=== PATIENT | male | born 1980 | race American Indian/Alaskan Native ===

== ENCOUNTER 2017-09-02 19:38 | Emergency (ER) | payer MEDICARE, OTHER, MEDICAID ==
[2017-09-02] MEDS ORDERED: Ondansetron 4 MG Tab.DIS PO ONE (19:39)
[2017-09-02] MEDS ORDERED: Ondansetron 4 MG/2 ML SDV IV ONE (20:17)
[2017-09-02] MEDS ORDERED: Pantoprazole 40 MG Vial IVPUSH ONE (20:17)
--- NOTE | 2017-09-02 20:23 | EDM.PDOC ---
ED HPI GENERAL MEDICAL PROBLEM - General Chief Complaint: Abdominal Pain Stated Complaint: BLEEDING FROM STOMACH Time Seen by Provider: 09/02/17 20:10 Source of Information: Reports: Patient History Limitations: Reports: No Limitations - History of Present Illness INITIAL COMMENTS - FREE TEXT/NARRATIVE: This 36 yo male patient reports to the ED with upper abdominal pain, nausea, vomiting and intermittent fevers. The patient reports his symptoms started at about 0400 this morning and have continued throughout the day. The patient reports she has noticed that he had blood in his vomit earlier today. The patient reports he has a history of cirrhosis, htn, diabetes and GERD. The patient reports he did drink Peppermint Schnapps yesterday prior to his symptoms starting. The patient has not been into his primary care facility. Onset: Today Onset Date: 09/02/17 Onset Time: 04:00 Duration: Constant, Getting Worse Location: Reports: Abdomen Quality: Reports: Ache, Burning, Sharp Severity: Severe Improves with: Reports: None Worsens with: Reports: None Associated Symptoms: Reports: Fever/Chills, Nausea/Vomiting, Weakness Middle Epigastric Pain Score (Numeric/FACES): 8 - Related Data Allergies Allergy/AdvReac Type Severity Reaction Status Date / Time ibuprofen Allergy Mild Difficulty Verified 09/02/17 20:14 Breathing acetaminophen Allergy Stomach Verified 09/02/17 20:14 Upset Home Meds: Home Meds Insulin Aspart [NovoLOG] 25 units INJECT TID 11/04/14 [History] Lisinopril [Lisinopril] 20 mg PO DAILY 11/04/14 [History] oxyCODONE [oxyCODONE] 10 mg PO Q6H PRN 11/04/14 [History] Ammonium Lactate [Lac-Hydrin 12% Crm] 1 applic TOP DAILY 09/27/15 [History] Esomeprazole [NexIUM] 1 cap PO DAILY 09/27/15 [History] Ibuprofen 1 - 2 tab PO Q6H PRN 09/27/15 [History] Insulin Detemir [Levemir] 25 units INJECT BID 09/27/15 [History] amLODIPine [Norvasc] 1 tab PO DAILY 09/27/15 [History] Famotidine [Pepcid AC] 20 mg PO BID 10/13/15 [History] DULoxetine [Cymbalta] 1 tab PO DAILY 12/03/16 [History] Gabapentin [Neurontin] 1 tab PO TID 12/03/16 [History] Thiamine [Vitamin B-1] 1 tab PO DAILY 12/03/16 [History] Past Medical History - Past Health History Medical/Surgical History: Denies Medical/Surgical History HEENT History: Reports: None Cardiovascular History: Reports: Hypertension Respiratory History: Reports: None Gastrointestinal History: Reports: Chronic Diarrhea, GERD, Hepatitis, Other ( See Below) Other Gastrointestinal History: HEP C Genitourinary History: Reports: None Musculoskeletal History: Reports: Other (See Below) Other Musculoskeletal History: many muscle surgeries; INJURY OF L SHOULDER Neurological History: Reports: None Psychiatric History: Reports: Other (See Below) Other Psychiatric History: ALCOHOL & NICOTINE HABITUATION Endocrine/Metabolic History: Reports: Diabetes, Type II, Obesity/BMI 30+ Hematologic History: Reports: None Immunologic History: Reports: Other (See Below) Other Immunologic History: HX OF MRSA Oncologic (Cancer) History: Reports: None Dermatologic History: Reports: Cellulitis, Other (See Below) Other Dermatologic History: WOUND OF LEG REQUIRED DEBRIBEMENT; ABCESS ON BACK REQUIRED I & D; ABCESS RIGHT HAND - Infectious Disease History Infectious Disease History: Reports: MRSA Other Infectious Disease History: PATIENT HAS LEARNING DISABILITY, POOR HISTORIAN - Past Surgical History HEENT Surgical History: Reports: None Cardiovascular Surgical History: Reports: None Respiratory Surgical History: Reports: None Male Surgical History: Reports: None Neurological Surgical History: Reports: None Oncologic Surgical History: Reports: None Social & Family History - Tobacco Use Smoking Status *Q: Current Some Day Smoker Years of Tobacco use: 29 Packs/Tins Daily: 1 Second Hand Smoke Exposure: No - Caffeine Use Caffeine Use: Reports: Coffee, Soda, Tea - Alcohol Use Days Per Week of Alcohol Use: 0 Date of Last Drink: 09/01/17 - Recreational Drug Use Recreational Drug Use: No Drug Use in Last 12 Months: No Recreational Drug Type: Reports: Marijuana/Hashish, Methamphetamine Recreational Drug Use Frequency: Monthly - Living Situation & Occupation Occupation: Unemployed ED ROS GENERAL - Review of Systems Review Of Systems: ROS reveals no pertinent complaints other than HPI. ED EXAM, GI/ABD - Physical Exam Exam: See Below Exam Limited By: No Limitations General Appearance: Alert, WD/WN, Moderate Distress Eyes: Bilateral: Normal Appearance, EOMI Ears: Normal External Exam, Normal Canal, Hearing Grossly Normal, Normal TMs Nose: Normal Inspection, Normal Mucosa, No Blood Throat/Mouth: Normal Inspection, Normal Lips, Normal Teeth, Normal Gums, Normal Oropharynx, Normal Voice, No Airway Compromise Head: Atraumatic, Normocephalic Neck: Normal Inspection, Supple, Non-Tender, Full Range of Motion Respiratory/Chest: No Respiratory Distress, Lungs Clear, Normal Breath Sounds, No Accessory Muscle Use, Chest Non-Tender Cardiovascular: Normal Peripheral Pulses, Regular Rate, Rhythm, No Edema, No Gallop, No JVD, No Murmur, No Rub GI/Abdominal Exam: Normal Bowel Sounds, Soft, No Organomegaly, No Distention, No Abnormal Bruit, No Mass, Pelvis Stable, Tender (epigastric tenderness) (Male) Exam: Deferred Back Exam: Normal Inspection, Full Range of Motion, NT Extremities: Normal Inspection, Normal Range of Motion, Non-Tender, Normal Capillary Refill, No Pedal Edema Neurological: Alert, Oriented, CN II-XII Intact, Normal Cognition, Normal Gait, Normal Reflexes, No Motor/Sensory Deficits Psychiatric: Normal Affect, Normal Mood Skin Exam: Warm, Dry, Intact, Normal Color, No Rash Lymphatic: No Adenopathy Course - Vital Signs Last Recorded V/S: Last Vital Signs Temp 37.6 C 09/02/17 21:28 Pulse 72 09/02/17 21:28 Resp 18 09/02/17 21:28 BP 130/96 H 09/02/17 21:28 Pulse Ox 100 09/02/17 21:28 - Orders/Labs/Meds Orders: Active Orders 24 hr Category Date Time Status Glucose [Blood Glucose Check, Bedside] [RC] ONETIME Care 09/02/17 20:10 Active DRUG SCREEN URINE BIORAD [URCHEM] Stat Lab 09/02/17 20:10 Uncollected UA W/MICROSCOPIC [URIN] Stat Lab 09/02/17 20:10 Uncollected Ciprofloxacin [Ciprofloxacin HCl] Med 09/02/17 22:59 Once 500 mg PO ONETIME ONE LORazepam [Ativan] Med 09/02/17 22:59 Once 0.5 mg PO ONETIME ONE metroNIDAZOLE Med 09/02/17 22:59 Once 500 mg PO ONETIME ONE Labs: Laboratory Tests 09/02/17 09/02/17 09/02/17 Range/Units 20:03 20:03 20:03 WBC 17.1 H (5.0-10.0) 10^3/uL RBC 5.52 (4.6-6.2) 10^6/uL Hgb 15.7 (14.0-18.0) g/dL Hct 46.3 (40.0-54.0) % MCV 83.9 (80-100) fL MCH 28.4 (27.0-34.0) pg MCHC 33.9 (33.0-35.0) g/dL Plt Count 414 D (150-450) 10^3/uL Neut % (Auto) 90.7 H (42.2-75.2) % Lymph % (Auto) 5.6 L (20.5-50.1) % [place] % (Auto) 3.6 (2-8) % Eos % (Auto) 0.0 L (1.0-3.0) % Baso % (Auto) 0.1 (0.0-1.0) % Sodium 135 (135-145) mmol/L Potassium 3.7 (3.6-5.0) mmol/L Chloride 96 L (101-111) mmol/L Carbon Dioxide 26.0 (21.0-31.0) mmol/L Anion Gap 16.7 BUN 25 H (7-18) mg/dL Creatinine 1.5 H (0.6-1.3) mg/dL Est Cr Clr Drug Dosing 67.13 mL/min Estimated GFR (MDRD) 54 BUN/Creatinine Ratio 16.66 Glucose 187 H (74-105) mg/dL POC Glucose (70-105) mg/dl Calcium 8.9 (8.4-10.2) mg/dl Magnesium 1.9 (1.8-2.5) mg/dL Total Bilirubin 0.8 (0.2-1.0) mg/dL AST 41 (10-42) IU/L ALT 26 (10-60) IU/L Alkaline Phosphatase 70 (42-121) IU/L Ammonia (11-35) umol/L Total Protein 6.7 (6.7-8.2) g/dl Albumin 2.4 L (3.2-5.5) g/dl Globulin 4.3 Albumin/Globulin Ratio 0.56 Amylase 44 (28-100) U/L Lipase 21 L (22-51) U/L Salicylates < 4 Acetaminophen < 10 Ethyl Alcohol < 5 mg/dL 09/02/17 09/02/17 Range/Units 20:11 20:38 WBC (5.0-10.0) 10^3/uL RBC (4.6-6.2) 10^6/uL Hgb (14.0-18.0) g/dL Hct (40.0-54.0) % MCV (80-100) fL MCH (27.0-34.0) pg MCHC (33.0-35.0) g/dL Plt Count (150-450) 10^3/uL Neut % (Auto) (42.2-75.2) % Lymph % (Auto) (20.5-50.1) % [place] % (Auto) (2-8) % Eos % (Auto) (1.0-3.0) % Baso % (Auto) (0.0-1.0) % Sodium (135-145) mmol/L Potassium (3.6-5.0) mmol/L Chloride (101-111) mmol/L Carbon Dioxide (21.0-31.0) mmol/L Anion Gap BUN (7-18) mg/dL Creatinine (0.6-1.3) mg/dL Est Cr Clr Drug Dosing mL/min Estimated GFR (MDRD) BUN/Creatinine Ratio Glucose (74-105) mg/dL POC Glucose 156 H (70-105) mg/dl Calcium (8.4-10.2) mg/dl Magnesium (1.8-2.5) mg/dL Total Bilirubin (0.2-1.0) mg/dL AST (10-42) IU/L ALT (10-60) IU/L Alkaline Phosphatase (42-121) IU/L Ammonia 6 L (11-35) umol/L Total Protein (6.7-8.2) g/dl Albumin (3.2-5.5) g/dl Globulin Albumin/Globulin Ratio Amylase (28-100) U/L Lipase (22-51) U/L Salicylates Acetaminophen Ethyl Alcohol mg/dL Meds: Medications Discontinued Medications Generic Name Dose Route Start Last Admin Trade Name Freq PRN Reason Stop Dose Admin Sodium Chloride 1,000 mls @ 999 mls/hr 09/02/17 21:23 09/02/17 21:27 Normal Saline IV 09/02/17 22:23 999 mls/hr .BOLUS ONE Administration Iopamidol 75 ml 09/02/17 21:30 09/02/17 21:45 Isovue-300 (61%) IVPUSH 09/02/17 21:31 75 ml ONETIME ONE Administration Ondansetron HCl 4 mg 09/02/17 20:17 09/02/17 20:28 Zofran IV 09/02/17 20:18 4 mg ONETIME ONE Administration Pantoprazole Sodium 80 mg 09/02/17 20:17 09/02/17 20:30 Protonix Iv IVPUSH 09/02/17 20:18 80 mg .BOLUS ONE Administration Departure - Departure Time of Disposition: 23:00 Disposition: Home, Self-Care 01 Condition: Fair Clinical Impression: Anxiety about health Diverticulosis Qualifiers: Diverticulosis site: diverticulosis of large intestine Diverticulosis bleeding : diverticulosis without bleeding Qualified Code(s): K57.30 - Diverticulosis of large intestine without perforation or abscess without bleeding - Discharge Information Instructions: Diverticulosis Forms: ED Department Discharge Care Plan Goals: The patient and family were advised of the examination, lab and CT results during the visit. The patient was given IV fluids, IV Zofran, IV Protonix, oral Cipro (500 mg), oral Metronidazole (500 mg) and oral Ativan (0.5 mg). The patient was discharged with scripts for Cipro (500 mg) #14 to take 1 by mouth 2 times per day for 7 days, Metronidazole (500 mg) #21 to take 1 by mouth 3 times per day for 7 days and Zofran (4 mg) #20 to take 1 by mouth every 6 hours as needed for nausea. If the patient has any additional symptoms or concerns, the patient should follow-up with his primary care provider or return to the emergency department. - My Orders Last 24 Hours: My Active Orders 09/02/17 20:10 Glucose [Blood Glucose Check, Bedside] [RC] ONETIME DRUG SCREEN URINE BIORAD [URCHEM] Stat UA W/MICROSCOPIC [URIN] Stat 09/02/17 22:59 Ciprofloxacin [Ciprofloxacin HCl] 500 mg PO ONETIME ONE LORazepam [Ativan] 0.5 mg PO ONETIME ONE metroNIDAZOLE 500 mg PO ONETIME ONE - Assessment/Plan Last 24 Hours: My Active Orders 09/02/17 20:10 Glucose [Blood Glucose Check, Bedside] [RC] ONETIME DRUG SCREEN URINE BIORAD [URCHEM] Stat UA W/MICROSCOPIC [URIN] Stat 09/02/17 22:59 Ciprofloxacin [Ciprofloxacin HCl] 500 mg PO ONETIME ONE LORazepam [Ativan] 0.5 mg PO ONETIME ONE metroNIDAZOLE 500 mg PO ONETIME ONE
[2017-09-02 20:41] LABS: ACETAMINOPHEN < 10
[2017-09-02] MEDS ORDERED: Sodium Chloride 0.9% 1,000 ML IV ONE (21:23)
[2017-09-02 21:29] VITALS: BP 130/96
[2017-09-02] MEDS ORDERED: Iopamidol 612 MG/ML 75 ML Bottle IVPUSH ONE (21:30)
[2017-09-02] MEDS ORDERED: LORazepam 0.5 MG Tab PO ONE (22:59)
[2017-09-02] MEDS ORDERED: Ciprofloxacin 500 MG Tab PO ONE (22:59)
[2017-09-02] MEDS ORDERED: metroNIDAZOLE 250 MG Tab PO ONE (22:59)
[2017-09-02] MEDS ORDERED: Ondansetron 4 MG Tab.DIS ONE (23:07)
== END 2017-09-02 23:14 | disposition home or self-care (01) ==
LOC: DL.ED 19:38
DX: K57.30 Diverticulosis of large intestine without perforation or abscess without bleeding (principal); I10 Essential (primary) hypertension; K21.9 Gastro-esophageal reflux disease without esophagitis; E11.9 Type 2 diabetes mellitus without complications; E66.9 Obesity, unspecified; F17.210 Nicotine dependence, cigarettes, uncomplicated; F41.9 Anxiety disorder, unspecified; Z88.6 Allergy status to analgesic agent; Z88.8 Allergy status to other drugs, medicaments and biological substances; Z79.899 Other long term (current) drug therapy; Z79.4 Long term (current) use of insulin
CPT/HCPCS: 36415; 74177; 80053; 80305; 81001; 82140; 82150; 82962; 83690; 83735; 85025; 87804; 96361; 96374; 96375; 99284; A9270; C9113; G0480; J2405; J7030; Q9967

== ENCOUNTER 2018-01-14 11:28 | Emergency (ER) | payer MEDICARE, OTHER ==
--- NOTE | 2018-01-14 11:40 | EDM.PDOC ---
ED HPI GENERAL MEDICAL PROBLEM - General Stated Complaint: ABD PAIN & OTHER ISSUES. FROM [facility] Time Seen by Provider: 01/14/18 11:45 Source of Information: Reports: Patient History Limitations: Reports: No Limitations - History of Present Illness INITIAL COMMENTS - FREE TEXT/NARRATIVE: This 37 yo male patient was sent to the ED from Dr. Jeffries's office due to medication non-compliance and upper abdominal pain. The patient originally made an appointment with Dr. Jeffries for "diabetes check", but reported upper abdominal pain upon arrival in the [facility] today. The patient was not seen by Dr. Jeffries today. Dr. Jeffries's nurse reported that the patient's blood pressure was 180's/110's upon arrival in the Clinic. The patient has previously been seen by other providers and has been non-compliant with previous treatment plans (through Dr. Starr and [place]). Onset: Unknown/Unsure Location: Reports: Generalized Quality: Reports: Other Severity: Moderate Improves with: Reports: None Worsens with: Reports: None Associated Symptoms: Reports: No Other Symptoms Abdomen Pain Score (Numeric/FACES): 5 - Related Data Allergies Allergy/AdvReac Type Severity Reaction Status Date / Time ibuprofen Allergy Mild Difficulty Verified 09/02/17 20:14 Breathing acetaminophen Allergy Stomach Verified 09/02/17 20:14 Upset Home Meds: Home Meds Insulin Aspart [NovoLOG] 25 units INJECT TID 11/04/14 [History] Lisinopril [Lisinopril] 20 mg PO DAILY 11/04/14 [History] oxyCODONE [oxyCODONE] 10 mg PO Q6H PRN 11/04/14 [History] Ammonium Lactate [Lac-Hydrin 12% Crm] 1 applic TOP DAILY 09/27/15 [History] Esomeprazole [NexIUM] 1 cap PO DAILY 09/27/15 [History] Ibuprofen 1 - 2 tab PO Q6H PRN 09/27/15 [History] Insulin Detemir [Levemir] 25 units INJECT BID 09/27/15 [History] amLODIPine [Norvasc] 1 tab PO DAILY 09/27/15 [History] Famotidine [Pepcid AC] 20 mg PO BID 10/13/15 [History] Gabapentin [Neurontin] 1 tab PO TID 12/03/16 [History] Thiamine [Vitamin B-1] 1 tab PO DAILY 12/03/16 [History] Past Medical History - Past Health History Medical/Surgical History: Denies Medical/Surgical History HEENT History: Reports: None Cardiovascular History: Reports: Hypertension Respiratory History: Reports: None Gastrointestinal History: Reports: Chronic Diarrhea, GERD, Hepatitis, Other ( See Below) Other Gastrointestinal History: HEP C Genitourinary History: Reports: None Musculoskeletal History: Reports: Other (See Below) Other Musculoskeletal History: many muscle surgeries; INJURY OF L SHOULDER Neurological History: Reports: None Psychiatric History: Reports: Other (See Below) Other Psychiatric History: ALCOHOL & NICOTINE HABITUATION Endocrine/Metabolic History: Reports: Diabetes, Type II, Obesity/BMI 30+ Hematologic History: Reports: None Immunologic History: Reports: Other (See Below) Other Immunologic History: HX OF MRSA Oncologic (Cancer) History: Reports: None Dermatologic History: Reports: Cellulitis, Other (See Below) Other Dermatologic History: WOUND OF LEG REQUIRED DEBRIBEMENT; ABCESS ON BACK REQUIRED I & D; ABCESS RIGHT HAND - Infectious Disease History Infectious Disease History: Reports: MRSA Other Infectious Disease History: PATIENT HAS LEARNING DISABILITY, POOR HISTORIAN - Past Surgical History HEENT Surgical History: Reports: None Cardiovascular Surgical History: Reports: None Respiratory Surgical History: Reports: None Male Surgical History: Reports: None Neurological Surgical History: Reports: None Oncologic Surgical History: Reports: None Social & Family History - Tobacco Use Smoking Status *Q: Current Some Day Smoker Years of Tobacco use: 29 Packs/Tins Daily: 1 Second Hand Smoke Exposure: No - Caffeine Use Caffeine Use: Reports: Coffee, Soda, Tea - Alcohol Use Days Per Week of Alcohol Use: 0 - Recreational Drug Use Recreational Drug Use: No Drug Use in Last 12 Months: No Recreational Drug Type: Reports: Marijuana/Hashish, Methamphetamine Recreational Drug Use Frequency: Monthly - Living Situation & Occupation Occupation: Unemployed ED ROS GENERAL - Review of Systems Review Of Systems: ROS reveals no pertinent complaints other than HPI. ED EXAM, GENERAL - Physical Exam Exam: See Below Exam Limited By: No Limitations General Appearance: Alert, WD/WN, No Apparent Distress Eye Exam: Bilateral Eye: EOMI, Normal Inspection, PERRL Ears: Normal External Exam, Normal Canal, Hearing Grossly Normal, Normal TMs Nose: Normal Inspection, Normal Mucosa, No Blood Throat/Mouth: Normal Inspection, Normal Lips, Normal Teeth, Normal Gums, Normal Oropharynx, Normal Voice, No Airway Compromise Head: Atraumatic, Normocephalic Neck: Normal Inspection, Supple, Non-Tender, Full Range of Motion Respiratory/Chest: No Respiratory Distress, Lungs Clear, Normal Breath Sounds, No Accessory Muscle Use, Chest Non-Tender Cardiovascular: Normal Peripheral Pulses, Regular Rate, Rhythm, No Edema, No Gallop, No JVD, No Murmur, No Rub GI/Abdominal: Normal Bowel Sounds, Soft, Non-Tender, No Organomegaly, No Distention, No Abnormal Bruit, No Mass (Male) Exam: Deferred Rectal (Males) Exam: Deferred Back Exam: Normal Inspection, Full Range of Motion, NT Extremities: Normal Inspection, Normal Range of Motion, Non-Tender, Normal Capillary Refill, No Pedal Edema Neurological: Alert, Oriented, CN II-XII Intact, Normal Gait Psychiatric: Normal Affect, Normal Mood Skin Exam: Warm, Dry, Intact, Normal Color, No Rash Lymphatic: No Adenopathy Course - Vital Signs Last Recorded V/S: Last Vital Signs Temp 36.4 C 01/14/18 11:35 Pulse 90 01/14/18 11:35 Resp 18 01/14/18 11:35 BP 158/110 H 01/14/18 12:38 Pulse Ox 100 01/14/18 11:35 - Orders/Labs/Meds Labs: Laboratory Tests 01/14/18 01/14/18 01/14/18 Range/Units 11:37 11:37 11:44 WBC (5.0-10.0) 10^3/uL RBC (4.6-6.2) 10^6/uL Hgb (14.0-18.0) g/dL Hct (40.0-54.0) % MCV (80-100) fL MCH (27.0-34.0) pg MCHC (33.0-35.0) g/dL Plt Count (150-450) 10^3/uL Neut % (Auto) (42.2-75.2) % Lymph % (Auto) (20.5-50.1) % [place] % (Auto) (2-8) % Eos % (Auto) (1.0-3.0) % Baso % (Auto) (0.0-1.0) % Sodium (135-145) mmol/L Potassium (3.6-5.0) mmol/L Chloride (101-111) mmol/L Carbon Dioxide (21.0-31.0) mmol/L Anion Gap BUN (7-18) mg/dL Creatinine (0.6-1.3) mg/dL Est Cr Clr Drug Dosing mL/min Estimated GFR (MDRD) BUN/Creatinine Ratio Glucose (74-105) mg/dL Calcium (8.4-10.2) mg/dl Magnesium 1.9 (1.8-2.5) mg/dL Total Bilirubin (0.2-1.0) mg/dL AST (10-42) IU/L ALT (10-60) IU/L Alkaline Phosphatase (42-121) IU/L Ammonia (11-35) umol/L Total Protein (6.7-8.2) g/dl Albumin (3.2-5.5) g/dl Globulin Albumin/Globulin Ratio Amylase 132 H (28-100) U/L Lipase 52 H (22-51) U/L Urine Color Light yellow (YELLOW) Urine Appearance Slightly cloudy (CLEAR) Urine pH 7.0 (5.0-9.0) Ur Specific [place] 1.015 (1.005-1.030) Urine Protein >=300 H (NEGATIVE) Urine Glucose (UA) 100 H (NEGATIVE) Urine Ketones Negative (NEGATIVE) Urine Occult Blood Small H (NEGATIVE) Urine Nitrite Negative (NEGATIVE) Urine Bilirubin Negative (NEGATIVE) Urine Urobilinogen 0.2 (0.2-1.0) mg/dL Ur Leukocyte Esterase Negative (NEGATIVE) Urine RBC 0-5 /HPF Urine WBC Not seen (0-5/HPF) /HPF Ur Epithelial Cells Rare /HPF Urine Mucus Rare /LPF Salicylates < 4 Urine Opiates Screen Negative (NEGATIVE) Ur Oxycodone Screen Positive H (NEGATIVE) Urine Methadone Screen Negative (NEGATIVE) Acetaminophen < 10 Ur Barbiturates Screen Negative (NEGATIVE) U Tricyclic Antidepress Negative (NEGATIVE) Ur Phencyclidine Scrn Negative (NEGATIVE) Ur Amphetamine Screen Negative (NEGATIVE) U Methamphetamines Scrn Negative (NEGATIVE) Urine MDMA Screen Negative (NEGATIVE) U Benzodiazepines Scrn Positive H (NEGATIVE) Urine Cocaine Screen Negative (NEGATIVE) U Marijuana (THC) Screen Positive H (NEGATIVE) Ethyl Alcohol < 5 mg/dL Ketones Negative 01/14/18 01/14/18 01/14/18 Range/Units 11:44 11:44 11:44 WBC 7.4 (5.0-10.0) 10^3/uL RBC 5.14 (4.6-6.2) 10^6/uL Hgb 14.3 (14.0-18.0) g/dL Hct 44.3 (40.0-54.0) % MCV 86.2 (80-100) fL MCH 27.8 (27.0-34.0) pg MCHC 32.3 L (33.0-35.0) g/dL Plt Count 369 (150-450) 10^3/uL Neut % (Auto) 67.6 (42.2-75.2) % Lymph % (Auto) 17.9 L (20.5-50.1) % [place] % (Auto) 8.3 H (2-8) % Eos % (Auto) 5.7 H (1.0-3.0) % Baso % (Auto) 0.5 (0.0-1.0) % Sodium 137 (135-145) mmol/L Potassium 4.9 (3.6-5.0) mmol/L Chloride 110 D (101-111) mmol/L Carbon Dioxide 19.0 L (21.0-31.0) mmol/L Anion Gap 12.9 BUN 17 (7-18) mg/dL Creatinine 1.6 H (0.6-1.3) mg/dL Est Cr Clr Drug Dosing 66.54 mL/min Estimated GFR (MDRD) 49 BUN/Creatinine Ratio 10.62 Glucose 114 H (74-105) mg/dL Calcium 8.4 (8.4-10.2) mg/dl Magnesium (1.8-2.5) mg/dL Total Bilirubin 0.4 (0.2-1.0) mg/dL AST 29 (10-42) IU/L ALT 28 (10-60) IU/L Alkaline Phosphatase 63 (42-121) IU/L Ammonia 21 (11-35) umol/L Total Protein 6.2 L (6.7-8.2) g/dl Albumin 2.2 L (3.2-5.5) g/dl Globulin 4.0 Albumin/Globulin Ratio 0.55 Amylase (28-100) U/L Lipase (22-51) U/L Urine Color (YELLOW) Urine Appearance (CLEAR) Urine pH (5.0-9.0) Ur Specific [place] (1.005-1.030) Urine Protein (NEGATIVE) Urine Glucose (UA) (NEGATIVE) Urine Ketones (NEGATIVE) Urine Occult Blood (NEGATIVE) Urine Nitrite (NEGATIVE) Urine Bilirubin (NEGATIVE) Urine Urobilinogen (0.2-1.0) mg/dL Ur Leukocyte Esterase (NEGATIVE) Urine RBC /HPF Urine WBC (0-5/HPF) /HPF Ur Epithelial Cells /HPF Urine Mucus /LPF Salicylates Urine Opiates Screen (NEGATIVE) Ur Oxycodone Screen (NEGATIVE) Urine Methadone Screen (NEGATIVE) Acetaminophen Ur Barbiturates Screen (NEGATIVE) U Tricyclic Antidepress (NEGATIVE) Ur Phencyclidine Scrn (NEGATIVE) Ur Amphetamine Screen (NEGATIVE) U Methamphetamines Scrn (NEGATIVE) Urine MDMA Screen (NEGATIVE) U Benzodiazepines Scrn (NEGATIVE) Urine Cocaine Screen (NEGATIVE) U Marijuana (THC) Screen (NEGATIVE) Ethyl Alcohol mg/dL Ketones Meds: Medications Discontinued Medications Generic Name Dose Route Start Last Admin Trade Name Freq PRN Reason Stop Dose Admin Amlodipine Besylate 5 mg 01/14/18 12:31 01/14/18 12:38 Norvasc PO 01/14/18 12:32 5 mg ONETIME ONE Administration Lisinopril 20 mg 01/14/18 12:31 01/14/18 12:38 Prinivil PO 01/14/18 12:32 20 mg ONETIME ONE Administration Departure - Departure Time of Disposition: 13:29 Disposition: Home, Self-Care 01 Condition: Fair Clinical Impression: Hypertension Qualifiers: Hypertension type: unspecified Qualified Code(s): I10 - Essential (primary) hypertension Diabetes Qualifiers: Diabetes mellitus type: type 2 Diabetes mellitus complication status: with unspecified complications Diabetes mellitus terminal manager insulin use: with terminal manager use Qualified Code(s): E11.8 - Type 2 diabetes mellitus with unspecified complications - Discharge Information Instructions: Managing Your Hypertension, Type 2 Diabetes Mellitus, Diagnosis, Adult, [id number] Forms: ED Department Discharge Care Plan Goals: The patient was advised of the examination and lab results during the visit. The patient was given an oral dose of Norvasc and Lisinopril while in the ED. The patient was discharged with Norvasc (5 mg) #7 to take 1 by mouth daily and Lisinopril (20 mg) #14 to take 1 by mouth 2 times per day. The patient was advised to physically walk over to [facility] to establish another appointment with a primary care provider for continued evaluation and further management. If the patient has any additional symptoms or concerns, the patient should follow-up with his primary care facility or return to the emergency department.
[2018-01-14 12:14] LABS: ACETAMINOPHEN < 10
[2018-01-14 12:31] VITALS: BP 158/110
[2018-01-14] MEDS: amLODIPine 5 MG Tab PO ONE (12:38)
[2018-01-14] MEDS: Lisinopril 20 MG Tab PO ONE (12:38)
== END 2018-01-14 13:35 | disposition home or self-care (01) ==
LOC: DL.ED 11:28
DX: I10 Essential (primary) hypertension (principal); E11.8 Type 2 diabetes mellitus with unspecified complications; E66.9 Obesity, unspecified; K21.9 Gastro-esophageal reflux disease without esophagitis; Z79.899 Other long term (current) drug therapy; Z88.6 Allergy status to analgesic agent
CPT/HCPCS: 36415; 80053; 80305; 81001; 82009; 82140; 82150; 83690; 83735; 85025; 99284; A9270; G0480

== ENCOUNTER 2018-03-16 19:54 | Inpatient (IN) | payer MEDICARE, MEDICAID ==
--- NOTE | 2018-03-16 21:09 | EDM.PDOC ---
ED HPI GENERAL MEDICAL PROBLEM - General Chief Complaint: General Stated Complaint: ACUTE RENAL FAILURE Time Seen by Provider: 03/16/18 22:00 Source of Information: Reports: Patient, RN Notes Reviewed History Limitations: Reports: No Limitations - History of Present Illness INITIAL COMMENTS - FREE TEXT/NARRATIVE: ED with c/o of lower leg swelling, chills, cough. Lowere leg pain bilaterally, started 4-5 days ago. Was seen in clinic today and [facility] for renal failure recommended. Patient had no transportation so came to ED. Bilateral Feet Pain Score (Numeric/FACES): 8 - Related Data Allergies Allergy/AdvReac Type Severity Reaction Status Date / Time ibuprofen Allergy Mild Difficulty Verified 03/16/18 23:34 Breathing acetaminophen Allergy Stomach Verified 03/16/18 23:34 Upset Home Meds: Home Meds Insulin Aspart [NovoLOG] 30 units INJECT TID 11/04/14 [History] oxyCODONE 10 mg PO BID PRN 11/04/14 [History] Insulin Detemir [Levemir] 60 units INJECT BEDTIME 09/27/15 [History] amLODIPine [Norvasc] 2 tab PO DAILY 09/27/15 [History] Gabapentin [Neurontin] 1 tab PO TID 12/03/16 [History] Past Medical History - Past Health History Medical/Surgical History: Denies Medical/Surgical History HEENT History: Reports: None Cardiovascular History: Reports: Hypertension Respiratory History: Reports: None Gastrointestinal History: Reports: Chronic Diarrhea, GERD, Hepatitis, Other ( See Below) Other Gastrointestinal History: HEP C Genitourinary History: Reports: None Musculoskeletal History: Reports: Other (See Below) Other Musculoskeletal History: many muscle surgeries; INJURY OF L SHOULDER Neurological History: Reports: None Psychiatric History: Reports: Other (See Below) Other Psychiatric History: ALCOHOL & NICOTINE HABITUATION Endocrine/Metabolic History: Reports: Diabetes, Type II, Obesity/BMI 30+ Hematologic History: Reports: None Immunologic History: Reports: Other (See Below) Other Immunologic History: HX OF MRSA Oncologic (Cancer) History: Reports: None Dermatologic History: Reports: Cellulitis, Other (See Below) Other Dermatologic History: WOUND OF LEG REQUIRED DEBRIBEMENT; ABCESS ON BACK REQUIRED I & D; ABCESS RIGHT HAND - Infectious Disease History Infectious Disease History: Reports: Hepatitis C, MRSA Other Infectious Disease History: PATIENT HAS LEARNING DISABILITY, POOR HISTORIAN - Past Surgical History HEENT Surgical History: Reports: None Cardiovascular Surgical History: Reports: None Respiratory Surgical History: Reports: None Male Surgical History: Reports: None Neurological Surgical History: Reports: None Oncologic Surgical History: Reports: None Social & Family History - Family History Family Medical History: Noncontributory - Tobacco Use Smoking Status *Q: Never Smoker Years of Tobacco use: 29 Packs/Tins Daily: 1 Second Hand Smoke Exposure: No - Caffeine Use Caffeine Use: Reports: Coffee, Soda - Alcohol Use Days Per Week of Alcohol Use: 0 - Recreational Drug Use Recreational Drug Use: No Drug Use in Last 12 Months: No Recreational Drug Type: Reports: Marijuana/Hashish, Methamphetamine Recreational Drug Use Frequency: Monthly - Living Situation & Occupation Occupation: Unemployed ED ROS GENERAL - Review of Systems Review Of Systems: See Below Constitutional: Reports: Malaise HEENT: Reports: No Symptoms Respiratory: Reports: Cough Cardiovascular: Reports: Edema (bilateral llower legs to knees) GI/Abdominal: Reports: No Symptoms : Reports: Other (difficulty with starting stream) Musculoskeletal: Reports: Leg Pain Skin: Reports: No Symptoms Neurological: Reports: No Symptoms ED EXAM, GENERAL - Physical Exam Exam: See Below Exam Limited By: No Limitations General Appearance: Alert, Mild Distress Eye Exam: Bilateral Eye: EOMI Ears: Normal External Exam, Normal TMs Nose: Normal Inspection Throat/Mouth: Normal Inspection Head: Atraumatic, Normocephalic Neck: Normal Inspection Respiratory/Chest: Lungs Clear, Decreased Breath Sounds (bases), Other (dry cough). No: Crackles, Rales, Wheezing Cardiovascular: Normal Peripheral Pulses, Regular Rate, Rhythm GI/Abdominal: Normal Bowel Sounds, Soft, Pelvis Stable Back Exam: Normal Inspection Extremities: Other (4+ edema bilateral lower extremities painful to touch) Neurological: Alert, Oriented, Normal Cognition Skin Exam: Warm, Dry, Intact Course - Vital Signs Last Recorded V/S: Last Vital Signs Temp 98.0 F 03/17/18 03:12 Pulse 93 03/17/18 03:12 Resp 18 03/17/18 03:12 BP 150/95 H 03/17/18 03:12 Pulse Ox 99 03/16/18 23:12 - Orders/Labs/Meds Orders: Active Orders 24 hr Category Date Time Status Glucose [Blood Glucose Check, Bedside] [RC] QIDACANDBED Care 03/16/18 23:09 Active Abdomen Ltd [US] Routine Exams 03/17/18 08:00 Ordered BASIC METABOLIC PANEL,BMP [CHEM] AM Lab 03/17/18 05:15 Ordered CBC WITH AUTO DIFF [HEME] AM Lab 03/17/18 05:15 Ordered CULTURE BLOOD [BC] Stat Lab 03/16/18 21:00 Received CULTURE BLOOD [BC] Stat Lab 03/16/18 21:05 Received UA W/MICROSCOPIC [URIN] Stat Lab 03/16/18 21:13 Ordered Furosemide [Lasix] Med 03/16/18 23:15 Active 40 mg IVPUSH BID Insulin Aspart [NovoLOG] Med 03/17/18 08:00 Active See Protocol SUBCUT TIDAC Nicotine [Habitrol] Med 03/16/18 23:15 Active 14 mg TRDERM DAILY oxyCODONE Med 03/16/18 23:08 Active 5 mg PO Q6H PRN Blood Culture x2 Reflex Set [OM.PC] Stat Oth 03/16/18 20:33 Ordered Medication Orders Furosemide (Lasix) 40 mg IVPUSH BID NITIN Last Admin: 03/17/18 00:08 Dose: 40 mg Heparin Sodium (Porcine) (Heparin Sodium) 5,000 units SUBCUT Q8HR NITIN Insulin Aspart (Novolog) 0 unit SUBCUT TIDAC NITIN; Protocol Nicotine (Habitrol) 14 mg TRDERM DAILY [facility] Last Admin: 03/16/18 23:30 Dose: Not Given Oxycodone HCl (Oxycodone) 5 mg PO Q6H PRN PRN Reason: Pain Last Admin: 03/16/18 23:53 Dose: 5 mg Sodium Chloride (Saline Flush) 10 ml FLUSH ASDIRECTED PRN PRN Reason: Keep Vein Open Zolpidem Tartrate (Ambien) 5 mg PO BEDTIME PRN PRN Reason: Sleep Last Admin: 03/17/18 00:00 Dose: 5 mg Labs: Laboratory Tests 03/16/18 03/16/18 03/16/18 Range/Units 21:00 21:00 21:00 WBC 9.3 (5.0-10.0) 10^3/uL RBC 3.95 L (4.6-6.2) 10^6/uL Hgb 11.2 L D (14.0-18.0) g/dL Hct 35.4 L (40.0-54.0) % MCV 89.6 D (80-100) fL MCH 28.4 (27.0-34.0) pg MCHC 31.6 L (33.0-35.0) g/dL Plt Count 332 (150-450) 10^3/uL Neut % (Auto) 68.4 (42.2-75.2) % Lymph % (Auto) 15.3 L (20.5-50.1) % [place] % (Auto) 9.3 H (2-8) % Eos % (Auto) 6.6 H (1.0-3.0) % Baso % (Auto) 0.4 (0.0-1.0) % Sodium 136 (135-145) mmol/L Potassium 4.7 (3.6-5.0) mmol/L Chloride 112 H (101-111) mmol/L Carbon Dioxide 21.0 (21.0-31.0) mmol/L Anion Gap 7.7 BUN 27 H (7-18) mg/dL Creatinine 2.3 H (0.6-1.3) mg/dL Est Cr Clr Drug Dosing 71.89 mL/min Estimated GFR (MDRD) 33 BUN/Creatinine Ratio 11.73 Glucose 123 H (74-105) mg/dL Lactic Acid 0.7 (0.5-2.2) mmol/L Calcium 7.4 L (8.4-10.2) mg/dl Magnesium 1.7 L (1.8-2.5) mg/dL Total Bilirubin 0.3 (0.2-1.0) mg/dL AST 48 H (10-42) IU/L ALT 40 (10-60) IU/L Alkaline Phosphatase 83 (42-121) IU/L Troponin I 0.04 H* (0.00-0.02) ng/ml B-Natriuretic Peptide (0-100) pg/ml Total Protein 5.2 L (6.7-8.2) g/dl Albumin 1.5 L (3.2-5.5) g/dl Globulin 3.7 Albumin/Globulin Ratio 0.41 Urine Color (YELLOW) Urine Appearance (CLEAR) Urine pH (5.0-9.0) Ur Specific [place] (1.005-1.030) Urine Protein (NEGATIVE) Urine Glucose (UA) (NEGATIVE) Urine Ketones (NEGATIVE) Urine Occult Blood (NEGATIVE) Urine Nitrite (NEGATIVE) Urine Bilirubin (NEGATIVE) Urine Urobilinogen (0.2-1.0) mg/dL Ur Leukocyte Esterase (NEGATIVE) Urine RBC /HPF Urine WBC (0-5/HPF) /HPF Ur Epithelial Cells /HPF Urine Bacteria (0-FEW/HPF) /HPF Ketones Negative 03/16/18 03/16/18 Range/Units 21:00 21:13 WBC (5.0-10.0) 10^3/uL RBC (4.6-6.2) 10^6/uL Hgb (14.0-18.0) g/dL Hct (40.0-54.0) % MCV (80-100) fL MCH (27.0-34.0) pg MCHC (33.0-35.0) g/dL Plt Count (150-450) 10^3/uL Neut % (Auto) (42.2-75.2) % Lymph % (Auto) (20.5-50.1) % [place] % (Auto) (2-8) % Eos % (Auto) (1.0-3.0) % Baso % (Auto) (0.0-1.0) % Sodium (135-145) mmol/L Potassium (3.6-5.0) mmol/L Chloride (101-111) mmol/L Carbon Dioxide (21.0-31.0) mmol/L Anion Gap BUN (7-18) mg/dL Creatinine (0.6-1.3) mg/dL Est Cr Clr Drug Dosing mL/min Estimated GFR (MDRD) BUN/Creatinine Ratio Glucose (74-105) mg/dL Lactic Acid (0.5-2.2) mmol/L Calcium (8.4-10.2) mg/dl Magnesium (1.8-2.5) mg/dL Total Bilirubin (0.2-1.0) mg/dL AST (10-42) IU/L ALT (10-60) IU/L Alkaline Phosphatase (42-121) IU/L Troponin I (0.00-0.02) ng/ml B-Natriuretic Peptide 1170 H (0-100) pg/ml Total Protein (6.7-8.2) g/dl Albumin (3.2-5.5) g/dl Globulin Albumin/Globulin Ratio Urine Color Yellow (YELLOW) Urine Appearance Clear (CLEAR) Urine pH 7.0 (5.0-9.0) Ur Specific [place] 1.025 (1.005-1.030) Urine Protein >=300 H (NEGATIVE) Urine Glucose (UA) 250 H (NEGATIVE) Urine Ketones Negative (NEGATIVE) Urine Occult Blood Moderate H (NEGATIVE) Urine Nitrite Negative (NEGATIVE) Urine Bilirubin Negative (NEGATIVE) Urine Urobilinogen 0.2 (0.2-1.0) mg/dL Ur Leukocyte Esterase Negative (NEGATIVE) Urine RBC 0-5 /HPF Urine WBC 0-5 (0-5/HPF) /HPF Ur Epithelial Cells Few /HPF Urine Bacteria Few (0-FEW/HPF) /HPF Ketones Meds: Medications Generic Name Dose Route Start Last Admin Trade Name Freq PRN Reason Stop Dose Admin Furosemide 40 mg 03/16/18 23:15 03/17/18 00:08 Lasix IVPUSH 40 mg BID NITIN Administration Heparin Sodium (Porcine) 5,000 units 03/17/18 06:00 Heparin Sodium SUBCUT Q8HR [facility] Insulin Aspart 0 unit 03/17/18 08:00 Novolog SUBCUT TIDAC [facility] Protocol Nicotine 14 mg 03/16/18 23:15 03/16/18 23:30 Habitrol TRDERM Not Given DAILY [facility] Oxycodone HCl 5 mg 03/16/18 23:08 03/16/18 23:53 Oxycodone PO 5 mg Q6H PRN Administration Pain Sodium Chloride 10 ml 03/16/18 23:12 Saline Flush FLUSH ASDIRECTED PRN Keep Vein Open Zolpidem Tartrate 5 mg 03/16/18 23:12 03/17/18 00:00 Ambien PO 5 mg BEDTIME PRN Administration Sleep Departure - Departure Time of Disposition: 23:30 Disposition: Admitted As Inpatient 68 Condition: Undetermined Clinical Impression: Non compliance w medication regimen, IDDM (insulin dependent diabetes mellitus) , Pain, Elevated troponin Acute renal failure Qualifiers: Acute renal failure type: unspecified Qualified Code(s): N17.9 - Acute kidney failure, unspecified - Discharge Information - My Orders Last 24 Hours: My Active Orders 03/16/18 20:33 Blood Culture x2 Reflex Set [OM.PC] Stat 03/16/18 21:00 CULTURE BLOOD [BC] Stat 03/16/18 21:05 CULTURE BLOOD [BC] Stat 03/16/18 21:13 UA W/MICROSCOPIC [URIN] Stat - Assessment/Plan Last 24 Hours: My Active Orders 03/16/18 20:33 Blood Culture x2 Reflex Set [OM.PC] Stat 03/16/18 21:00 CULTURE BLOOD [BC] Stat 03/16/18 21:05 CULTURE BLOOD [BC] Stat 03/16/18 21:13 UA W/MICROSCOPIC [URIN] Stat
[2018-03-16 21:43] LABS: CHLORIDE,CL 112 mmol/L (101-111); SODIUM,NA 136 mmol/L (135-145)
--- NOTE | 2018-03-16 23:20 | PCM.HP ---
H&P History of Present Illness - General Date of Service: 03/16/18 Admit Problem/Dx: Admission Diagnosis/Problem Admission Diagnosis/Problem Acute renal failure Source of Information: Patient, Provider - History of Present Illness Initial Comments - Free Text/Narative: The patient is a 37-year-old gentleman with a history of diabetes, hypertension , chronic pain. He says he has been off medications for about a month. Except his oxycodone. He was not taking JOSE R inhibitor, not taking other pain medications other than oxycodone, not using insulin. The patient presented with bilateral lower extremity swelling. The swelling started about 5 days prior to presentation. This has been worsening and severe. Associated with shortness of breath with activity. No chest pain. Bilateral Feet Pain Score (Numeric/FACES): 8 - Related Data Allergies/Adverse Reactions: Allergies Allergy/AdvReac Type Severity Reaction Status Date / Time ibuprofen Allergy Mild Difficulty Verified 03/16/18 19:26 Breathing acetaminophen Allergy Stomach Verified 03/16/18 19:26 Upset Home Medications: Home Meds Insulin Aspart [NovoLOG] 25 units INJECT TID 11/04/14 [History] Lisinopril 20 mg PO DAILY 11/04/14 [History] oxyCODONE 10 mg PO Q6H PRN 11/04/14 [History] Ammonium Lactate [Lac-Hydrin 12% Crm] 1 applic TOP DAILY 09/27/15 [History] Esomeprazole [NexIUM] 1 cap PO DAILY 09/27/15 [History] Ibuprofen 1 - 2 tab PO Q6H PRN 09/27/15 [History] Insulin Detemir [Levemir] 25 units INJECT BID 09/27/15 [History] amLODIPine [Norvasc] 1 tab PO DAILY 09/27/15 [History] Famotidine [Pepcid AC] 20 mg PO BID 10/13/15 [History] Gabapentin [Neurontin] 1 tab PO TID 12/03/16 [History] Thiamine [Vitamin B-1] 1 tab PO DAILY 12/03/16 [History] Past Medical History - Past Health History Medical/Surgical History: Denies Medical/Surgical History HEENT History: Reports: None Cardiovascular History: Reports: Hypertension Respiratory History: Reports: None Gastrointestinal History: Reports: Chronic Diarrhea, GERD, Hepatitis, Other ( See Below) Other Gastrointestinal History: HEP C Genitourinary History: Reports: None Musculoskeletal History: Reports: Other (See Below) Other Musculoskeletal History: many muscle surgeries; INJURY OF L SHOULDER Neurological History: Reports: None Psychiatric History: Reports: Other (See Below) Other Psychiatric History: ALCOHOL & NICOTINE HABITUATION Endocrine/Metabolic History: Reports: Diabetes, Type II, Obesity/BMI 30+ Hematologic History: Reports: None Immunologic History: Reports: Other (See Below) Other Immunologic History: HX OF MRSA Oncologic (Cancer) History: Reports: None Dermatologic History: Reports: Cellulitis, Other (See Below) Other Dermatologic History: WOUND OF LEG REQUIRED DEBRIBEMENT; ABCESS ON BACK REQUIRED I & D; ABCESS RIGHT HAND - Infectious Disease History Infectious Disease History: Reports: MRSA Other Infectious Disease History: PATIENT HAS LEARNING DISABILITY, POOR HISTORIAN - Past Surgical History HEENT Surgical History: Reports: None Cardiovascular Surgical History: Reports: None Respiratory Surgical History: Reports: None Male Surgical History: Reports: None Neurological Surgical History: Reports: None Oncologic Surgical History: Reports: None Social & Family History - Family History Family Medical History: Noncontributory - Tobacco Use Smoking Status *Q: Current Some Day Smoker Years of Tobacco use: 29 Packs/Tins Daily: 1 Second Hand Smoke Exposure: No - Caffeine Use Caffeine Use: Reports: Coffee, Soda, Tea - Alcohol Use Days Per Week of Alcohol Use: 0 - Recreational Drug Use Recreational Drug Use: No Drug Use in Last 12 Months: No Recreational Drug Type: Reports: Marijuana/Hashish, Methamphetamine Recreational Drug Use Frequency: Monthly - Living Situation & Occupation Occupation: Unemployed H&P Review of Systems - Review of Systems: Review Of Systems: See Below General: Denies: Fever Pulmonary: Reports: Shortness of Breath Cardiovascular: Reports: Edema. Denies: Chest Pain (With activity) Gastrointestinal: Denies: Abdominal Pain Genitourinary: Denies: Dysuria, Frequency Psychiatric: Denies: Confusion Exam - Exam Exam: See Below - Vital Signs Vital Signs: Last Vital Signs Temp 37.4 C 03/16/18 22:11 Pulse 84 03/16/18 22:11 Resp 18 03/16/18 22:11 BP 106/88 03/16/18 22:11 Pulse Ox 97 03/16/18 22:11 Weight: 113.376 kg - Exam Quality Assessment: No: Supplemental Oxygen General: Alert, Oriented Neck: Supple Lungs: Clear to Auscultation, Normal Respiratory Effort Cardiovascular: Regular Rate, Regular Rhythm GI/Abdominal Exam: Normal Bowel Sounds, Soft, Non-Tender Extremities: Pedal Edema (3+ bilateral edema up to thigh and abdominal wall) Skin: Warm, Dry Neuro Extensive - Mental Status: Alert, Oriented x3, Normal Mood/Affect - Patient Data Lab Results Last 24 hrs: Laboratory Results - last 24 hr 03/16/18 03/16/18 03/16/18 Range/Units 21:00 21:00 21:00 WBC 9.3 (5.0-10.0) 10^3/uL RBC 3.95 L (4.6-6.2) 10^6/uL Hgb 11.2 L D (14.0-18.0) g/dL Hct 35.4 L (40.0-54.0) % MCV 89.6 D (80-100) fL MCH 28.4 (27.0-34.0) pg MCHC 31.6 L (33.0-35.0) g/dL Plt Count 332 (150-450) 10^3/uL Neut % (Auto) 68.4 (42.2-75.2) % Lymph % (Auto) 15.3 L (20.5-50.1) % [place] % (Auto) 9.3 H (2-8) % Eos % (Auto) 6.6 H (1.0-3.0) % Baso % (Auto) 0.4 (0.0-1.0) % Sodium 136 (135-145) mmol/L Potassium 4.7 (3.6-5.0) mmol/L Chloride 112 H (101-111) mmol/L Carbon Dioxide 21.0 (21.0-31.0) mmol/L Anion Gap 7.7 BUN 27 H (7-18) mg/dL Creatinine 2.3 H (0.6-1.3) mg/dL Est Cr Clr Drug Dosing 71.89 mL/min Estimated GFR (MDRD) 33 BUN/Creatinine Ratio 11.73 Glucose 123 H (74-105) mg/dL Lactic Acid 0.7 (0.5-2.2) mmol/L Calcium 7.4 L (8.4-10.2) mg/dl Magnesium 1.7 L (1.8-2.5) mg/dL Total Bilirubin 0.3 (0.2-1.0) mg/dL AST 48 H (10-42) IU/L ALT 40 (10-60) IU/L Alkaline Phosphatase 83 (42-121) IU/L Troponin I 0.04 H* (0.00-0.02) ng/ml B-Natriuretic Peptide (0-100) pg/ml Total Protein 5.2 L (6.7-8.2) g/dl Albumin 1.5 L (3.2-5.5) g/dl Globulin 3.7 Albumin/Globulin Ratio 0.41 Urine Color (YELLOW) Urine Appearance (CLEAR) Urine pH (5.0-9.0) Ur Specific [place] (1.005-1.030) Urine Protein (NEGATIVE) Urine Glucose (UA) (NEGATIVE) Urine Ketones (NEGATIVE) Urine Occult Blood (NEGATIVE) Urine Nitrite (NEGATIVE) Urine Bilirubin (NEGATIVE) Urine Urobilinogen (0.2-1.0) mg/dL Ur Leukocyte Esterase (NEGATIVE) Urine RBC /HPF Urine WBC (0-5/HPF) /HPF Ur Epithelial Cells /HPF Urine Bacteria (0-FEW/HPF) /HPF Ketones Negative 03/16/18 03/16/18 Range/Units 21:00 21:13 WBC (5.0-10.0) 10^3/uL RBC (4.6-6.2) 10^6/uL Hgb (14.0-18.0) g/dL Hct (40.0-54.0) % MCV (80-100) fL MCH (27.0-34.0) pg MCHC (33.0-35.0) g/dL Plt Count (150-450) 10^3/uL Neut % (Auto) (42.2-75.2) % Lymph % (Auto) (20.5-50.1) % [place] % (Auto) (2-8) % Eos % (Auto) (1.0-3.0) % Baso % (Auto) (0.0-1.0) % Sodium (135-145) mmol/L Potassium (3.6-5.0) mmol/L Chloride (101-111) mmol/L Carbon Dioxide (21.0-31.0) mmol/L Anion Gap BUN (7-18) mg/dL Creatinine (0.6-1.3) mg/dL Est Cr Clr Drug Dosing mL/min Estimated GFR (MDRD) BUN/Creatinine Ratio Glucose (74-105) mg/dL Lactic Acid (0.5-2.2) mmol/L Calcium (8.4-10.2) mg/dl Magnesium (1.8-2.5) mg/dL Total Bilirubin (0.2-1.0) mg/dL AST (10-42) IU/L ALT (10-60) IU/L Alkaline Phosphatase (42-121) IU/L Troponin I (0.00-0.02) ng/ml B-Natriuretic Peptide 1170 H (0-100) pg/ml Total Protein (6.7-8.2) g/dl Albumin (3.2-5.5) g/dl Globulin Albumin/Globulin Ratio Urine Color Yellow (YELLOW) Urine Appearance Clear (CLEAR) Urine pH 7.0 (5.0-9.0) Ur Specific [place] 1.025 (1.005-1.030) Urine Protein >=300 H (NEGATIVE) Urine Glucose (UA) 250 H (NEGATIVE) Urine Ketones Negative (NEGATIVE) Urine Occult Blood Moderate H (NEGATIVE) Urine Nitrite Negative (NEGATIVE) Urine Bilirubin Negative (NEGATIVE) Urine Urobilinogen 0.2 (0.2-1.0) mg/dL Ur Leukocyte Esterase Negative (NEGATIVE) Urine RBC 0-5 /HPF Urine WBC 0-5 (0-5/HPF) /HPF Ur Epithelial Cells Few /HPF Urine Bacteria Few (0-FEW/HPF) /HPF Ketones Result Diagrams: 03/16/18 21:00 03/16/18 21:00 EKG INTERPRETATION EKG Date: 03/16/18 Rhythm: NSR - Problem List (1) Acute renal failure SNOMED Code(s): 29573366 ICD Code: N17.9 - ACUTE KIDNEY FAILURE, UNSPECIFIED Status: Acute Current Visit: No Qualifiers: Acute renal failure type: unspecified Qualified Code(s): N17.9 - Acute kidney failure, unspecified (2) Diabetes SNOMED Code(s): 54199218 ICD Code: E11.9 - TYPE 2 DIABETES MELLITUS WITHOUT COMPLICATIONS Status: Acute Current Visit: No Qualifiers: Diabetes mellitus type: type 2 Diabetes mellitus fci insulin use: with fci use Diabetes mellitus complication status: with unspecified complications Qualified Code(s): E11.8 - Type 2 diabetes mellitus with unspecified complications; Z79.4 - terminal computer operator (current) use of insulin; Z79.4 - MCC (current) use of insulin; Z79.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 DIRECTED Care 03/16/18 23:13 Ordered Up With Assistance [RC] ASDIRECTED Care 03/16/18 23:12 Ordered VTE/DVT Education [RC] PER UNIT ROUTINE Care 03/16/18 23:12 Ordered Vital Signs [RC] Q4H Care 03/16/18 23:12 Ordered 2 Gram Sodium Diet [DIET] Diet 03/16/18 Breakfast Ordered Abdomen Ltd [US] Routine Exams 03/17/18 08:00 Ordered BASIC METABOLIC PANEL,BMP [CHEM] AM Lab 03/17/18 05:15 Ordered CBC WITH AUTO DIFF [HEME] AM Lab 03/17/18 05:15 Ordered CULTURE BLOOD [BC] Stat Lab 03/16/18 21:00 Received CULTURE BLOOD [BC] Stat Lab 03/16/18 21:05 Received INFLUENZA A+B AG SCREEN [RM] Stat Lab 03/16/18 23:14 Ordered UA W/MICROSCOPIC [URIN] Stat Lab 03/16/18 21:13 Ordered Furosemide [Lasix] Med 03/16/18 23:15 Ordered 40 mg IVPUSH BID Heparin Sodium Med 03/17/18 06:00 Ordered 5,000 units SUBCUT Q8HR Insulin Aspart [NovoLOG] Med 03/17/18 08:00 Ordered See Protocol SUBCUT TIDAC Nicotine [Habitrol] Med 03/16/18 23:15 Ordered 14 mg TRDERM DAILY Sodium Chloride 0.9% [Saline Flush] Med 03/16/18 23:12 Ordered 10 ml FLUSH ASDIRECTED PRN Zolpidem [Ambien] Med 03/16/18 23:12 Ordered 5 mg PO BEDTIME PRN oxyCODONE Med 03/16/18 23:08 Ordered 5 mg PO Q6H PRN Antiembolic Hose [OM.PC] Per Unit Routine Oth 03/16/18 23:13 Ordered Blood Culture x2 Reflex Set [OM.PC] Stat Oth 03/16/18 20:33 Ordered Peripheral IV Insertion Adult [OM.PC] Routine Oth 03/16/18 23:12 Ordered Saline Lock Insert [OM.PC] Routine Oth 03/16/18 23:12 Ordered Resuscitation Status Routine Resus Stat 03/16/18 23:12 Ordered Medication Orders Furosemide (Lasix) 40 mg IVPUSH BID NITIN Heparin Sodium (Porcine) (Heparin Sodium) 5,000 units SUBCUT Q8HR NITIN Insulin Aspart (Novolog) 0 unit SUBCUT TIDAC NITIN; Protocol Nicotine (Habitrol) 14 mg TRDERM DAILY NITIN Oxycodone HCl (Oxycodone) 5 mg PO Q6H PRN PRN Reason: Pain Sodium Chloride (Saline Flush) 10 ml FLUSH ASDIRECTED PRN PRN Reason: Keep Vein Open Zolpidem Tartrate (Ambien) 5 mg PO BEDTIME PRN PRN Reason: Sleep Assessment/Plan Comment:: The patient is a 37-year-old gentleman with a history of diabetes, hypertension , chronic pain. He says he has been off medications for about a month. Except his oxycodone. He was not taking JOSE R inhibitor, not taking other pain medications other than oxycodone, not using insulin. The patient presented with bilateral lower extremity swelling. The swelling started about 5 days prior to presentation. This has been worsening. Associated with shortness of breath with activity. No chest pain. No fever. No urinary burning #1 acute renal failure with significant fluid overload Well start the patient on Lasix Follow electrolytes The patient has been off ibuprofen, lisinopril. Well hold these further. Well check renal ultrasound #2 hypertension The patient used to be on Norvasc and lisinopril but he says he was not taking them. We will monitor the blood pressure with the diuretics. #3 diabetes Can the patient is off medications for about a month. Per old records he was on Levemir and mealtime NovoLog combination. For now follow blood sugars use supplemental insulin. If blood sugars are consistently elevated well start Levemir. #4 chronic pain His chronic continuous narcotic use The patient is complaining of pain at the amputation site of the left leg. Amputation was about a year ago and the wound has healed. There is no redness there. Try to minimize narcotic use. Hold gabapentin with the renal failure #5 might elevated troponin is likely due to acute renal failure #6 DVT prophylaxis with subcutaneous heparin
[2018-03-16] MEDS: Nicotine 14 MG/24 Hr Patch TRDERM SCH (23:30)
[2018-03-16] MEDS: oxyCODONE 5 MG Tab PO PRN (23:53)
[2018-03-17] MEDS: Zolpidem 5 MG Tab PO PRN
[2018-03-17] MEDS: Furosemide 40 MG/4 ML VIAL IVPUSH SCH ×3 (00:08→20:51)
[2018-03-17] MEDS: Heparin Sodium 5,000 Units/ML Vial SUBCUT SCH ×3 (05:56→21:36)
[2018-03-17] MEDS: oxyCODONE 5 MG Tab PO PRN ×3 (06:01→18:33)
[2018-03-17] MEDS: Insulin Aspart 100 Units/ML 3 ML Pen SUBCUT SCH ×3 (08:29→17:00)
[2018-03-17] MEDS: Nicotine 14 MG/24 Hr Patch TRDERM SCH (08:58)
--- NOTE | 2018-03-17 09:23 | US ---
CLINICAL HISTORY: 37-year-old 249 pound hypertensive, diabetic male with "acute renal failure". Rule out obstructive uropathy. INTERPRETATION: Normal reniform size, axis and configuration bilaterally with uniformly thick renal c ortical "mantle" both kidneys. Right kidney measures 11.9 cm L x 5.06 cm W x 5.5 cm AP diameter. Left kidney measures 12.9 cm L x 6.5 cm W x 4.8 cm AP diameter. No sign of hypoechoic cystic or echogenic solid renal cortical mass lesion, nephrolithiasis or obstru ctive uropathy (pyelocaliectasis). Full urinary bladder volume 327 ml. No mucosal wall mass or mobile dependent intraluminal echogenic " shadowing" bladder stones. Normal ureteral "jets" identified bilaterally. Small 40 ml "postvoid" urin bhupinder bladder residual volume.
--- NOTE | 2018-03-17 11:36 | PCM.PN ---
- General Info Date of Service: 03/17/18 Admission Dx/Problem (Free Text): Admission Diagnosis/Problem Admission Diagnosis/Problem Acute renal failure Subjective Update: Continues to have a cough. Had no associated fever. Complains of yellow sputum. Continues to have lower extremity swelling. Has been urinating well. Has a relatively new right upper extremity tattoo that is somewhat itching but there is no significant redness around it. No abdominal pain, urinating well, - Review of Systems General: Denies: Fever, Weakness Pulmonary: Denies: Shortness of Breath Cardiovascular: Denies: Chest Pain Gastrointestinal: Denies: Abdominal Pain Musculoskeletal: Reports: Foot Pain Neurological: Denies: Confusion - Patient Data Vitals - Most Recent: Last Vital Signs Temp 36.8 C 03/17/18 10:57 Pulse 96 03/17/18 10:57 Resp 20 03/17/18 10:57 BP 157/94 H 03/17/18 10:57 Pulse Ox 97 03/17/18 10:57 Weight - Most Recent: 111.584 kg I&O - Last 24 Hours: Intake & Output 03/16/18 03/17/18 03/17/18 22:59 06:59 14:59 Intake Total 1240 Output Total 1325 600 Balance -1325 640 Lab Results Last 24 Hours: Laboratory Results - last 24 hr 03/16/18 03/16/18 03/16/18 Range/Units 21:00 21:00 21:00 WBC 9.3 (5.0-10.0) 10^3/uL RBC 3.95 L (4.6-6.2) 10^6/uL Hgb 11.2 L D (14.0-18.0) g/dL Hct 35.4 L (40.0-54.0) % MCV 89.6 D (80-100) fL MCH 28.4 (27.0-34.0) pg MCHC 31.6 L (33.0-35.0) g/dL Plt Count 332 (150-450) 10^3/uL Neut % (Auto) 68.4 (42.2-75.2) % Lymph % (Auto) 15.3 L (20.5-50.1) % [place] % (Auto) 9.3 H (2-8) % Eos % (Auto) 6.6 H (1.0-3.0) % Baso % (Auto) 0.4 (0.0-1.0) % Sodium 136 (135-145) mmol/L Potassium 4.7 (3.6-5.0) mmol/L Chloride 112 H (101-111) mmol/L Carbon Dioxide 21.0 (21.0-31.0) mmol/L Anion Gap 7.7 BUN 27 H (7-18) mg/dL Creatinine 2.3 H (0.6-1.3) mg/dL Est Cr Clr Drug Dosing 71.89 mL/min Estimated GFR (MDRD) 33 BUN/Creatinine Ratio 11.73 Glucose 123 H (74-105) mg/dL POC Glucose (70-105) mg/dl Lactic Acid 0.7 (0.5-2.2) mmol/L Calcium 7.4 L (8.4-10.2) mg/dl Magnesium 1.7 L (1.8-2.5) mg/dL Total Bilirubin 0.3 (0.2-1.0) mg/dL AST 48 H (10-42) IU/L ALT 40 (10-60) IU/L Alkaline Phosphatase 83 (42-121) IU/L Troponin I 0.04 H* (0.00-0.02) ng/ml B-Natriuretic Peptide (0-100) pg/ml Total Protein 5.2 L (6.7-8.2) g/dl Albumin 1.5 L (3.2-5.5) g/dl Globulin 3.7 Albumin/Globulin Ratio 0.41 Urine Color (YELLOW) Urine Appearance (CLEAR) Urine pH (5.0-9.0) Ur Specific [place] (1.005-1.030) Urine Protein (NEGATIVE) Urine Glucose (UA) (NEGATIVE) Urine Ketones (NEGATIVE) Urine Occult Blood (NEGATIVE) Urine Nitrite (NEGATIVE) Urine Bilirubin (NEGATIVE) Urine Urobilinogen (0.2-1.0) mg/dL Ur Leukocyte Esterase (NEGATIVE) Urine RBC /HPF Urine WBC (0-5/HPF) /HPF Ur Epithelial Cells /HPF Urine Bacteria (0-FEW/HPF) /HPF Ketones Negative 03/16/18 03/16/18 03/17/18 Range/Units 21:00 21:13 06:13 WBC 12.5 H (5.0-10.0) 10^3/uL RBC 4.12 L (4.6-6.2) 10^6/uL Hgb 11.7 L (14.0-18.0) g/dL Hct 37.3 L (40.0-54.0) % MCV 90.5 (80-100) fL MCH 28.4 (27.0-34.0) pg MCHC 31.4 L (33.0-35.0) g/dL Plt Count 333 (150-450) 10^3/uL Neut % (Auto) 73.6 (42.2-75.2) % Lymph % (Auto) 11.9 L (20.5-50.1) % [place] % (Auto) 8.4 H (2-8) % Eos % (Auto) 5.9 H (1.0-3.0) % Baso % (Auto) 0.2 (0.0-1.0) % Sodium (135-145) mmol/L Potassium (3.6-5.0) mmol/L Chloride (101-111) mmol/L Carbon Dioxide (21.0-31.0) mmol/L Anion Gap BUN (7-18) mg/dL Creatinine (0.6-1.3) mg/dL Est Cr Clr Drug Dosing mL/min Estimated GFR (MDRD) BUN/Creatinine Ratio Glucose (74-105) mg/dL POC Glucose (70-105) mg/dl Lactic Acid (0.5-2.2) mmol/L Calcium (8.4-10.2) mg/dl Magnesium (1.8-2.5) mg/dL Total Bilirubin (0.2-1.0) mg/dL AST (10-42) IU/L ALT (10-60) IU/L Alkaline Phosphatase (42-121) IU/L Troponin I (0.00-0.02) ng/ml B-Natriuretic Peptide 1170 H (0-100) pg/ml Total Protein (6.7-8.2) g/dl Albumin (3.2-5.5) g/dl Globulin Albumin/Globulin Ratio Urine Color Yellow (YELLOW) Urine Appearance Clear (CLEAR) Urine pH 7.0 (5.0-9.0) Ur Specific [place] 1.025 (1.005-1.030) Urine Protein >=300 H (NEGATIVE) Urine Glucose (UA) 250 H (NEGATIVE) Urine Ketones Negative (NEGATIVE) Urine Occult Blood Moderate H (NEGATIVE) Urine Nitrite Negative (NEGATIVE) Urine Bilirubin Negative (NEGATIVE) Urine Urobilinogen 0.2 (0.2-1.0) mg/dL Ur Leukocyte Esterase Negative (NEGATIVE) Urine RBC 0-5 /HPF Urine WBC 0-5 (0-5/HPF) /HPF Ur Epithelial Cells Few /HPF Urine Bacteria Few (0-FEW/HPF) /HPF Ketones 03/17/18 03/17/18 03/17/18 Range/Units 06:13 08:05 11:08 WBC (5.0-10.0) 10^3/uL RBC (4.6-6.2) 10^6/uL Hgb (14.0-18.0) g/dL Hct (40.0-54.0) % MCV (80-100) fL MCH (27.0-34.0) pg MCHC (33.0-35.0) g/dL Plt Count (150-450) 10^3/uL Neut % (Auto) (42.2-75.2) % Lymph % (Auto) (20.5-50.1) % [place] % (Auto) (2-8) % Eos % (Auto) (1.0-3.0) % Baso % (Auto) (0.0-1.0) % Sodium 138 (135-145) mmol/L Potassium 4.5 (3.6-5.0) mmol/L Chloride 113 H (101-111) mmol/L Carbon Dioxide 20.0 L (21.0-31.0) mmol/L Anion Gap 9.5 BUN 26 H (7-18) mg/dL Creatinine 2.1 H (0.6-1.3) mg/dL Est Cr Clr Drug Dosing 77.49 mL/min Estimated GFR (MDRD) 36 BUN/Creatinine Ratio Glucose 119 H (74-105) mg/dL POC Glucose 108 H 133 H (70-105) mg/dl Lactic Acid (0.5-2.2) mmol/L Calcium 7.9 L (8.4-10.2) mg/dl Magnesium (1.8-2.5) mg/dL Total Bilirubin (0.2-1.0) mg/dL AST (10-42) IU/L ALT (10-60) IU/L Alkaline Phosphatase (42-121) IU/L Troponin I (0.00-0.02) ng/ml B-Natriuretic Peptide (0-100) pg/ml Total Protein (6.7-8.2) g/dl Albumin (3.2-5.5) g/dl Globulin Albumin/Globulin Ratio Urine Color (YELLOW) Urine Appearance (CLEAR) Urine pH (5.0-9.0) Ur Specific [place] (1.005-1.030) Urine Protein (NEGATIVE) Urine Glucose (UA) (NEGATIVE) Urine Ketones (NEGATIVE) Urine Occult Blood (NEGATIVE) Urine Nitrite (NEGATIVE) Urine Bilirubin (NEGATIVE) Urine Urobilinogen (0.2-1.0) mg/dL Ur Leukocyte Esterase (NEGATIVE) Urine RBC /HPF Urine WBC (0-5/HPF) /HPF Ur Epithelial Cells /HPF Urine Bacteria (0-FEW/HPF) /HPF Ketones Charanjit Results Last 24 Hours: Microbiology 03/16/18 22:27 Influenza Type A Antigen Screen - Final Nasal, Left NEGATIVE INFLUENZA A VIRUS AG Influenza Type B Antigen Screen - Final NEGATIVE INFLUENZA B VIRUS AG Med Orders - Current: Current Medications Furosemide (Lasix) 40 mg IVPUSH BID [facility] Last Admin: 03/17/18 08:59 Dose: 40 mg Heparin Sodium (Porcine) (Heparin Sodium) 5,000 units SUBCUT Q8HR [facility] Last Admin: 03/17/18 05:56 Dose: 5,000 units Ceftriaxone Sodium 1,000 mg/ (Sodium Chloride) 100 mls @ 200 mls/hr IV Q24H [facility] Azithromycin 500 mg/ Sodium (Chloride) 250 mls @ 250 mls/hr IV Q24H [facility] Insulin Aspart (Novolog) 0 unit SUBCUT TIDAC [facility]; Protocol Last Admin: 03/17/18 08:29 Dose: Not Given Nicotine (Habitrol) 14 mg TRDERM DAILY [facility] Last Admin: 03/17/18 08:58 Dose: Not Given Oxycodone HCl (Oxycodone) 5 mg PO Q6H PRN PRN Reason: Pain Last Admin: 03/17/18 06:01 Dose: 5 mg Sodium Chloride (Saline Flush) 10 ml FLUSH ASDIRECTED PRN PRN Reason: Keep Vein Open Zolpidem Tartrate (Ambien) 5 mg PO BEDTIME PRN PRN Reason: Sleep Last Admin: 03/17/18 00:00 Dose: 5 mg - Exam General: Alert, Oriented Neck: Supple Lungs: Clear to Auscultation, Normal Respiratory Effort Cardiovascular: Regular Rate, Regular Rhythm GI/Abdominal Exam: Normal Bowel Sounds, Soft, Non-Tender Extremities: Pedal Edema (Up to thigh) Skin: Warm, Dry Neurological: No New Focal Deficit - Problem List & Annotations (1) Acute renal failure SNOMED Code(s): 27409757 Code(s): N17.9 - ACUTE KIDNEY FAILURE, UNSPECIFIED Status: Acute Current Visit: No Qualifiers: Acute renal failure type: unspecified Qualified Code(s): N17.9 - Acute kidney failure, unspecified (2) Diabetes SNOMED Code(s): 41787630 Code(s): E11.9 - TYPE 2 DIABETES MELLITUS WITHOUT COMPLICATIONS Status: Acute Current Visit: No Qualifiers: Diabetes mellitus type: type 2 Diabetes mellitus long term care administrator insulin use: with halfway use Diabetes mellitus complication status: with unspecified complications Qualified Code(s): E11.8 - Type 2 diabetes mellitus with unspecified complications; Z79.4 - exterminator helper termite (current) use of insulin; Z79.4 - exterminator helper termite (current) use of insulin; Z79.4 - longterm (current) use of insulin; Z79.4 - exterminator helper termite (current) use of insulin - Problem List Review Problem List Initiated/Reviewed/Updated: Yes - My Orders Last 24 Hours: My Active Orders 03/16/18 23:08 oxyCODONE 5 mg PO Q6H PRN 03/16/18 23:09 Glucose [Blood Glucose Check, Bedside] [RC] QIDACANDBED 03/16/18 23:12 Patient Status [ADT] Routine Oxygen Therapy [RC] PRN Up With Assistance [RC] ASDIRECTED VTE/DVT Education [RC] 09 Vital Signs [RC] Q4H Sodium Chloride 0.9% [Saline Flush] 10 ml FLUSH ASDIRECTED PRN Zolpidem [Ambien] 5 mg PO BEDTIME PRN Peripheral IV Insertion Adult [OM.PC] Routine Saline Lock Insert [OM.PC] Routine Resuscitation Status Routine 03/16/18 23:13 Peripheral IV Care [RC] 08,20 Antiembolic Hose [OM.PC] Per Unit Routine 03/16/18 23:15 Furosemide [Lasix] 40 mg IVPUSH BID Nicotine [Habitrol] 14 mg TRDERM DAILY 03/17/18 06:00 Heparin Sodium 5,000 units SUBCUT Q8HR 03/17/18 08:00 Insulin Aspart [NovoLOG] See Protocol SUBCUT TIDAC 03/17/18 11:30 cefTRIAXone [Rocephin] 1,000 mg Sodium Chloride 0.9% [Normal Saline] 100 ml IV Q24H 03/17/18 11:45 Azithromycin [Zithromax] 500 mg Sodium Chloride 0.9% [Normal Saline] 250 ml IV Q24H 03/18/18 05:15 BASIC METABOLIC PANEL,BMP [CHEM] AM CBC WITH AUTO DIFF [HEME] AM - Plan Plan:: The patient is a 37-year-old gentleman with a history of diabetes, hypertension , chronic pain. He says he has been off medications for about a month. Except his oxycodone. He was not taking JOSE R inhibitor, not taking other pain medications other than oxycodone, not using insulin. The patient presented with bilateral lower extremity swelling. The swelling started about 5 days prior to presentation. This has been worsening. Associated with shortness of breath with activity. No chest pain. No fever.No urinary burning Did have cough, chills. #1 acute renal failure with significant fluid overload Some improvement in renal function since yesterday Started the patient on Lasix Follow electrolytes The patient has been off ibuprofen, lisinopril. Well hold these further. renal ultrasound showed no urinary retention, obstruction. #2 hypertension The patient used to be on Norvasc and lisinopril but he says he was not taking them. We will monitor the blood pressure with the diuretics. #3 diabetes Can the patient is off medications for about a month. Per old records he was on Levemir and mealtime NovoLog combination. For now follow blood sugars use supplemental insulin. If blood sugars are consistently elevated well start Levemir. #4 chronic pain His chronic continuous narcotic use The patient is complaining of pain at the amputation site of the left leg. Amputation was about a year ago and the wound has healed. There is no redness there. Try to minimize narcotic use. Hold gabapentin with the renal failure #5 complains of chills, cough, sputum Leukocytosis noted Chest x-ray showed no infiltrate Start empirically azithromycin and Rocephin #6 slight elevated troponin is likely due to acute renal failure #7 DVT prophylaxis with subcutaneous heparin
[2018-03-17] MEDS: cefTRIAXone 1 GM Vial IVPUSH SCH (12:08)
[2018-03-17] MEDS: Sodium Chloride 0.9% 10 ML Syringe FLUSH PRN ×2 (12:08→13:52)
--- NOTE | 2018-03-17 13:24 | EKG ---
03/16/2018- SHELDON ORTEGA - FINDINGS: EKG, per my reading, shows sinus rhythm at the rate of 84. [facility] /[id number]
[2018-03-17] MEDS: Azithromycin 500 MG in Sodium Chloride 0.9% 250 ML IV SCH (13:51)
[2018-03-17] MEDS: Benzonatate 100 MG Cap PO PRN (19:43)
[2018-03-17] MEDS: guaiFENesin 100 MG/5 ML Soln 5 ML UD Cup PO PRN (19:43)
[2018-03-18] MEDS: oxyCODONE 5 MG Tab PO PRN ×4 (00:11→21:07)
[2018-03-18] MEDS: Zolpidem 5 MG Tab PO PRN ×2 (00:11→22:44)
[2018-03-18] MEDS: Heparin Sodium 5,000 Units/ML Vial SUBCUT SCH ×3 (05:27→21:12)
[2018-03-18] MEDS: Benzonatate 100 MG Cap PO PRN ×3 (05:31→21:07)
[2018-03-18] MEDS: guaiFENesin 100 MG/5 ML Soln 5 ML UD Cup PO PRN ×3 (05:31→21:08)
[2018-03-18] MEDS: Insulin Aspart 100 Units/ML 3 ML Pen SUBCUT SCH ×3 (08:05→16:58)
[2018-03-18] MEDS: Nicotine 14 MG/24 Hr Patch TRDERM SCH (08:41)
[2018-03-18] MEDS: Furosemide 40 MG/4 ML VIAL IVPUSH SCH ×2 (08:41→20:29)
--- NOTE | 2018-03-18 11:14 | PCM.PN ---
- General Info Date of Service: 03/18/18 Admission Dx/Problem (Free Text): Admission Diagnosis/Problem Admission Diagnosis/Problem Acute renal failure Subjective Update: Patient still has significant bilateral lower extremity edema. Denies feeling short of breath. Denies significant cough. He is weak - Review of Systems General: Reports: Weakness, Fatigue Pulmonary: Reports: No Symptoms Gastrointestinal: Reports: No Symptoms Genitourinary: Reports: No Symptoms Musculoskeletal: Reports: Other Psychiatric: Reports: No Symptoms - Patient Data Vitals - Most Recent: Last Vital Signs Temp 36.6 C 03/18/18 10:54 Pulse 82 03/18/18 10:54 Resp 20 03/18/18 10:54 BP 159/93 H 03/18/18 10:54 Pulse Ox 100 03/18/18 10:54 Weight - Most Recent: 111.584 kg I&O - Last 24 Hours: Intake & Output 03/17/18 03/18/18 03/18/18 22:59 06:59 14:59 Intake Total 1360 475 120 Output Total 550 Balance 810 475 120 Lab Results Last 24 Hours: Laboratory Results - last 24 hr 03/17/18 03/17/18 03/17/18 Range/Units 11:08 16:47 21:02 WBC (5.0-10.0) 10^3/uL RBC (4.6-6.2) 10^6/uL Hgb (14.0-18.0) g/dL Hct (40.0-54.0) % MCV (80-100) fL MCH (27.0-34.0) pg MCHC (33.0-35.0) g/dL Plt Count (150-450) 10^3/uL Neut % (Auto) (42.2-75.2) % Lymph % (Auto) (20.5-50.1) % [place] % (Auto) (2-8) % Eos % (Auto) (1.0-3.0) % Baso % (Auto) (0.0-1.0) % Sodium (135-145) mmol/L Potassium (3.6-5.0) mmol/L Chloride (101-111) mmol/L Carbon Dioxide (21.0-31.0) mmol/L Anion Gap BUN (7-18) mg/dL Creatinine (0.6-1.3) mg/dL Est Cr Clr Drug Dosing mL/min Estimated GFR (MDRD) Glucose (74-105) mg/dL POC Glucose 133 H 121 H 134 H (70-105) mg/dl Calcium (8.4-10.2) mg/dl 03/18/18 03/18/18 03/18/18 Range/Units 06:20 06:20 07:53 WBC 11.7 H (5.0-10.0) 10^3/uL RBC 4.07 L (4.6-6.2) 10^6/uL Hgb 11.7 L (14.0-18.0) g/dL Hct 36.7 L (40.0-54.0) % MCV 90.2 (80-100) fL MCH 28.7 (27.0-34.0) pg MCHC 31.9 L (33.0-35.0) g/dL Plt Count 313 (150-450) 10^3/uL Neut % (Auto) 82.2 H (42.2-75.2) % Lymph % (Auto) 5.8 L (20.5-50.1) % [place] % (Auto) 6.6 (2-8) % Eos % (Auto) 5.2 H (1.0-3.0) % Baso % (Auto) 0.2 (0.0-1.0) % Sodium 136 (135-145) mmol/L Potassium 4.2 (3.6-5.0) mmol/L Chloride 110 (101-111) mmol/L Carbon Dioxide 20.0 L (21.0-31.0) mmol/L Anion Gap 10.2 BUN 23 H (7-18) mg/dL Creatinine 1.9 H (0.6-1.3) mg/dL Est Cr Clr Drug Dosing 85.65 mL/min Estimated GFR (MDRD) 41 Glucose 105 (74-105) mg/dL POC Glucose 108 H (70-105) mg/dl Calcium 8.0 L (8.4-10.2) mg/dl Charanjit Results Last 24 Hours: Microbiology 03/16/18 21:05 Aerobic Blood Culture - Preliminary Blood - Venous - Lab Draw NO GROWTH AFTER 1 DAY Anaerobic Blood Culture - Preliminary NO GROWTH AFTER 1 DAY 03/16/18 21:00 Aerobic Blood Culture - Preliminary Blood - Venous NO GROWTH AFTER 1 DAY Anaerobic Blood Culture - Preliminary NO GROWTH AFTER 1 DAY Med Orders - Current: Current Medications Benzonatate (Tessalon Perles) 100 mg PO Q6HR PRN PRN Reason: Cough Last Admin: 03/18/18 05:31 Dose: 100 mg Ceftriaxone Sodium (Rocephin) 1 gm IVPUSH Q24H [facility] Last Admin: 03/17/18 12:08 Dose: 1 gm Furosemide (Lasix) 40 mg IVPUSH BID [facility] Last Admin: 03/18/18 08:41 Dose: 40 mg Guaifenesin (Robitussin) 200 mg PO Q6H PRN PRN Reason: Cough Last Admin: 03/18/18 05:31 Dose: 200 mg Heparin Sodium (Porcine) (Heparin Sodium) 5,000 units SUBCUT Q8HR [facility] Last Admin: 03/18/18 05:27 Dose: 5,000 units Azithromycin 500 mg/ Sodium (Chloride) 250 mls @ 250 mls/hr IV Q24H [facility] Last Infusion: 03/17/18 15:30 Dose: Infused Insulin Aspart (Novolog) 0 unit SUBCUT TIDAC [facility]; Protocol Last Admin: 03/18/18 08:05 Dose: Not Given Nicotine (Habitrol) 14 mg TRDERM DAILY [facility] Last Admin: 03/18/18 08:41 Dose: Not Given Oxycodone HCl (Oxycodone) 5 mg PO Q6H PRN PRN Reason: Pain Last Admin: 03/18/18 08:41 Dose: 5 mg Sodium Chloride (Saline Flush) 10 ml FLUSH ASDIRECTED PRN PRN Reason: Keep Vein Open Last Admin: 03/17/18 13:52 Dose: 10 ml Zolpidem Tartrate (Ambien) 5 mg PO BEDTIME PRN PRN Reason: Sleep Last Admin: 03/18/18 00:11 Dose: 5 mg - Exam General: Alert, Oriented, Cooperative Neck: Supple Lungs: Clear to Auscultation Cardiovascular: Regular Rate, Regular Rhythm Extremities: Pedal Edema - Problem List Review Problem List Initiated/Reviewed/Updated: Yes - Plan Plan:: The patient is a 37-year-old gentleman with a history of diabetes, hypertension , chronic pain. He says he has been off medications for about a month. Except his oxycodone. He was not taking JOSE R inhibitor, not taking other pain medications other than oxycodone, not using insulin. The patient presented with bilateral lower extremity swelling. The swelling started about 5 days prior to presentation. This has been worsening. Associated with shortness of breath with activity. No chest pain. No fever.No urinary burning Did have cough, chills. #1 acute renal failure with significant fluid overload The patient appears to have nephrotic syndrome. He has significant proteinuria and his albumin is only 1.5 This is likely because of diabetes mellitus resulting in chronic renal failure. He could have an acute component also #2 hypertension The patient used to be on Norvasc and lisinopril but he says he was not taking them. We will monitor the blood pressure with the diuretics. #3 diabetes Can the patient is off medications for about a month. Per old records he was on Levemir and mealtime NovoLog combination. For now follow blood sugars use supplemental insulin. If blood sugars are consistently elevated well start Levemir. #4 chronic pain His chronic continuous narcotic use The patient is complaining of pain at the amputation site of the left leg. Amputation was about a year ago and the wound has healed. There is no redness there. Try to minimize narcotic use. Hold gabapentin with the renal failure #5 complains of chills, cough, sputum Leukocytosis noted Chest x-ray showed no infiltrate Start empirically azithromycin and Rocephin #6 slight elevated troponin is likely due to acute renal failure Plan: Send sample for basic metabolic panel Continue diuretics Send sample for liver function tests Monitor blood sugar before meals and at bedtime
[2018-03-18] MEDS: cefTRIAXone 1 GM Vial IVPUSH SCH (13:16)
[2018-03-18] MEDS: Azithromycin 500 MG in Sodium Chloride 0.9% 250 ML IV SCH (13:16)
[2018-03-18] MEDS ORDERED: hydrALAZINE 20 MG/ML SDV IVPUSH PRN (20:09)
[2018-03-18] MEDS: Sodium Chloride 0.9% 10 ML Syringe FLUSH PRN (20:28)
[2018-03-19] MEDS: oxyCODONE 5 MG Tab PO PRN ×3 (05:11→18:53)
[2018-03-19] MEDS: Heparin Sodium 5,000 Units/ML Vial SUBCUT SCH ×3 (05:13→22:13)
[2018-03-19] MEDS: Furosemide 40 MG/4 ML VIAL IVPUSH SCH (10:33)
[2018-03-19] MEDS: Insulin Aspart 100 Units/ML 3 ML Pen SUBCUT SCH ×3 (10:36→17:25)
[2018-03-19] MEDS: Nicotine 14 MG/24 Hr Patch TRDERM SCH ×2 (10:36→10:51)
[2018-03-19] MEDS: Sodium Chloride 0.9% 10 ML Syringe FLUSH PRN ×3 (12:37→21:25)
[2018-03-19] MEDS: cefTRIAXone 1 GM Vial IVPUSH SCH (12:38)
--- NOTE | 2018-03-19 12:47 | PN ---
DATE: 03/19/2018 SUBJECTIVE: Mr. Jose Cordero is a 37-year-old male with medical history significant for hypertension, hyperlipidemia, type 2 diabetes mellitus, was admitted to the hospital with complaints of generalized anasarca with acute renal failure. For the last 24 hours, the patient is continued on diuretics, and the patient's swelling seems to be improved. He denies any chest pain. No shortness of breath. No abdominal pain. No nausea. No vomiting. No diarrhea. REVIEW OF SYSTEMS: Cardiovascular, respiratory, gastrointestinal, neurology, constitutional were all evaluated. PHYSICAL EXAMINATION: Vital Signs: Temperature of 98.4, pulse of 86, blood pressure 153/101, respiratory rate of 20, and saturating at 99% on room air. General Appearance: The patient is well oriented to time, place, and person. Follows commands spontaneously. Cardiovascular System: S1 and S2 heard with normal intensity. No gallops. Respiratory System: Clear to auscultation bilaterally. No wheeze. No crepitations. Abdomen: Soft. Bowel sounds positive. Nontender. No rigidity. Extremities: No edema in the bilateral lower extremities. Neurology: No gross focal neurological deficit. Skin: No acute rash. MEDICATIONS: Reviewed. Continue with: 1. Zithromax daily. 2. Tessalon Perles q.6 hours as needed for cough. 3. Ceftriaxone 1 g daily. 4. Lasix 40 mg IV twice a day. 5. Robitussin 200 mg q.6 hourly. 6. Heparin 5000 subcutaneous q.8 hourly. 7. Hydralazine as needed IV. 8. NovoLog supplemental scale. 9. Oxycodone 5 mg q.6 hourly. 10.Ambien 5 mg at bedtime. LABORATORY DATA: Reviewed. Sodium 135, potassium 4.1, chloride 108, bicarb 22, BUN 23, creatinine 1.9, glucose 93. Average glucose has been in the range of 93 to 145. ASSESSMENT: 1. Hypertension, uncontrolled. 2. Type 2 diabetes mellitus. 3. Acute renal failure. 4. Noncompliance with medical treatment. 5. Possible acute bronchitis versus early pneumonia. 6. Chronic pain syndrome. PLAN: 1. Hypertension, uncontrolled. The patient noted to have uncontrolled hypertension. The patient was on Norvasc in the past. He will resume the Norvasc at this time. Could not start him on JOSE R inhibitor secondary to ongoing acute renal failure. We will start him in the lower dose once he is more stable. We will closely follow. He has been on IV hydralazine as needed. Continue the same. We will need to further titrate up the medication to optimize his blood pressure. 2. Type 2 diabetes mellitus. We will get a hemoglobin A1c today. His blood sugars are within acceptable range. The patient would benefit from adding an oral hypoglycemic agent. Could not add metformin secondary to acute renal failure. We will closely follow. 3. Possible bronchitis versus early pneumonia. The patient has been on ceftriaxone and Zithromax. He remains afebrile for now. 4. Acute renal failure, seems to be improving. His creatinine was at 2.3 at the time of admission; this extended down to 1.9. Avoid nephrotoxic agents. Dose adjust medications for renal function. 5. Noncompliance. The patient was educated about the importance of being compliant with medications. I explained about the importance of following with physicians which he understands and verbalized the same. 6. We will get a CBC and a BMP in the a.m., and we will closely follow. [facility] /[id number]
[2018-03-19] MEDS: Furosemide 40 MG Tab PO SCH (14:09)
[2018-03-19] MEDS: Azithromycin 500 MG in Sodium Chloride 0.9% 250 ML IV SCH (14:27)
[2018-03-19] MEDS: guaiFENesin 100 MG/5 ML Soln 5 ML UD Cup PO PRN (14:41)
[2018-03-19] MEDS: Lisinopril 5 MG Tab PO SCH (16:51)
[2018-03-19] MEDS: amLODIPine 5 MG Tab PO SCH (16:52)
[2018-03-19] MEDS: Zolpidem 5 MG Tab PO PRN (22:14)
[2018-03-20] MEDS: oxyCODONE 5 MG Tab PO PRN ×3 (01:08→13:19)
[2018-03-20] MEDS: Heparin Sodium 5,000 Units/ML Vial SUBCUT SCH ×2 (06:16→13:20)
[2018-03-20] MEDS: Insulin Aspart 100 Units/ML 3 ML Pen SUBCUT SCH ×2 (07:46→12:01)
[2018-03-20] MEDS: Furosemide 40 MG Tab PO SCH ×2 (08:13→13:19)
[2018-03-20] MEDS: Lisinopril 5 MG Tab PO SCH (08:14)
[2018-03-20] MEDS: amLODIPine 5 MG Tab PO SCH (08:14)
[2018-03-20] MEDS: Nicotine 14 MG/24 Hr Patch TRDERM SCH (08:15)
[2018-03-20 08:26] VITALS: BP 129/75
[2018-03-20] MEDS ORDERED: Lisinopril 5 MG Tab PO SCH (09:00)
[2018-03-20] MEDS ORDERED: amLODIPine 5 MG Tab PO SCH (09:00)
[2018-03-20] MEDS: cefTRIAXone 1 GM Vial IVPUSH SCH (12:01)
[2018-03-20] MEDS: Azithromycin 500 MG in Sodium Chloride 0.9% 250 ML IV SCH (13:11)
--- NOTE | 2018-03-21 03:33 | DISCH ---
ADMITTING DIAGNOSES: 1. Acute on chronic renal failure with significant volume overload. 2. Hypertension, uncontrolled. 3. Diabetes mellitus. 4. Chronic pain syndrome on chronic opiate pain medications. DISCHARGE DIAGNOSES: 1. Acute on chronic renal failure, much improved from the time of admission. 2. Hypertension, uncontrolled. Added Norvasc and lisinopril and blood pressure much improved at the time of discharge. 3. Diabetes. His hemoglobin A1c on this admission is 5.5, so no need for any insulin treatment for now. Lifestyle modification needed. 4. Chronic tobacco use. He is currently on nicotine transdermal patch. HISTORY OF PRESENTING ILLNESS: Mr. Gil Leslie is a 37-year-old male with medical history significant for hypertension, type 2 diabetes mellitus, and chronic tobacco use, chronic opioid pain medication use, admitted to the hospital with acute on chronic renal failure. On admission, he was noted to have a creatinine of 2.3, which has improved to 1.9 at the time of discharge. He was also noted to have uncontrolled hypertension for which we added Norvasc and lisinopril after which his blood pressure is much improved. His potassium was within normal limits. We did a hemoglobin A1c and it resulted at 5.5. The patient was educated about lifestyle modification with daily exercise and diet control with less carbohydrate diet, which he understands and verbalized the same. He is advised to follow with primary care physician in the next 1 week of time and to follow with Nephrology Clinic in next 1 week for his chronic kidney disease. We did not prescribe any diabetic medications at this time as his sugars remained between 93 to 105 on this admission. Hopefully, he should be able to control his sugars with the lifestyle modification. He is discharged home in stable condition. DISCHARGE MEDICATIONS: Include: 1. Lasix 40 mg twice a day. 2. Lisinopril 5 mg daily. 3. Nicotine transdermal patch 14 mg daily. 4. Norvasc 5 mg daily. PHYSICAL EXAMINATION: Vital Signs: On the day of discharge vitals; temperature of 98, pulse of 80, blood pressure 129/75, respiratory rate 18, saturating 100% on room air. General Appearance: The patient is well oriented to time, place, and person. Follows commands spontaneously. Cardiovascular System: S1, S2 heard with normal intensity. No gallops. Respiratory System: Clear to auscultation bilaterally. No wheeze. No crepitations. Abdomen: Soft. Bowel sounds positive. Nontender. No rigidity. No guarding. No rebound tenderness. Extremities: Mild edema in bilateral lower extremities. Neurologic: No gross focal neurological deficit. CONDITION ON ADMISSION: Poor. CONDITION ON DISCHARGE: Stable. ACTIVITY: As tolerated. DIET: Cardiac healthy diet with consistent carbohydrate diet. FOLLOWUP: Follow up with primary care physician next 1 week of time and to follow with Nephrology Clinic in next 1 week. Spent over 35 minutes of time in evaluating and treating this patient and making discharge planning The patient is educated about tobacco cessation and strongly encouraged him to quit smoking which he understands some over the same. The patient also educated about lifestyle modification with exercise daily 5 days a week for at least half an hour and also consistent carbohydrate diet and low-salt diet, which he understands and verbalized the same. [facility] /[id number]
== END 2018-03-20 13:45 | disposition home or self-care (01) | DRG 682 ==
LOC: DL.ED 19:54 → UNDOADMIN 22:44 → DL.MS 22:44 → EEVIPCON 23:12 → DL.MS 23:12
PROVIDERS: ADMIT Internal Medicine; ATTEND Internal Medicine
DX: N17.9 Acute kidney failure, unspecified (principal); I10 Essential (primary) hypertension; J18.9 Pneumonia, unspecified organism; K52.9 Noninfective gastroenteritis and colitis, unspecified; K21.9 Gastro-esophageal reflux disease without esophagitis; B19.20 Unspecified viral hepatitis C without hepatic coma; E11.9 Type 2 diabetes mellitus without complications; F17.200 Nicotine dependence, unspecified, uncomplicated; E66.9 Obesity, unspecified; F81.9 Developmental disorder of scholastic skills, unspecified; R74.8 Abnormal levels of other serum enzymes; E87.70 Fluid overload, unspecified; G89.4 Chronic pain syndrome; E11.22 Type 2 diabetes mellitus with diabetic chronic kidney disease; I12.9 Hypertensive chronic kidney disease with stage 1 through stage 4 chronic kidney disease, or unspecified chronic kidney disease; N18.9 Chronic kidney disease, unspecified; R05 Cough; R68.83 Chills (without fever); M79.605 Pain in left leg; R53.81 Other malaise; R60.0 Localized edema; M79.604 Pain in right leg; E78.5 Hyperlipidemia, unspecified; J20.9 Acute bronchitis, unspecified; Z88.8 Allergy status to other drugs, medicaments and biological substances; Z91.14 Patient's other noncompliance with medication regimen; Z89.612 Acquired absence of left leg above knee; Z86.14 Personal history of Methicillin resistant Staphylococcus aureus infection; Z79.4 Long term (current) use of insulin; Z79.891 Long term (current) use of opiate analgesic; Z79.899 Other long term (current) drug therapy; Z28.21 Immunization not carried out because of patient refusal
CPT/HCPCS: 36415; 71046; 76705; 80048; 80053; 80076; 81001; 82009; 82962; 83036; 83605; 83735; 83880; 84484; 85025; 85027; 87040; 87804; 93005; 93010; 99285; A9270-GY; J0456; J0696; J1644; J1940; J7050

== ENCOUNTER 2019-08-27 06:50 | Emergency (ER) | payer MEDICARE, MEDICAID ==
[2019-08-27 06:45] VITALS: BP 194/100; PULSE 82
[2019-08-27] MEDS ORDERED: Ondansetron 4 MG/2 ML SDV IV ONE ×2 (07:06→08:09)
--- NOTE | 2019-08-27 07:06 | EDM.PDOC ---
ED HPI GENERAL MEDICAL PROBLEM - General Chief Complaint: Abdominal Pain Stated Complaint: AMBULANCE Time Seen by Provider: 08/27/19 07:00 Source of Information: Reports: Patient, Old Records, RN, RN Notes Reviewed History Limitations: Reports: Other (Hx of Developmental Delay) - History of Present Illness INITIAL COMMENTS - FREE TEXT/NARRATIVE: Pt arrives to ER by ambulance from home with c/o vomiting. Pt states he had a full run of dialysis in [place] yesterday, but began having nausea and vomiting during dialysis. Pt states he was instructed by the dialysis nurse to go directly to the ER there at [facility] in but he went home instead. He reports continued nausea and vomiting through the night, and associated epigastric burning and pain which also now hurts all the way up through his chest into his throat. Pt denies fevers, black/blood/tarry stools, shortness of breath, dizziness, lightheadedness, or syncope. He admits to chills. He is worried because he has not been able to take any of his medications since yesterday due to vomiting. Onset: Gradual Onset Date: 08/26/19 Duration: Constant Location: Reports: Chest, Abdomen Quality: Reports: Ache, Burning Severity: Severe Improves with: Reports: None Worsens with: Reports: Eating Associated Symptoms: Reports: No Other Symptoms - Related Data Allergies Allergy/AdvReac Type Severity Reaction Status Date / Time ibuprofen Allergy Mild Difficulty Verified 12/25/18 16:50 Breathing acetaminophen AdvReac Mild Liver Verified 08/27/19 06:47 Problems Home Meds: Home Meds Famotidine [Pepcid] 20 mg PO BID PRN 09/10/18 [History] Atenolol [Tenormin] 50 mg PO DAILY #90 tablet 09/13/18 [Rx] Furosemide [Lasix] 40 mg PO BID #90 tablet 09/13/18 [Rx] Insulin Detemir [Levemir] 25 unit SUBCUT BEDTIME #1 pen 09/13/18 [Rx] amLODIPine [Norvasc] 5 mg PO DAILY 30 Days #30 tablet 09/13/18 [Rx] Past Medical History - Past Health History Medical/Surgical History: Denies Medical/Surgical History HEENT History: Reports: None Cardiovascular History: Reports: Heart Failure, Hypertension Respiratory History: Reports: None Gastrointestinal History: Reports: GERD, Hepatitis, Other (See Below) Other Gastrointestinal History: HEP C Genitourinary History: Reports: Acute Renal Failure, Chronic Renal Insuffiency, Dialysis Musculoskeletal History: Reports: Other (See Below) Other Musculoskeletal History: many muscle surgeries; INJURY OF L SHOULDER Neurological History: Reports: Concussion, Head Trauma, Neuropathy, Diabetic Psychiatric History: Reports: Other (See Below) Other Psychiatric History: ALCOHOL & NICOTINE HABITUATION Endocrine/Metabolic History: Reports: Diabetes, Type I, Obesity/BMI 30+ Hematologic History: Reports: None Immunologic History: Reports: Other (See Below) Other Immunologic History: HX OF MRSA Oncologic (Cancer) History: Reports: None Dermatologic History: Reports: Cellulitis, Other (See Below) Other Dermatologic History: WOUND OF LEG REQUIRED DEBRIBEMENT; ABCESS ON BACK REQUIRED I & D; ABCESS RIGHT HAND - Infectious Disease History Infectious Disease History: Reports: Hepatitis C, MRSA Other Infectious Disease History: PATIENT HAS LEARNING DISABILITY, POOR HISTORIAN - Past Surgical History Head Surgeries/Procedures: Reports: None HEENT Surgical History: Reports: None Cardiovascular Surgical History: Reports: None Respiratory Surgical History: Reports: None GI Surgical History: Reports: EGD Male Surgical History: Reports: None Endocrine Surgical History: Reports: None Neurological Surgical History: Reports: None Musculoskeletal Surgical History: Reports: Other (See Below) Other Musculoskeletal Surgeries/Procedures:: left great toe amputation Oncologic Surgical History: Reports: None Social & Family History - Family History Family Medical History: Noncontributory - Tobacco Use Smoking Status *Q: Never Smoker - Caffeine Use Caffeine Use: Reports: Coffee - Alcohol Use Alcohol Use History: Yes Alcohol Use Frequency: Daily - Recreational Drug Use Recreational Drug Use: No - Living Situation & Occupation Living situation: Reports: with Family (Lives with his sister.) Occupation: Disabled ED ROS GENERAL - Review of Systems Review Of Systems: ROS reveals no pertinent complaints other than HPI. ED EXAM, GENERAL - Physical Exam Exam: See Below Exam Limited By: No Limitations General Appearance: Alert, No Apparent Distress, Anxious, Obese, Other ( Chronically ill appearing. Active emesis.) Eye Exam: Bilateral Eye: Normal Inspection Nose: Normal Inspection, No Blood Throat/Mouth: Normal Lips, Normal Voice, No Airway Compromise Head: Atraumatic, Normocephalic Neck: Normal Inspection, Supple, Non-Tender, Full Range of Motion Respiratory/Chest: No Respiratory Distress, Lungs Clear, Normal Breath Sounds, No Accessory Muscle Use, Chest Non-Tender Cardiovascular: Regular Rate, Rhythm, No Edema GI/Abdominal: Normal Bowel Sounds, Soft, No Distention, No Abnormal Bruit, Tender (at epigastric region). No: Guarding, Rigid, Rebound Back Exam: Normal Inspection Extremities: Normal Inspection, Other (AV fistula left forearm) Psychiatric: Anxious, Depressed Mood Skin Exam: Warm, Dry, Intact EKG INTERPRETATION EKG Date: 08/27/19 Time: 06:41 Rhythm: Other (SR) Rate (Beats/Min): 84 [place]: LAD-Left [place] Deviation P-Wave: Present QRS: Normal ST-T: Normal QT: Prolonged (borderline) Comparison: No Change Course - Vital Signs Last Recorded V/S: Last Vital Signs Temp 98.0 F 08/27/19 06:41 Pulse 82 08/27/19 06:41 Resp 22 H 08/27/19 06:41 BP 194/100 H 08/27/19 06:41 Pulse Ox 100 08/27/19 06:41 - Orders/Labs/Meds Orders: Active Orders 24 hr Category Date Time Status EKG Documentation Completion [RC] URGENT Care 08/27/19 06:37 Active Glucose [Blood Glucose Check, Bedside] [RC] ONETIME Care 08/27/19 06:38 Active Peripheral IV Care [RC] . DIRECTED Care 08/27/19 07:12 Active CULTURE BLOOD [BC] Stat Lab 08/27/19 06:58 Received DRUG SCREEN URINE BIORAD [URCHEM] Stat Lab 08/27/19 06:38 Ordered UA RFX EUGENE AND CULT IF INDIC [URIN] Urgent Lab 08/27/19 06:38 Ordered Octreotide [SandoSTATIN] 100 mcg Med 08/27/19 07:45 Active Sodium Chloride 0.9% [Normal Saline] 99 ml IV Q10H Pantoprazole [ProTONIX IV] 40 mg Med 08/27/19 07:45 Active Sodium Chloride 0.9% [Normal Saline] 100 ml IV .CONTINUOS Sodium Chloride 0.9% [Normal Saline] 500 ml Med 08/27/19 07:15 Active IV .BOLUS Sodium Chloride 0.9% [Saline Flush] Med 08/27/19 07:12 Active 10 ml FLUSH ASDIRECTED PRN Peripheral IV Insertion Adult [OM.PC] Stat Oth 08/27/19 07:12 Ordered Medication Orders Sodium Chloride (Normal Saline) 500 mls @ 250 mls/hr IV .BOLUS NITIN Last Admin: 08/27/19 07:29 Dose: 250 mls/hr Pantoprazole Sodium 40 mg/ (Sodium Chloride) 100 mls @ 20 mls/hr IV .CONTINUOS NITIN Octreotide Acetate 100 mcg/ (Sodium Chloride) 100 mls @ 50 mls/hr IV Q10H NITIN Sodium Chloride (Saline Flush) 10 ml FLUSH ASDIRECTED PRN PRN Reason: Keep Vein Open Labs: Laboratory Tests 08/27/19 08/27/19 08/27/19 Range/Units 06:44 06:44 06:44 WBC 11.8 H (5.0-10.0) 10^3/uL RBC 4.90 (4.6-6.2) 10^6/uL Hgb 14.2 D (14.0-18.0) g/dL Hct 43.1 (40.0-54.0) % MCV 88.0 (80-100) fL MCH 29.0 (27.0-34.0) pg MCHC 32.9 L (33.0-35.0) g/dL Plt Count 406 D (150-450) 10^3/uL Neut % (Auto) 80.3 H (42.2-75.2) % Lymph % (Auto) 11.8 L (20.5-50.1) % Early % (Auto) 5.1 (2-8) % Eos % (Auto) 2.4 (1.0-3.0) % Baso % (Auto) 0.4 (0.0-1.0) % Sodium 133 L (135-145) mmol/L Potassium 3.8 (3.6-5.0) mmol/L Chloride 91 L D (101-111) mmol/L Carbon Dioxide 20.0 L (21.0-31.0) mmol/L Anion Gap 25.8 BUN 32 H (7-18) mg/dL Creatinine 6.7 H D (0.6-1.3) mg/dL Est Cr Clr Drug Dosing 17.23 mL/min Estimated GFR (MDRD) 9 BUN/Creatinine Ratio 4.77 Glucose 94 (74-105) mg/dL Lactic Acid 3.4 H (0.5-2.2) mmol/L Calcium 8.1 L (8.4-10.2) mg/dl Total Bilirubin 0.9 (0.2-1.0) mg/dL AST 22 (10-42) IU/L ALT 16 (10-60) IU/L Alkaline Phosphatase 64 (42-121) IU/L Troponin I < 0.02 (0.00-0.02) ng/ml B-Natriuretic Peptide 313 H (0-100) pg/ml Total Protein 8.9 H (6.7-8.2) g/dl Albumin 4.2 (3.2-5.5) g/dl Globulin 4.7 Albumin/Globulin Ratio 0.89 Ethyl Alcohol mg/dL Ketones Negative 08/27/19 Range/Units 06:44 WBC (5.0-10.0) 10^3/uL RBC (4.6-6.2) 10^6/uL Hgb (14.0-18.0) g/dL Hct (40.0-54.0) % MCV (80-100) fL MCH (27.0-34.0) pg MCHC (33.0-35.0) g/dL Plt Count (150-450) 10^3/uL Neut % (Auto) (42.2-75.2) % Lymph % (Auto) (20.5-50.1) % Early % (Auto) (2-8) % Eos % (Auto) (1.0-3.0) % Baso % (Auto) (0.0-1.0) % Sodium (135-145) mmol/L Potassium (3.6-5.0) mmol/L Chloride (101-111) mmol/L Carbon Dioxide (21.0-31.0) mmol/L Anion Gap BUN (7-18) mg/dL Creatinine (0.6-1.3) mg/dL Est Cr Clr Drug Dosing mL/min Estimated GFR (MDRD) BUN/Creatinine Ratio Glucose (74-105) mg/dL Lactic Acid (0.5-2.2) mmol/L Calcium (8.4-10.2) mg/dl Total Bilirubin (0.2-1.0) mg/dL AST (10-42) IU/L ALT (10-60) IU/L Alkaline Phosphatase (42-121) IU/L Troponin I (0.00-0.02) ng/ml B-Natriuretic Peptide (0-100) pg/ml Total Protein (6.7-8.2) g/dl Albumin (3.2-5.5) g/dl Globulin Albumin/Globulin Ratio Ethyl Alcohol 45 mg/dL Ketones Gastric Occult: POSITIVE Meds: Medications Generic Name Dose Route Start Last Admin Trade Name Freq PRN Reason Stop Dose Admin Sodium Chloride 500 mls @ 250 mls/hr 08/27/19 07:15 08/27/19 07:29 Normal Saline IV 250 mls/hr .BOLUS NITIN Administration Pantoprazole Sodium 40 mg/ 100 mls @ 20 mls/hr 08/27/19 07:45 Sodium Chloride IV .CONTINUOS NITIN Octreotide Acetate 100 mcg/ 100 mls @ 50 mls/hr 08/27/19 07:45 Sodium Chloride IV Q10H NITIN Sodium Chloride 10 ml 08/27/19 07:12 Saline Flush FLUSH ASDIRECTED PRN Keep Vein Open Discontinued Medications Generic Name Dose Route Start Last Admin Trade Name Freq PRN Reason Stop Dose Admin Morphine Sulfate 4 mg 08/27/19 07:13 Morphine IVPUSH 08/27/19 07:14 ONETIME ONE Octreotide Acetate 50 mcg 08/27/19 07:33 Sandostatin IVPUSH 08/27/19 07:34 ONETIME ONE Ondansetron HCl 4 mg 08/27/19 07:06 08/27/19 07:10 Zofran IV 08/27/19 07:07 4 mg ONETIME ONE Administration Pantoprazole Sodium 80 mg 08/27/19 07:13 08/27/19 07:30 Protonix Iv IVPUSH 08/27/19 07:14 80 mg .BOLUS ONE Administration - Radiology Interpretation Free Text/Narrative:: [facility] Final Radiology Report Call: [phone] assistance Online chat: [email or web address] Name: SHELDON ORTEGA Age: 38Years M Date: 08/27/2019 SSN: -- : [id number] Study: XR CHEST 1 VIEW FRONTAL Requesting Physician: Yung Walton Images: 1 Addl Studies: Provided Clinical History: Contrast: Contrast Medium: Contrast Amount: Contrast Method: CONFIDENTIALITY STATEMENT This report is intended only for use by the referring physician, and only in accordance with law. If you received this in error, call [phone]. Page 1 of 1 PROCEDURE INFORMATION: Exam: XR Chest, 1 View Exam date and time: 08/27/2019 7:08 AM Clinical history: 38 years old, male; Shortness of breath; Chest pain; Type not specified TECHNIQUE: Imaging protocol: XR of the chest Views: 1 view. COMPARISON: CR Chest 1V Frontal 09/10/2018 3:30 PM FINDINGS: Lungs: Unremarkable. No consolidation. Pleural space: Unremarkable. No pleural effusion. No pneumothorax. Heart/Mediastinum: Unremarkable. No cardiomegaly. Bones/joints: Unremarkable. IMPRESSION: No acute findings. Thank you for allowing us to participate in the care of your patient. Dictated and Authenticated by: Isma Vincent MD 08/27/2019 7:27 AM Central Time ([place] & [place]) Departure - Departure Time of Disposition: 07:45 Disposition: DC/Tfer to [facility] 02 Condition: Serious Clinical Impression: Upper GI bleed, ESRD on hemodialysis, Alcohol abuse, History of developmental disorder, History of diabetes mellitus, type II - Discharge Information *PRESCRIPTION DRUG MONITORING PROGRAM REVIEWED*: No *COPY OF PRESCRIPTION DRUG MONITORING REPORT IN PATIENT WESLY: No Forms: ED Department Discharge, Interfacility Transfer EMTALA - My Orders Last 24 Hours: My Active Orders 08/27/19 07:12 Peripheral IV Care [RC] . DIRECTED Sodium Chloride 0.9% [Saline Flush] 10 ml FLUSH ASDIRECTED PRN Peripheral IV Insertion Adult [OM.PC] Stat 08/27/19 07:15 Sodium Chloride 0.9% [Normal Saline] 500 ml IV .BOLUS 08/27/19 07:45 Octreotide [SandoSTATIN] 100 mcg Sodium Chloride 0.9% [Normal Saline] 99 ml IV Q10H Pantoprazole [ProTONIX IV] 40 mg Sodium Chloride 0.9% [Normal Saline] 100 ml IV .CONTINUOS - Assessment/Plan Last 24 Hours: My Active Orders 08/27/19 07:12 Peripheral IV Care [RC] . DIRECTED Sodium Chloride 0.9% [Saline Flush] 10 ml FLUSH ASDIRECTED PRN Peripheral IV Insertion Adult [OM.PC] Stat 08/27/19 07:15 Sodium Chloride 0.9% [Normal Saline] 500 ml IV .BOLUS 08/27/19 07:45 Octreotide [SandoSTATIN] 100 mcg Sodium Chloride 0.9% [Normal Saline] 99 ml IV Q10H Pantoprazole [ProTONIX IV] 40 mg Sodium Chloride 0.9% [Normal Saline] 100 ml IV .CONTINUOS
[2019-08-27] MEDS ORDERED: Sodium Chloride 0.9% 10 ML Syringe FLUSH PRN (07:12)
[2019-08-27 07:13] LABS: ANION GAP 25.8; CHLORIDE,CL 91 mmol/L (101-111); SODIUM,NA 133 mmol/L (135-145)
[2019-08-27] MEDS ORDERED: Morphine 4 MG/ML Syringe IVPUSH ONE (07:13)
[2019-08-27] MEDS ORDERED: Pantoprazole 40 MG Vial IVPUSH ONE (07:13)
[2019-08-27] MEDS ORDERED: Sodium Chloride 0.9% 500 ML IV SCH (07:15)
[2019-08-27] MEDS ORDERED: Octreotide 100 MCG/ML SDV IVPUSH ONE (07:33)
[2019-08-27] MEDS ORDERED: Octreotide 100 MCG in Sodium Chloride 0.9% 99 ML IV SCH (07:45)
[2019-08-27] MEDS ORDERED: Pantoprazole 40 MG in Sodium Chloride 0.9% 100 ML IV SCH (07:45)
[2019-08-27] MEDS ORDERED: Ondansetron 4 MG/2 ML SDV ONE (08:10)
== END 2019-08-27 08:30 ==
LOC: DL.ED 06:50
DX: K92.2 Gastrointestinal hemorrhage, unspecified (principal); E11.22 Type 2 diabetes mellitus with diabetic chronic kidney disease; I13.2 Hypertensive heart and chronic kidney disease with heart failure and with stage 5 chronic kidney disease, or end stage renal disease; I50.9 Heart failure, unspecified; N18.6 End stage renal disease; F10.10 Alcohol abuse, uncomplicated; Y90.2 Blood alcohol level of 40-59 mg/100 ml; F89 Unspecified disorder of psychological development; E11.40 Type 2 diabetes mellitus with diabetic neuropathy, unspecified; K21.9 Gastro-esophageal reflux disease without esophagitis; E66.9 Obesity, unspecified; Z68.45 Body mass index [BMI] 70 or greater, adult; Z88.6 Allergy status to analgesic agent; Z99.2 Dependence on renal dialysis; Z79.4 Long term (current) use of insulin; Z79.899 Other long term (current) drug therapy
CPT/HCPCS: 36415; 71045; 80053; 82009; 82271; 82962; 83605; 83880; 84484; 85025; 87040; 93005; 96365; 96368; 96375; 96376; 99285; C9113; G0480; J2270; J2354; J2405; J7040; J7050

== ENCOUNTER 2020-04-29 12:24 | Emergency (ER) | payer MEDICARE, MEDICAID ==
[2020-04-29] MEDS ORDERED: Ondansetron 4 MG/2 ML SDV IV ONE (12:25)
[2020-04-29] MEDS ORDERED: Pantoprazole 40 MG Vial IVPUSH ONE (12:25)
[2020-04-29] MEDS ORDERED: Sodium Chloride 0.9% 10 ML Syringe FLUSH PRN (12:27)
[2020-04-29] MEDS ORDERED: Sodium Chloride 0.9% 500 ML IV SCH (12:30)
[2020-04-29] MEDS ORDERED: LORazepam 2 MG/ML SDV IVPUSH ONE (12:32)
[2020-04-29] MEDS ORDERED: Dicyclomine 20 MG/2 ML SDV IM ONE (12:36)
[2020-04-29] MEDS ORDERED: cloNIDine 0.1 MG Tab PO ONE (12:37)
[2020-04-29] MEDS ORDERED: Cyclobenzaprine 10 MG Tab PO ONE (12:41)
[2020-04-29] MEDS ORDERED: hydrOXYzine HCl 25 MG Tab PO ONE (12:41)
[2020-04-29 12:52] VITALS: BP 153/102
[2020-04-29 13:08] VITALS: PULSE 115
[2020-04-29 13:09] LABS: ANION GAP 19.6 mEq/L (7-13); CHLORIDE,CL 93 mmol/L (98-107); SODIUM,NA 137 mmol/L (136-145)
--- NOTE | 2020-04-29 13:21 | EDM.PDOC ---
Scribed by Humaira Griffith 04/29/20 1233 for Jose Ramon Ruffin MD ED HPI GENERAL MEDICAL PROBLEM - General Chief Complaint: Abdominal Pain Stated Complaint: ambulance Time Seen by Provider: 04/29/20 12:30 Source of Information: Reports: Patient, EMS, EMS Notes Reviewed, Old Records, RN, RN Notes Reviewed History Limitations: Reports: No Limitations - History of Present Illness INITIAL COMMENTS - FREE TEXT/NARRATIVE: Pt arrives from home with c/o nausea, vomiting, abdominal pain/cramping, cold sweats, and anxiety. Pt states that three days ago his doctor cut him off his Oxycodone. Pt had dialysis today, during which he began to have these symptoms. He went home and tried to rest, but could not stop dry heaving, so he called the ambulance. Pt denies chest pain, cough, shortness of breath, eye irritation/ drainage, loss of taste or smell, red tongue, rash or skin lesions, fevers, chills, recent travel, or known exposure to confirmed or suspected Covid-19 cases. Onset: Gradual Onset Date: 04/29/20 Duration: Constant Quality: Reports: Ache (Cramping) Severity: Severe Improves with: Reports: None Worsens with: Reports: None Associated Symptoms: Reports: No Other Symptoms Generalized Pain Score (Numeric/FACES): 10 - Related Data Allergies Allergy/AdvReac Type Severity Reaction Status Date / Time ibuprofen Allergy Mild Difficulty Verified 12/25/18 16:50 Breathing acetaminophen AdvReac Mild Liver Verified 08/27/19 06:47 Problems Home Meds: Home Meds Famotidine [Pepcid] 20 mg PO BID PRN 09/10/18 [History] Furosemide [Lasix] 40 mg PO BID #90 tablet 09/13/18 [Rx] Insulin Detemir [Levemir] 25 unit SUBCUT BEDTIME #1 pen 09/13/18 [Rx] amLODIPine [Norvasc] 5 mg PO DAILY 30 Days #30 tablet 09/13/18 [Rx] atenoloL [Tenormin] 50 mg PO DAILY #90 tablet 09/13/18 [Rx] Past Medical History - Past Health History Medical/Surgical History: Denies Medical/Surgical History HEENT History: Reports: None Cardiovascular History: Reports: Heart Failure, Hypertension Respiratory History: Reports: None Gastrointestinal History: Reports: Cirrhosis, GERD, GI Bleed, Hepatitis, Other ( See Below) Other Gastrointestinal History: HEP C Genitourinary History: Reports: Acute Renal Failure, Chronic Renal Insuffiency, Dialysis Musculoskeletal History: Reports: Other (See Below) Other Musculoskeletal History: many muscle surgeries; INJURY OF L SHOULDER Neurological History: Reports: Concussion, Head Trauma, Neuropathy, Diabetic Psychiatric History: Reports: Addiction, Other (See Below) Other Psychiatric History: ALCOHOL & NICOTINE HABITUATION Endocrine/Metabolic History: Reports: Diabetes, Type I, Obesity/BMI 30+ Hematologic History: Reports: None Immunologic History: Reports: Other (See Below) Other Immunologic History: HX OF MRSA Oncologic (Cancer) History: Reports: None Dermatologic History: Reports: Cellulitis, Other (See Below) Other Dermatologic History: WOUND OF LEG REQUIRED DEBRIBEMENT; ABCESS ON BACK REQUIRED I & D; ABCESS RIGHT HAND - Infectious Disease History Infectious Disease History: Reports: Hepatitis C, MRSA Other Infectious Disease History: PATIENT HAS LEARNING DISABILITY, POOR HISTORIAN - Past Surgical History Head Surgeries/Procedures: Reports: None HEENT Surgical History: Reports: None Cardiovascular Surgical History: Reports: None Respiratory Surgical History: Reports: None GI Surgical History: Reports: EGD Male Surgical History: Reports: None Endocrine Surgical History: Reports: None Neurological Surgical History: Reports: None Musculoskeletal Surgical History: Reports: Other (See Below) Other Musculoskeletal Surgeries/Procedures:: left great toe amputation Oncologic Surgical History: Reports: None Social & Family History - Family History Family Medical History: Noncontributory - Caffeine Use Caffeine Use: Reports: Coffee, Soda - Living Situation & Occupation Living situation: Reports: with Family (Lives with his sister.) Occupation: Disabled ED ROS GENERAL - Review of Systems Review Of Systems: Comprehensive ROS is negative, except as noted in HPI. ED EXAM, GENERAL - Physical Exam Exam: See Below Exam Limited By: No Limitations General Appearance: Alert, Anxious, Mild Distress, Obese Eye Exam: Bilateral Eye: EOMI, Normal Inspection, PERRL Ears: Normal External Exam, Hearing Grossly Normal Nose: Normal Inspection, Normal Mucosa, No Blood Throat/Mouth: Normal Lips, Normal Oropharynx, Normal Voice, No Airway Compromise Head: Atraumatic, Normocephalic Neck: Normal Inspection, Supple, Non-Tender, Full Range of Motion Respiratory/Chest: No Respiratory Distress, Lungs Clear, Normal Breath Sounds, No Accessory Muscle Use, Chest Non-Tender Cardiovascular: Regular Rate, Rhythm, No Edema, Tachycardia GI/Abdominal: Soft, No Distention, Tender (Mild diffuse tenderness), Abnormal Bowel Sounds (Slightly hyperactive bowel sounds). No: Guarding, Rigid, Rebound (Male) Exam: Deferred Rectal (Males) Exam: Deferred Back Exam: Normal Inspection, Full Range of Motion Extremities: Normal Inspection, Normal Range of Motion, Non-Tender, No Pedal Edema, Normal Capillary Refill Neurological: Alert, Oriented, CN II-XII Intact, Normal Gait, No Motor/Sensory Deficits Psychiatric: Anxious, Tearful Skin Exam: Warm, Intact, Normal Color, No Rash, Diaphoretic. No: Ecchymosis, Jaundice, Petechiae EKG INTERPRETATION EKG Date: 04/29/20 Time: 12:41 Rhythm: Other (sinus rhythm) Rate (Beats/Min): 88 [place]: Normal P-Wave: Enlarged (right atrial abnormality) QRS: Normal ST-T: Elevated (probable normal early repolarization pattern) QT: Normal Comparison: NA - No Prior EKG Course - Vital Signs Last Recorded V/S: Last Vital Signs Temp 97.6 F 04/29/20 12:58 Pulse 115 H 04/29/20 12:58 Resp 25 H 04/29/20 12:58 BP 153/102 H 04/29/20 12:58 Pulse Ox 98 04/29/20 12:58 - Orders/Labs/Meds Orders: Active Orders 24 hr Category Date Time Status EKG 12 Lead [EKG Documentation Completion] [RC] STAT Care 04/29/20 12:26 Active Peripheral IV Care [RC] . DIRECTED Care 04/29/20 12:27 Active Sodium Chloride 0.9% [Normal Saline] 500 ml Med 04/29/20 12:30 Active IV .BOLUS Sodium Chloride 0.9% [Saline Flush] Med 04/29/20 12:27 Active 10 ml FLUSH ASDIRECTED PRN Peripheral IV Insertion Adult [OM.PC] Stat Oth 04/29/20 12:26 Ordered Medication Orders Sodium Chloride (Normal Saline) 500 mls @ 250 mls/hr IV .BOLUS NITIN Last Admin: 04/29/20 12:41 Dose: 250 mls/hr Sodium Chloride (Saline Flush) 10 ml FLUSH ASDIRECTED PRN PRN Reason: Keep Vein Open Last Admin: 04/29/20 12:41 Dose: 10 ml Labs: Laboratory Tests 04/29/20 04/29/20 04/29/20 Range/Units 12:42 12:42 12:42 WBC 9.7 (5.0-10.0) 10^3/uL RBC 4.87 (4.6-6.2) 10^6/uL Hgb 14.7 (14.0-18.0) g/dL Hct 44.6 (40.0-54.0) % MCV 91.6 D (80-100) fL MCH 30.2 (27.0-34.0) pg MCHC 33.0 (33.0-35.0) g/dL Plt Count 308 D (150-450) 10^3/uL Neut % (Auto) 87.7 H (42.2-75.2) % Lymph % (Auto) 6.5 L (20.5-50.1) % [place] % (Auto) 5.3 (2-8) % Eos % (Auto) 0.3 L (1.0-3.0) % Baso % (Auto) 0.2 (0.0-1.0) % Sodium 137 (136-145) mmol/L Potassium 3.6 (3.5-5.1) mmol/L Chloride 93 L (98-107) mmol/L Carbon Dioxide 28 (21-32) mmol/L Anion Gap 19.6 H (7-13) mEq/L BUN 27 H (7-18) mg/dL Creatinine 5.96 H* (0.70-1.30) mg/dL Est Cr Clr Drug Dosing 18.07 mL/min Estimated GFR (MDRD) 11 BUN/Creatinine Ratio 4.5 (No establ ref range) Glucose 163 H (74-99) mg/dL Lactic Acid 3.1 H* (0.4-2.0) mmol/L Calcium 9.6 (8.5-10.1) mg/dL Phosphorus 3.1 (2.6-4.7) mg/dL Magnesium 1.9 (1.8-2.4) mg/dL Total Bilirubin 1.0 (0.2-1.0) mg/dL AST 23 (15-37) U/L ALT 39 (16-63) U/L Alkaline Phosphatase 99 (46-116) U/L Troponin I < 0.017 (0.000-0.056) ng/mL B-Natriuretic Peptide 68 (0-100) pg/ml Total Protein 10.2 H (6.4-8.2) g/dL Albumin 5.0 (3.4-5.0) g/dL Globulin 5.2 Albumin/Globulin Ratio 1.0 Amylase 77 (25-115) U/L Lipase 167 (73-393) U/L Ethyl Alcohol < 3 (0) mg/dL Meds: Medications Generic Name Dose Route Start Last Admin Trade Name Freq PRN Reason Stop Dose Admin Sodium Chloride 500 mls @ 250 mls/hr 04/29/20 12:30 04/29/20 12:41 Normal Saline IV 250 mls/hr .BOLUS NITIN Administration Sodium Chloride 10 ml 04/29/20 12:27 04/29/20 12:41 Saline Flush FLUSH 10 ml ASDIRECTED PRN Administration Keep Vein Open Discontinued Medications Generic Name Dose Route Start Last Admin Trade Name Amadoq PRN Reason Stop Dose Admin Clonidine HCl 0.2 mg 04/29/20 12:37 04/29/20 12:50 Catapres PO 04/29/20 12:38 0.2 mg ONETIME ONE Administration Cyclobenzaprine HCl 10 mg 04/29/20 12:41 04/29/20 12:51 Flexeril PO 04/29/20 12:42 10 mg ONETIME ONE Administration Dicyclomine HCl 20 mg 04/29/20 12:36 04/29/20 12:52 Bentyl IM 04/29/20 12:37 20 mg ONETIME ONE Administration Hydroxyzine HCl 50 mg 04/29/20 12:41 04/29/20 13:18 Atarax PO 04/29/20 12:42 50 mg ONETIME ONE Administration Lorazepam 1 mg 04/29/20 12:32 04/29/20 12:41 Ativan IVPUSH 04/29/20 12:33 1 mg ONETIME ONE Administration Ondansetron HCl 4 mg 04/29/20 12:25 04/29/20 12:41 Zofran IV 04/29/20 12:26 4 mg ONETIME ONE Administration Pantoprazole Sodium 80 mg 04/29/20 12:25 04/29/20 12:41 Protonix Iv IVPUSH 04/29/20 12:26 80 mg .BOLUS ONE Administration Departure - Departure Time of Disposition: 13:19 Disposition: Home, Self-Care 01 Condition: Good Clinical Impression: Opiate withdrawal - Discharge Information *PRESCRIPTION DRUG MONITORING PROGRAM REVIEWED*: Not Applicable *COPY OF PRESCRIPTION DRUG MONITORING REPORT IN PATIENT WESLY: Not Applicable Instructions: Opioid Withdrawal, Opioid Withdrawal Treatment Forms: ED Department Discharge Additional Instructions: Rx: Dicyclomine 20mg Rx: Clonidine 0.1mg Rx: Cyclobenzaprine 10mg Rx: Hydroxyzine 25mg Follow up in clinic in 2 to 3 days with your doctor. Sepsis Event Note - Focused Exam Vital Signs: Vital Signs Temp Pulse Resp BP BP Pulse Ox 04/29/20 12:58 97.6 F 115 H 25 H 153/102 H 98 04/29/20 12:50 153/102 H 04/29/20 12:45 154/98 H Date Exam was Performed: 04/29/20 Time Exam was Performed: 13:19 - My Orders Last 24 Hours: My Active Orders 04/29/20 12:26 EKG 12 Lead [EKG Documentation Completion] [RC] STAT Peripheral IV Insertion Adult [OM.PC] Stat 04/29/20 12:27 Peripheral IV Care [RC] . DIRECTED Sodium Chloride 0.9% [Saline Flush] 10 ml FLUSH ASDIRECTED PRN 04/29/20 12:30 Sodium Chloride 0.9% [Normal Saline] 500 ml IV .BOLUS - Assessment/Plan Last 24 Hours: My Active Orders 04/29/20 12:26 EKG 12 Lead [EKG Documentation Completion] [RC] STAT Peripheral IV Insertion Adult [OM.PC] Stat 04/29/20 12:27 Peripheral IV Care [RC] . DIRECTED Sodium Chloride 0.9% [Saline Flush] 10 ml FLUSH ASDIRECTED PRN 04/29/20 12:30 Sodium Chloride 0.9% [Normal Saline] 500 ml IV .BOLUS I have read and agree with the documentation that has been completed regarding this visit. By signing this record, I attest that the documentation was completed in my physical presence and is an accurate record of the encounter.
== END 2020-04-29 13:38 | disposition home or self-care (01) ==
LOC: DL.ED 12:24
DX: F11.23 Opioid dependence with withdrawal (principal); I13.2 Hypertensive heart and chronic kidney disease with heart failure and with stage 5 chronic kidney disease, or end stage renal disease; E10.22 Type 1 diabetes mellitus with diabetic chronic kidney disease; N18.6 End stage renal disease; I50.9 Heart failure, unspecified; Z99.2 Dependence on renal dialysis; K21.9 Gastro-esophageal reflux disease without esophagitis; E66.9 Obesity, unspecified; Z68.33 Body mass index [BMI] 33.0-33.9, adult; R11.2 Nausea with vomiting, unspecified; Z88.6 Allergy status to analgesic agent; Z79.899 Other long term (current) drug therapy
CPT/HCPCS: 36415; 80053; 80307; 82150; 83605; 83690; 83735; 83880; 84100; 84484; 85025; 93005; 93010; 96361; 96372; 96374; 96375; 99284; A9270; C9113; J0500; J2060; J2405; J7040

== ENCOUNTER 2020-07-06 08:35 | Emergency (ER) | payer MEDICARE, MEDICAID | END 2020-07-06 09:04 | disposition left against medical advice (07) | LOC: DL.ED 08:35 | DX: Z53.21 Procedure and treatment not carried out due to patient leaving prior to being seen by health care provider (principal) ==

== ENCOUNTER 2020-11-23 05:46 | Emergency (ER) | payer MEDICARE, MEDICAID ==
--- NOTE | 2020-11-23 06:23 | EDM.PDOC ---
<PaigerajatJacque Sly - Last Filed: 11/23/20 07:03> ED HPI GENERAL MEDICAL PROBLEM - General Chief Complaint: Skin Complaint Stated Complaint: LEG PAIN Time Seen by Provider: 11/23/20 06:15 Source of Information: Reports: Patient History Limitations: Reports: No Limitations - History of Present Illness INITIAL COMMENTS - FREE TEXT/NARRATIVE: ED per wheelchair with c/o pain to right lower leg x 2 days. First noticed black spot like pimple the slipiped and hit it on board yesterday and increased redness and pain with walking since. No fever or chills. Blood sugars 150-160. Pain with walking. Tylenol at bedtime. Denies prior skin infection . Dialysis pending for this am. Right Lower Leg Pain Score (Numeric/FACES): 10 - Related Data Allergies Allergy/AdvReac Type Severity Reaction Status Date / Time ibuprofen Allergy Mild Difficulty Verified 07/06/20 09:14 Breathing acetaminophen AdvReac Mild Liver Verified 07/06/20 09:14 Problems Home Meds: Home Meds Aluminum Chloride 100 gm PO DAILY 11/23/20 [History] Amitriptyline [Elavil] 25 mg PO BEDTIME 11/23/20 [History] Biotin/FA/Vit C/Vit B Complex [Nephrocaps] 1 tab PO DAILY 11/23/20 [History] Bumetanide [Bumex] 3 mg PO BID 11/23/20 [History] Famotidine [Pepcid] 20 mg PO BID 11/23/20 [History] Gabapentin [Neurontin] 300 mg PO BID 11/23/20 [History] Insulin Aspart [NovoLOG] 6 unit SQ WITHMEALSANDBED 11/23/20 [History] Insulin Detemir [Levemir Flextouch] 6 unit SQ BEDTIME 11/23/20 [History] Losartan [Cozaar] 100 mg PO DAILY 11/23/20 [History] Metoprolol Succinate 200 mg PO BEDTIME 11/23/20 [History] Sofosbuvir/Velpatasvir [Sofosbuvir-Velpatasvir 400-100] 1 tab PO DAILY 11/23/20 [History] amLODIPine [Norvasc] 10 mg PO BEDTIME 11/23/20 [History] hydrALAZINE [Apresoline] 100 mg PO BID 11/23/20 [History] metOLazone [Metolazone] 2.5 mg PO DAILY 11/23/20 [History] rOPINIRole [Requip] 2 mg PO BEDTIME 11/23/20 [History] Past Medical History - Past Health History Medical/Surgical History: Denies Medical/Surgical History HEENT History: Reports: None Cardiovascular History: Reports: Heart Failure, Hypertension Respiratory History: Reports: None Gastrointestinal History: Reports: Cirrhosis, GERD, GI Bleed, Hepatitis, Other (See Below) Other Gastrointestinal History: HEP C Genitourinary History: Reports: Acute Renal Failure, Chronic Renal Insuffiency, Dialysis Musculoskeletal History: Reports: Other (See Below) Other Musculoskeletal History: many muscle surgeries; INJURY OF L SHOULDER Neurological History: Reports: Concussion, Head Trauma, Neuropathy, Diabetic Psychiatric History: Reports: Addiction, Other (See Below) Other Psychiatric History: ALCOHOL & NICOTINE HABITUATION Endocrine/Metabolic History: Reports: Diabetes, Type I, Obesity/BMI 30+ Hematologic History: Reports: None Immunologic History: Reports: Other (See Below) Other Immunologic History: HX OF MRSA Oncologic (Cancer) History: Reports: None Dermatologic History: Reports: Cellulitis, Other (See Below) Other Dermatologic History: WOUND OF LEG REQUIRED DEBRIBEMENT; ABCESS ON BACK REQUIRED I & D; ABCESS RIGHT HAND - Infectious Disease History Infectious Disease History: Reports: Hepatitis C, MRSA Other Infectious Disease History: PATIENT HAS LEARNING DISABILITY, POOR HISTORIAN - Past Surgical History Head Surgeries/Procedures: Reports: None HEENT Surgical History: Reports: None Cardiovascular Surgical History: Reports: None Respiratory Surgical History: Reports: None GI Surgical History: Reports: EGD Male Surgical History: Reports: None Endocrine Surgical History: Reports: None Neurological Surgical History: Reports: None Musculoskeletal Surgical History: Reports: Other (See Below) Other Musculoskeletal Surgeries/Procedures:: left great toe amputation Oncologic Surgical History: Reports: None Social & Family History - Family History Family Medical History: No Pertinent Family History - Caffeine Use Caffeine Use: Reports: Coffee - Living Situation & Occupation Living situation: Reports: with Family (Lives with his sister.) Occupation: Disabled ED ROS GENERAL - Review of Systems Review Of Systems: Comprehensive ROS is negative, except as noted in HPI. Constitutional: Denies: Fever ED EXAM, SKIN/RASH Exam: See Below Exam Limited By: No Limitations General Appearance: Alert, Anxious, Mild Distress Eye Exam: Bilateral Eye: EOMI Ears: Normal External Exam Nose: Normal Inspection Throat/Mouth: Normal Inspection Head: Atraumatic, Normocephalic Respiratory/Chest: No Respiratory Distress, Lungs Clear Cardiovascular: Normal Peripheral Pulses, Regular Rate, Rhythm Extremities: Leg Pain, Redness (anterior right elizalde red warm firm , central raised ) Neurological: Alert, Oriented. No: Normal Cognition Skin: Dry Location, Skin: Lower Extremity, Right Associated features: Warmth, Tenderness, Induration Course - Re-Assessments/Exams Free Text/Narrative Re-Assessment/Exam: 11/23/20 07:[address] Ruffin with change of shift Departure - Departure Disposition: DC/[facility]fer to [facility] 02 Clinical Impression: Cellulitis of right lower leg, History of MRSA infection, ESRD on hemodialysis - Discharge Information Forms: ED Department Discharge, Interfacility Transfer EMTALA <Jose Ramon Ruffin - Last Filed: 11/23/20 08:00> ED HPI GENERAL MEDICAL PROBLEM - History of Present Illness INITIAL COMMENTS - FREE TEXT/NARRATIVE: I assumed care of the pt from Jacque NICHOLSON at 0700HR shift change with lab results pending. Pt has Rt anterior lower leg cellulitis. Hx of MRSA, DM Type 1, and ESRD on dialysis. ED EXAM, SKIN/RASH Text/Narrative:: No changes to exam as documented by Jacque NICHOLSON for this encounter. Course - Vital Signs Last Recorded V/S: Last Vital Signs Temp 98.2 F 11/23/20 06:22 Pulse 91 11/23/20 06:22 Resp 16 11/23/20 06:22 BP 150/100 H 11/23/20 06:22 Pulse Ox 97 11/23/20 06:22 - Orders/Labs/Meds Orders: Active Orders 24 hr Category Date Time Status CULTURE WOUND [RM] Stat Lab 11/23/20 06:13 Received Vancomycin 1,500 mg Med 11/23/20 06:49 Active Sodium Chloride 0.9% [Normal Saline] 500 ml IV ONETIME Medication Orders Vancomycin HCl 1,500 mg/ (Sodium Chloride) 500 mls @ 333.333 mls/hr IV ONETIME ONE Stop: 11/23/20 08:18 Last Admin: 11/23/20 07:24 Dose: 333.333 mls/hr Documented by: HODODEB Labs: Laboratory Tests 11/23/20 11/23/20 11/23/20 Range/Units 06:27 06:27 06:27 WBC 12.1 H (5.0-10.0) 10^3/uL RBC 3.80 L (4.6-6.2) 10^6/uL Hgb 11.3 L D (14.0-18.0) g/dL Hct 34.6 L (40.0-54.0) % MCV 91.1 (80-100) fL MCH 29.7 (27.0-34.0) pg MCHC 32.7 L (33.0-35.0) g/dL Plt Count 283 (150-450) 10^3/uL Neut % (Auto) 80.3 H (42.2-75.2) % Lymph % (Auto) 6.5 L (20.5-50.1) % [place] % (Auto) 10.2 H (2-8) % Eos % (Auto) 2.8 (1.0-3.0) % Baso % (Auto) 0.2 (0.0-1.0) % Sodium 137 (136-145) mmol/L Potassium 4.4 (3.5-5.1) mmol/L Chloride 100 (98-107) mmol/L Carbon Dioxide 25 (21-32) mmol/L Anion Gap 16.4 H (7-13) mEq/L BUN 64 H D (7-18) mg/dL Creatinine 8.41 H* D (0.70-1.30) mg/dL Est Cr Clr Drug Dosing 11.52 mL/min Estimated GFR (MDRD) 7 BUN/Creatinine Ratio 7.6 (No establ ref range) Glucose 122 H (74-99) mg/dL Lactic Acid 0.8 (0.4-2.0) mmol/L Calcium 7.2 L D (8.5-10.1) mg/dL Total Bilirubin 0.4 (0.2-1.0) mg/dL AST 7 L (15-37) U/L ALT 15 L (16-63) U/L Alkaline Phosphatase 94 (46-116) U/L Total Protein 7.3 (6.4-8.2) g/dL Albumin 3.2 L (3.4-5.0) g/dL Globulin 4.1 Albumin/Globulin Ratio 0.78 Meds: Medications Generic Name Dose Route Start Last Admin Trade Name Freq PRN Reason Stop Dose Admin Vancomycin HCl 1,500 mg/ 500 mls @ 333.333 mls/hr 11/23/20 06:49 11/23/20 07:24 Sodium Chloride IV 11/23/20 08:18 333.333 mls/hr ONETIME ONE Administration Discontinued Medications Generic Name Dose Route Start Last Admin Trade Name Freq PRN Reason Stop Dose Admin Diphenhydramine HCl 25 mg 11/23/20 06:49 11/23/20 07:23 Benadryl IVPUSH 11/23/20 06:50 25 mg ONETIME ONE Administration Hydromorphone HCl 1 mg 11/23/20 07:44 11/23/20 07:49 Dilaudid IVPUSH 11/23/20 07:45 1 mg ONETIME ONE Administration - Radiology Interpretation Free Text/Narrative:: [facility] Final Radiology Report Call: [phone] assistance Online chat: [email or web address] Name: SHELDON ORTEGA Age: 40Years M Date: 11/23/2020 SSN: -- : [id number] Study: CR TIBIA FIBULA RT Requesting Physician: JACQUE BENOIT Images: 2 Addl Studies: Provided Clinical History: pain swelling, Contrast: Contrast Medium: Contrast Amount: Contrast Method: CONFIDENTIALITY STATEMENT This report is intended only for use by the referring physician, and only in accordance with law. If you received this in error, call [phone]. Page 1 of 1 PROCEDURE INFORMATION: Exam: XR Right Tibia and Fibula Exam date and time: 11/23/2020 7:00 AM Age: 40 years old Clinical indication: Patient HX: Pain, swelling and redness mid shaft of right lower leg anteriorly; Additional info: Pain swelling, TECHNIQUE: Imaging protocol: XR Right tibia and fibula. Views: 2 views. COMPARISON: No relevant prior studies available. FINDINGS: Bones/joints: No fracture. No periosteal reaction. No bone destruction. Soft tissues: There is superficial soft tissue swelling with stranding in the subcutaneous tissue compatible with a cellulitis given the history. No soft tissue radiopaque foreign body. IMPRESSION: 1. Cellulitis. 2. No osseous abnormality. Thank you for allowing us to participate in the care of your patient. Dictated and Authenticated by: Bryn Monreal MD 11/23/2020 7:30 AM Central Time ([place] & [place]) Departure - Departure Time of Disposition: 07:58 Condition: Good - Discharge Information *PRESCRIPTION DRUG MONITORING PROGRAM REVIEWED*: Not Applicable *COPY OF PRESCRIPTION DRUG MONITORING REPORT IN PATIENT WESLY: Not Applicable Sepsis Event Note (ED) - Focused Exam Vital Signs: Vital Signs Temp Pulse Resp BP Pulse Ox 11/23/20 06:22 98.2 F 91 16 150/100 H 97
[2020-11-23 06:29] VITALS: BP 150/100; PULSE 91
[2020-11-23] MEDS ORDERED: diphenhydrAMINE 50 MG/ML SDV IVPUSH ONE (06:49)
[2020-11-23 06:56] LABS: ANION GAP 16.4 mEq/L (7-13)
--- NOTE | 2020-11-23 07:31 | CR ---
PROCEDURE INFORMATION: Exam: XR Right Tibia and Fibula Exam date and time: 11/23/2020 7:00 AM Age: 40 years old Clinical indication: Patient HX: Pain, swelling and redness mid shaft of right lower leg anteriorly; Additional info: Pain swelling, TECHNIQUE: Imaging protocol: XR Right tibia and fibula. Views: 2 views. COMPARISON: No relevant prior studies available. FINDINGS: Bones/joints: No fracture. No periosteal reaction. No bone destruction. Soft tissues: There is superficial soft tissue swelling with stranding in the subcutaneous tissue compatible with a cellulitis given the history. No soft tissue radiopaque foreign body. IMPRESSION: 1. Cellulitis. 2. No osseous abnormality.
[2020-11-23] MEDS ORDERED: HYDROmorphone 1 MG/ML Syringe IVPUSH ONE (07:44)
== END 2020-11-23 08:35 ==
LOC: DL.ED 05:46
DX: L03.115 Cellulitis of right lower limb (principal); I13.2 Hypertensive heart and chronic kidney disease with heart failure and with stage 5 chronic kidney disease, or end stage renal disease; E10.22 Type 1 diabetes mellitus with diabetic chronic kidney disease; N18.6 End stage renal disease; I50.9 Heart failure, unspecified; E66.9 Obesity, unspecified; Z68.35 Body mass index [BMI] 35.0-35.9, adult; Z99.2 Dependence on renal dialysis; Z88.6 Allergy status to analgesic agent; Z79.899 Other long term (current) drug therapy
CPT/HCPCS: 36415; 73590-RT; 80053; 83605; 85025; 87070; 87077; 87186; 96365; 96375; 99284; 99284-25; J1170; J1200; J3370; J7040

== ENCOUNTER 2021-03-22 10:06 | Observation (INO) | payer MEDICARE, MEDICAID ==
--- NOTE | 2021-03-22 10:54 | EDM.PDOC ---
ED HPI GENERAL MEDICAL PROBLEM - General Chief Complaint: Skin Complaint Stated Complaint: LEFT LEG BOIL Time Seen by Provider: 03/22/21 10:54 Source of Information: Reports: Patient, RN, RN Notes Reviewed History Limitations: Reports: No Limitations - History of Present Illness INITIAL COMMENTS - FREE TEXT/NARRATIVE: Patient is a 40-year-old male who presents to ER with complaint of wound on the left anterior thigh. He states he was seen in the clinic on Friday, had an abscess on the left upper thigh which was I indeed at that time. He was put on doxycycline. States this morning before he went to dialysis he was going to change the dressing and the dressing was very adhered to the area, states he had to get in the bathtub to wet it to get it off. Patient states he has a history of abscesses on the legs bilaterally. Admits to chills yesterday, nausea, vomiting. Denies fever, chest pains, shortness of breath, diarrhea. Patient admits to being diabetic, and states that he has not taken insulin in over a month because it has not been refilled at his pharmacy. Also states he has not seen his primary care provider in a month or longer. History of hypertension and on hemodialysis chronically at this point. Denies alcohol use. States he smokes marijuana but denies any other drug use. Onset: Gradual Left Thigh Pain Score (Numeric/FACES): 9 - Related Data Allergies Allergy/AdvReac Type Severity Reaction Status Date / Time ibuprofen Allergy Mild Difficulty Verified 07/06/20 09:14 Breathing acetaminophen AdvReac Mild Liver Verified 07/06/20 09:14 Problems Home Meds: Home Meds Aluminum Chloride 100 gm PO DAILY 11/23/20 [History] Amitriptyline [Elavil] 25 mg PO BEDTIME 11/23/20 [History] Biotin/FA/Vit C/Vit B Complex [Nephrocaps] 1 tab PO DAILY 11/23/20 [History] Bumetanide [Bumex] 3 mg PO BID 11/23/20 [History] Famotidine [Pepcid] 20 mg PO BID 11/23/20 [History] Gabapentin [Neurontin] 300 mg PO BID 11/23/20 [History] Insulin Aspart [NovoLOG] 6 unit SQ WITHMEALSANDBED 11/23/20 [History] Insulin Detemir [Levemir Flextouch] 6 unit SQ BEDTIME 11/23/20 [History] Losartan [Cozaar] 100 mg PO DAILY 11/23/20 [History] Metoprolol Succinate 200 mg PO BEDTIME 11/23/20 [History] Sofosbuvir/Velpatasvir [Sofosbuvir-Velpatasvir 400-100] 1 tab PO DAILY 11/23/20 [History] amLODIPine [Norvasc] 10 mg PO BEDTIME 11/23/20 [History] hydrALAZINE [Apresoline] 100 mg PO BID 11/23/20 [History] metOLazone [Metolazone] 2.5 mg PO DAILY 11/23/20 [History] rOPINIRole [Requip] 2 mg PO BEDTIME 11/23/20 [History] Past Medical History - Past Health History Medical/Surgical History: Denies Medical/Surgical History HEENT History: Reports: None Cardiovascular History: Reports: Heart Failure, Hypertension Respiratory History: Reports: None Gastrointestinal History: Reports: Cirrhosis, GERD, GI Bleed, Hepatitis, Other (See Below) Other Gastrointestinal History: Hepatitis C Genitourinary History: Reports: Acute Renal Failure, Chronic Renal Insuffiency, Dialysis Musculoskeletal History: Reports: Other (See Below) Other Musculoskeletal History: many muscle surgeries; INJURY OF L SHOULDER Neurological History: Reports: Concussion, Head Trauma, Neuropathy, Diabetic Psychiatric History: Reports: Addiction, Other (See Below) Other Psychiatric History: ALCOHOL & NICOTINE HABITUATION Endocrine/Metabolic History: Reports: Diabetes, Type I, Obesity/BMI 30+ Hematologic History: Reports: None Immunologic History: Reports: Other (See Below) Other Immunologic History: HX OF MRSA Oncologic (Cancer) History: Reports: None Dermatologic History: Reports: Cellulitis, Other (See Below) Other Dermatologic History: WOUND OF LEG REQUIRED DEBRIBEMENT; ABCESS ON BACK REQUIRED I & D; ABCESS RIGHT HAND - Infectious Disease History Infectious Disease History: Reports: Hepatitis C, MRSA Other Infectious Disease History: PATIENT HAS LEARNING DISABILITY, POOR HISTORIAN - Past Surgical History Head Surgeries/Procedures: Reports: None HEENT Surgical History: Reports: None Cardiovascular Surgical History: Reports: None Respiratory Surgical History: Reports: None GI Surgical History: Reports: EGD Male Surgical History: Reports: None Endocrine Surgical History: Reports: None Neurological Surgical History: Reports: None Musculoskeletal Surgical History: Reports: Other (See Below) Other Musculoskeletal Surgeries/Procedures:: left great toe amputation Oncologic Surgical History: Reports: None Social & Family History - Family History Family Medical History: No Pertinent Family History - Tobacco Use Tobacco Use Status *Q: Current Every Day Tobacco User Years of Tobacco use: 20 Packs/Tins Daily: 1 - Caffeine Use Caffeine Use: Reports: None - Recreational Drug Use Recreational Drug Use: Yes Drug Use in Last 12 Months: Yes Recreational Drug Type: Reports: Marijuana/Hashish - Living Situation & Occupation Living situation: Reports: with Family (Lives with his sister.) Occupation: Disabled ED ROS GENERAL - Review of Systems Review Of Systems: Comprehensive ROS is negative, except as noted in HPI. ED EXAM, SKIN/RASH Exam: See Below Exam Limited By: No Limitations General Appearance: Alert, WD/WN, No Apparent Distress Eye Exam: Bilateral Eye: EOMI, Normal Inspection Course - Vital Signs Last Recorded V/S: Last Vital Signs Temp 97.6 F 03/22/21 15:49 Pulse 112 H 03/22/21 15:49 Resp 18 03/22/21 15:49 BP 136/91 H 03/22/21 15:49 Pulse Ox 99 03/22/21 15:49 - Orders/Labs/Meds Orders: Active Orders 24 hr Category Date Time Status Late Tray [DIET] Routine Diet 03/22/21 13:04 Active CULTURE BLOOD [BC] Stat Lab 03/22/21 11:21 Received CULTURE BLOOD [BC] Stat Lab 03/22/21 11:29 Received Ampicillin/Sulbactam Na [Unasyn] 1.5 gm Med 03/22/21 17:31 Active Sodium Chloride 0.9% [Normal Saline] 100 ml IV ONETIME Blood Culture x2 Reflex Set [OM.PC] Stat Oth 03/22/21 11:07 Ordered Medication Orders Ampicillin Sodium/Sulbactam (Sodium 1.5 gm/ Sodium Chloride) 100 mls @ 200 mls/hr IV ONETIME ONE Stop: 03/22/21 18:00 Labs: Laboratory Tests 03/22/21 03/22/21 03/22/21 Range/Units 11:21 11:21 11:21 WBC 8.3 (5.0-10.0) 10^3/uL RBC 4.76 (4.6-6.2) 10^6/uL Hgb 14.1 D (14.0-18.0) g/dL Hct 42.9 (40.0-54.0) % MCV 90.1 (80-100) fL MCH 29.6 (27.0-34.0) pg MCHC 32.9 L (33.0-35.0) g/dL Plt Count 363 D (150-450) 10^3/uL Neut % (Auto) 75.2 (42.2-75.2) % Lymph % (Auto) 12.3 L (20.5-50.1) % Bland % (Auto) 8.7 H (2-8) % Eos % (Auto) 3.4 H (1.0-3.0) % Baso % (Auto) 0.4 (0.0-1.0) % Sodium 133 L (136-145) mmol/L Potassium 4.0 (3.5-5.1) mmol/L Chloride 93 L (98-107) mmol/L Carbon Dioxide 26 (21-32) mmol/L Anion Gap 18.0 H (7-13) mEq/L BUN 28 H D (7-18) mg/dL Creatinine 5.43 H* D (0.70-1.30) mg/dL Est Cr Clr Drug Dosing 20.04 mL/min Estimated GFR (MDRD) 12 BUN/Creatinine Ratio 5.2 (No establ ref range) Glucose 103 H (70-99) mg/dL POC Glucose (70-99) mg/dL Lactic Acid 1.0 (0.4-2.0) mmol/L Calcium 9.3 D (8.5-10.1) mg/dL Total Bilirubin 0.8 (0.2-1.0) mg/dL AST 17 (15-37) U/L ALT 30 (16-63) U/L Alkaline Phosphatase 89 (46-116) U/L C-Reactive Protein 1.3 H (0.0-0.9) mg/dL Total Protein 9.6 H (6.4-8.2) g/dL Albumin 4.2 (3.4-5.0) g/dL Globulin 5.4 Albumin/Globulin Ratio 0.8 SARS-CoV-2 RNA (KATT) (NEGATIVE) 03/22/21 03/22/21 03/22/21 Range/Units 11:34 13:16 16:53 WBC (5.0-10.0) 10^3/uL RBC (4.6-6.2) 10^6/uL Hgb (14.0-18.0) g/dL Hct (40.0-54.0) % MCV (80-100) fL MCH (27.0-34.0) pg MCHC (33.0-35.0) g/dL Plt Count (150-450) 10^3/uL Neut % (Auto) (42.2-75.2) % Lymph % (Auto) (20.5-50.1) % Bland % (Auto) (2-8) % Eos % (Auto) (1.0-3.0) % Baso % (Auto) (0.0-1.0) % Sodium (136-145) mmol/L Potassium (3.5-5.1) mmol/L Chloride (98-107) mmol/L Carbon Dioxide (21-32) mmol/L Anion Gap (7-13) mEq/L BUN (7-18) mg/dL Creatinine (0.70-1.30) mg/dL Est Cr Clr Drug Dosing mL/min Estimated GFR (MDRD) BUN/Creatinine Ratio (No establ ref range) Glucose (70-99) mg/dL POC Glucose 98 105 H (70-99) mg/dL Lactic Acid (0.4-2.0) mmol/L Calcium (8.5-10.1) mg/dL Total Bilirubin (0.2-1.0) mg/dL AST (15-37) U/L ALT (16-63) U/L Alkaline Phosphatase (46-116) U/L C-Reactive Protein (0.0-0.9) mg/dL Total Protein (6.4-8.2) g/dL Albumin (3.4-5.0) g/dL Globulin Albumin/Globulin Ratio SARS-CoV-2 RNA (KATT) Negative (NEGATIVE) Meds: Medications Generic Name Dose Route Start Last Admin Trade Name Freq PRN Reason Stop Dose Admin Ampicillin Sodium/Sulbactam 100 mls @ 200 mls/hr 03/22/21 17:31 Sodium 1.5 gm/ Sodium Chloride IV 03/22/21 18:00 ONETIME ONE Discontinued Medications Generic Name Dose Route Start Last Admin Trade Name Freq PRN Reason Stop Dose Admin Fentanyl 50 mcg 03/22/21 11:09 03/22/21 11:23 Fentanyl 100 Mcg/2 Ml Sdv IVPUSH 03/22/21 11:10 50 mcg ONETIME ONE Administration Fentanyl 50 mcg 03/22/21 14:43 03/22/21 14:57 Fentanyl 100 Mcg/2 Ml Sdv IVPUSH 03/22/21 14:44 50 mcg ONETIME ONE Administration - Re-Assessments/Exams Free Text/Narrative Re-Assessment/Exam: 03/22/21 17:58 Room not available in [facility] until tomorrow. Patient will be admitted to observation for management until the patient can be transferred. Dr. Mccall is accepting. Departure - Departure Time of Disposition: 18:00 Disposition: Refer to Observation Condition: Good Clinical Impression: Abscess - Discharge Information *PRESCRIPTION DRUG MONITORING PROGRAM REVIEWED*: No *COPY OF PRESCRIPTION DRUG MONITORING REPORT IN PATIENT WESLY: No Forms: ED Department Discharge Sepsis Event Note (ED) - Evaluation Sepsis Screening Result: No Definite Risk - Focused Exam Vital Signs: Vital Signs Temp Pulse Resp BP Pulse Ox 03/22/21 15:49 97.6 F 112 H 18 136/91 H 99 03/22/21 14:31 98.4 F 87 19 134/73 98 03/22/21 13:21 98.7 F 87 18 150/89 H 100 03/22/21 10:13 97.7 F 90 20 132/102 H 100 - My Orders Last 24 Hours: My Active Orders 03/22/21 11:07 Blood Culture x2 Reflex Set [OM.PC] Stat 03/22/21 11:21 CULTURE BLOOD [BC] Stat 03/22/21 11:29 CULTURE BLOOD [BC] Stat 03/22/21 13:04 Late Tray [DIET] Routine 03/22/21 17:31 Ampicillin/Sulbactam Na [Unasyn] 1.5 gm Sodium Chloride 0.9% [Normal Saline] 100 ml IV ONETIME - Assessment/Plan Last 24 Hours: My Active Orders 03/22/21 11:07 Blood Culture x2 Reflex Set [OM.PC] Stat 03/22/21 11:21 CULTURE BLOOD [BC] Stat 03/22/21 11:29 CULTURE BLOOD [BC] Stat 03/22/21 13:04 Late Tray [DIET] Routine 03/22/21 17:31 Ampicillin/Sulbactam Na [Unasyn] 1.5 gm Sodium Chloride 0.9% [Normal Saline] 100 ml IV ONETIME
[2021-03-22] MEDS ORDERED: fentaNYL 100 MCG/2 ML SDV IVPUSH ONE ×2 (11:09→14:43)
[2021-03-22] MEDS ORDERED: Ampicillin/Sulbactam Na 1.5 GM in Sodium Chloride 0.9% 100 ML IV ONE (17:31)
[2021-03-22] MEDS ORDERED: Acetaminophen 325 MG Tab PO PRN (18:23)
[2021-03-22] MEDS ORDERED: Sodium Chloride 0.9% 10 ML Syringe FLUSH PRN (18:36)
[2021-03-22] MEDS: fentaNYL 100 MCG/2 ML SDV IVPUSH SCH ×3 (19:40→23:31)
[2021-03-22] MEDS: Famotidine 20 MG Tab PO SCH ×2 (19:43→20:54)
[2021-03-22] MEDS: Bumetanide 1 MG Tab PO SCH (19:43)
[2021-03-22] MEDS: Gabapentin 300 MG Cap PO SCH (20:44)
[2021-03-22] MEDS: hydrALAZINE 25 MG Tab PO SCH (20:44)
[2021-03-22] MEDS ORDERED: Non-Formulary Medication 1 Each (Calcium Acetate [Phoslo] 667 MG Cap) PO SCH (21:00)
[2021-03-22] MEDS ORDERED: amLODIPine 5 MG Tab PO SCH (21:00)
[2021-03-22] MEDS ORDERED: Amitriptyline 25 MG Tab PO SCH (21:00)
[2021-03-22] MEDS ORDERED: Insulin Glarg,Human.Rec.Analog 100 Unit/ML SUBCUT SCH (21:00)
[2021-03-22] MEDS ORDERED: Metoprolol Succinate 50 MG Tab.ER PO SCH (21:00)
[2021-03-22] MEDS ORDERED: rOPINIRole 2 MG Tab PO SCH (21:00)
[2021-03-22] MEDS: Insulin Lispro 100 Units/ML 3 ML Vial SUBCUT SCH (21:16)
[2021-03-23] MEDS: fentaNYL 100 MCG/2 ML SDV IVPUSH SCH ×7 (01:44→11:53)
[2021-03-23 06:33] LABS: ANION GAP 21.4 mEq/L (7-13)
[2021-03-23] MEDS: Famotidine 20 MG Tab PO SCH (08:49)
[2021-03-23] MEDS: Gabapentin 300 MG Cap PO SCH (08:49)
[2021-03-23] MEDS: hydrALAZINE 25 MG Tab PO SCH (08:50)
[2021-03-23] MEDS: Bumetanide 1 MG Tab PO SCH (08:51)
[2021-03-23] MEDS: Insulin Lispro 100 Units/ML 3 ML Vial SUBCUT SCH ×2 (08:53→12:13)
[2021-03-23] MEDS ORDERED: Metolazone 2.5 MG Tab PO SCH (09:00)
[2021-03-23] MEDS ORDERED: Losartan 50 MG Tab PO SCH (09:00)
[2021-03-23] MEDS ORDERED: [UNRECOGNIZED DRUG - OTHER] PO SCH (09:00)
[2021-03-23] MEDS ORDERED: Albuterol 0.083% 2.5 MG/3 ML Neb Soln NEB PRN (11:41)
[2021-03-23 12:22] VITALS: BP 109/65; PULSE 67
--- NOTE | 2021-03-23 12:28 | PCM.HP ---
H&P History of Present Illness - General Date of Service: 03/22/21 Admit Problem/Dx: Admission Diagnosis/Problem Admission Diagnosis/Problem Cellulitis Left Thigh Pain Score (Numeric/FACES): 9 - Related Data Allergies/Adverse Reactions: Allergies Allergy/AdvReac Type Severity Reaction Status Date / Time ibuprofen Allergy Mild Difficulty Verified 03/22/21 18:30 Breathing acetaminophen AdvReac Mild Liver Verified 03/22/21 18:30 Problems Home Medications: Home Meds Aluminum Chloride 100 gm PO DAILY 11/23/20 [History] Amitriptyline [Elavil] 25 mg PO BEDTIME 11/23/20 [History] Biotin/FA/Vit C/Vit B Complex [Nephrocaps] 1 tab PO DAILY 11/23/20 [History] Bumetanide [Bumex] 3 mg PO BID 11/23/20 [History] Famotidine [Pepcid] 20 mg PO BID 11/23/20 [History] Gabapentin [Neurontin] 300 mg PO BID 11/23/20 [History] Insulin Aspart [NovoLOG] 6 unit SQ WITHMEALSANDBED 11/23/20 [History] Insulin Detemir [Levemir Flextouch] 6 unit SQ BEDTIME 11/23/20 [History] Losartan [Cozaar] 100 mg PO DAILY 11/23/20 [History] Metoprolol Succinate 200 mg PO BEDTIME 11/23/20 [History] Sofosbuvir/Velpatasvir [Sofosbuvir-Velpatasvir 400-100] 1 tab PO DAILY 11/23/20 [History] amLODIPine [Norvasc] 10 mg PO BEDTIME 11/23/20 [History] hydrALAZINE [Apresoline] 100 mg PO BID 11/23/20 [History] metOLazone [Metolazone] 2.5 mg PO DAILY 11/23/20 [History] rOPINIRole [Requip] 2 mg PO BEDTIME 11/23/20 [History] Calcium Acetate [PhosLo] 3 cap PO TID 03/22/21 [History] oxyCODONE 5 mg PO Q8H PRN 03/22/21 [History] Past Medical History - Past Health History Medical/Surgical History: Denies Medical/Surgical History HEENT History: Reports: None Cardiovascular History: Reports: Heart Failure, Hypertension Respiratory History: Reports: None Gastrointestinal History: Reports: Cirrhosis, GERD, GI Bleed, Hepatitis, Other (See Below) Other Gastrointestinal History: Hepatitis C Genitourinary History: Reports: Acute Renal Failure, Chronic Renal Insuffiency, Dialysis Musculoskeletal History: Reports: Other (See Below) Other Musculoskeletal History: many muscle surgeries; INJURY OF L SHOULDER Neurological History: Reports: Concussion, Head Trauma, Neuropathy, Diabetic Psychiatric History: Reports: Addiction, Other (See Below) Other Psychiatric History: ALCOHOL & NICOTINE HABITUATION Endocrine/Metabolic History: Reports: Diabetes, Type I, Obesity/BMI 30+ Hematologic History: Reports: None Immunologic History: Reports: Other (See Below) Other Immunologic History: HX OF MRSA Oncologic (Cancer) History: Reports: None Dermatologic History: Reports: Cellulitis, Other (See Below) Other Dermatologic History: WOUND OF LEG REQUIRED DEBRIBEMENT; ABCESS ON BACK REQUIRED I & D; ABCESS RIGHT HAND - Infectious Disease History Infectious Disease History: Reports: Hepatitis C, MRSA Other Infectious Disease History: PATIENT HAS LEARNING DISABILITY, POOR HISTORIAN - Past Surgical History Head Surgeries/Procedures: Reports: None HEENT Surgical History: Reports: None Cardiovascular Surgical History: Reports: None Respiratory Surgical History: Reports: None GI Surgical History: Reports: EGD Male Surgical History: Reports: None Endocrine Surgical History: Reports: None Neurological Surgical History: Reports: None Musculoskeletal Surgical History: Reports: Other (See Below) Other Musculoskeletal Surgeries/Procedures:: left great toe amputation Oncologic Surgical History: Reports: None Social & Family History - Family History Family Medical History: No Pertinent Family History - Tobacco Use Tobacco Use Status *Q: Current Status Unknown Years of Tobacco use: 20 Packs/Tins Daily: 1 - Caffeine Use Caffeine Use: Reports: Coffee - Recreational Drug Use Recreational Drug Use: Yes Drug Use in Last 12 Months: Yes Recreational Drug Type: Reports: Marijuana/Hashish Recreational Drug Use Frequency: Socially - Living Situation & Occupation Living situation: Reports: with Family (Lives with his sister.) Occupation: Disabled H&P Review of Systems - Review of Systems: Review Of Systems: See Below Review of Systems Comment:: Jose is a 40-year-old man who presented to the ER with a severe cellulitis/abscess on his left thigh. Our ER provider contacted [facility] in [place], who accepted the patient for transfer. Unfortunately they have no beds available, so he needs to be admitted overnight in observation until he can be transferred in the morning. Patient reports that this first occurred about 7 days ago, he noted this reddened painful spot on his left thigh. He went in 2 days ago to clinic, where they did an I&D of this. They did obtain some purulent sputum and cultured this. He does note that he has a history of MRSA infections in the past. He states that this lesion is very painful, that he been having difficulty taking care of himself because of the level of pain involved. He otherwise has been feeling well, no fevers or chills, no recent weight gain or weight loss. Of note, Jose has end-stage renal disease, and is currently a dialysis patient. Exam - Exam Exam: See Below (Will be done shortly) - Vital Signs Vital Signs: Last Vital Signs Temp 97.9 F 03/23/21 07:54 Pulse 69 03/23/21 07:54 Resp 18 03/23/21 07:54 BP 99/59 L 03/23/21 08:50 Pulse Ox 96 03/23/21 07:54 Weight: 227 lb 9.6 oz - Exam Physical Exam Comments:: General: Jose is a 40-year-old man in no acute distress Neck: Supple, no lymphadenopathy Heart: Regular rate and rhythm, no murmurs Lungs: Clear to auscultation throughout Left thigh: He has a significant area of erythema and induration extending out further from a 2 x 2 centimeter open wound on his left thigh. There is no streaking of the rest of his leg. - Patient Data Lab Results Last 24 hrs: Laboratory Results - last 24 hr 03/22/21 03/22/21 03/22/21 Range/Units 11:34 13:16 16:53 WBC (5.0-10.0) 10^3/uL RBC (4.6-6.2) 10^6/uL Hgb (14.0-18.0) g/dL Hct (40.0-54.0) % MCV (80-100) fL MCH (27.0-34.0) pg MCHC (33.0-35.0) g/dL Plt Count (150-450) 10^3/uL Sodium (136-145) mmol/L Potassium (3.5-5.1) mmol/L Chloride (98-107) mmol/L Carbon Dioxide (21-32) mmol/L Anion Gap (7-13) mEq/L BUN (7-18) mg/dL Creatinine (0.70-1.30) mg/dL Est Cr Clr Drug Dosing mL/min Estimated GFR (MDRD) BUN/Creatinine Ratio (No establ ref range) Glucose (70-99) mg/dL POC Glucose 98 105 H (70-99) mg/dL Calcium (8.5-10.1) mg/dL Total Bilirubin (0.2-1.0) mg/dL AST (15-37) U/L ALT (16-63) U/L Alkaline Phosphatase (46-116) U/L Total Protein (6.4-8.2) g/dL Albumin (3.4-5.0) g/dL Globulin Albumin/Globulin Ratio SARS-CoV-2 RNA (KATT) Negative (NEGATIVE) 03/22/21 03/23/21 03/23/21 Range/Units 20:41 05:25 05:25 WBC 7.8 (5.0-10.0) 10^3/uL RBC 4.41 L (4.6-6.2) 10^6/uL Hgb 12.9 L (14.0-18.0) g/dL Hct 40.6 (40.0-54.0) % MCV 92.1 (80-100) fL MCH 29.3 (27.0-34.0) pg MCHC 31.8 L (33.0-35.0) g/dL Plt Count 344 (150-450) 10^3/uL Sodium 139 (136-145) mmol/L Potassium 4.4 (3.5-5.1) mmol/L Chloride 97 L (98-107) mmol/L Carbon Dioxide 25 (21-32) mmol/L Anion Gap 21.4 H (7-13) mEq/L BUN 43 H (7-18) mg/dL Creatinine 8.31 H* D (0.70-1.30) mg/dL Est Cr Clr Drug Dosing 13.09 mL/min Estimated GFR (MDRD) 7 BUN/Creatinine Ratio 5.2 (No establ ref range) Glucose 98 (70-99) mg/dL POC Glucose 123 H (70-99) mg/dL Calcium 8.6 (8.5-10.1) mg/dL Total Bilirubin 0.7 (0.2-1.0) mg/dL AST 13 L (15-37) U/L ALT 25 (16-63) U/L Alkaline Phosphatase 71 (46-116) U/L Total Protein 7.9 (6.4-8.2) g/dL Albumin 3.7 (3.4-5.0) g/dL Globulin 4.2 Albumin/Globulin Ratio 0.9 SARS-CoV-2 RNA (KATT) (NEGATIVE) 03/23/21 03/23/21 Range/Units 07:34 11:27 WBC (5.0-10.0) 10^3/uL RBC (4.6-6.2) 10^6/uL Hgb (14.0-18.0) g/dL Hct (40.0-54.0) % MCV (80-100) fL MCH (27.0-34.0) pg MCHC (33.0-35.0) g/dL Plt Count (150-450) 10^3/uL Sodium (136-145) mmol/L Potassium (3.5-5.1) mmol/L Chloride (98-107) mmol/L Carbon Dioxide (21-32) mmol/L Anion Gap (7-13) mEq/L BUN (7-18) mg/dL Creatinine (0.70-1.30) mg/dL Est Cr Clr Drug Dosing mL/min Estimated GFR (MDRD) BUN/Creatinine Ratio (No establ ref range) Glucose (70-99) mg/dL POC Glucose 93 93 (70-99) mg/dL Calcium (8.5-10.1) mg/dL Total Bilirubin (0.2-1.0) mg/dL AST (15-37) U/L ALT (16-63) U/L Alkaline Phosphatase (46-116) U/L Total Protein (6.4-8.2) g/dL Albumin (3.4-5.0) g/dL Globulin Albumin/Globulin Ratio SARS-CoV-2 RNA (KATT) (NEGATIVE) Result Diagrams: 03/23/21 05:25 03/23/21 05:25 Charanjit Results Last 24 hrs: Microbiology 03/22/21 11:29 Aerobic Blood Culture - Preliminary Blood - Arm, Right NO GROWTH AFTER 1 DAY Anaerobic Blood Culture - Preliminary NO GROWTH AFTER 1 DAY 03/22/21 11:21 Aerobic Blood Culture - Preliminary Blood - Venous - Iv Start NO GROWTH AFTER 1 DAY Anaerobic Blood Culture - Preliminary NO GROWTH AFTER 1 DAY - Problem List (1) Abscess SNOMED Code(s): 846645858 ICD Code: L02.91 - CUTANEOUS ABSCESS, UNSPECIFIED Status: Acute Current Visit: No (2) ESRD on hemodialysis SNOMED Code(s): 130094513 ICD Code: N18.6 - END STAGE RENAL DISEASE; Z99.2 - DEPENDENCE ON RENAL DIALYSIS Status: Acute Current Visit: No (3) History of MRSA infection SNOMED Code(s): 998906237, 629767201 ICD Code: Z86.14 - PERSONAL HISTORY OF METHICILLIN RESIS STAPH INFECTION Status: Acute Current Visit: No Problem List Initiated/Reviewed/Updated: Yes Orders Last 24hrs: Active Orders 24 hr Category Date Time Status Patient Status [ADT] Routine ADT 03/22/21 18:09 Active Blood Glucose Check, Bedside [RC] QIDACANDBED Care 03/22/21 21:19 Active Intake and Output [RC] 06,14,22 Care 03/22/21 18:24 Active Oxygen Therapy [RC] PRN Care 03/22/21 18:23 Active Up ad Yuridia [RC] ASDIRECTED Care 03/22/21 18:23 Active VTE/DVT Education [RC] 08,20 Care 03/22/21 18:23 Active Vital Signs [RC] 20,04,12 Care 03/22/21 18:23 Active Late Tray [DIET] Routine Diet 03/22/21 13:04 Active Regular Diet [DIET] Diet 03/23/21 Breakfast Active CULTURE BLOOD [BC] Stat Lab 03/22/21 11:29 Results Amitriptyline [Elavil] Med 03/22/21 21:00 Active 25 mg PO BEDTIME Bumetanide [Bumex] Med 03/22/21 19:00 Active 3 mg PO BIDDIURETIC Calcium Acetate [PhosLo] Med 03/22/21 21:00 Pending 3 cap PO TID Famotidine [Pepcid] Med 03/22/21 19:00 Active 20 mg PO BID Gabapentin [Neurontin] Med 03/22/21 21:00 Active 300 mg PO BID Insulin Glarg,Human.Rec.Analog [LantUS] Med 03/22/21 21:00 Active 6 unit SUBCUT BEDTIME Insulin Lispro [HumaLOG] Med 03/22/21 21:00 Active 6 unit SUBCUT WITHMEALSANDBED Losartan [Cozaar] Med 03/23/21 09:00 Active 100 mg PO DAILY Metoprolol Succinate [Toprol XL] Med 03/22/21 21:00 Active 200 mg PO BEDTIME Sodium Chloride 0.9% [Saline Flush] Med 03/22/21 18:36 Active 10 ml FLUSH ASDIRECTED PRN Sofosbuvir/Velpatasvir [Sofosbuvir-Velpatasvir 400-100] Med 03/23/21 09:00 Pending 1 tab PO DAILY amLODIPine [Norvasc] Med 03/22/21 21:00 Active 10 mg PO BEDTIME fentaNYL [Sublimaze] Med 03/22/21 18:30 Active 50 mcg IVPUSH Q2H hydrALAZINE [Apresoline] Med 03/22/21 21:00 Active 100 mg PO BID metOLazone [Zaroxolyn] Med 03/23/21 09:00 Active 2.5 mg PO DAILY rOPINIRole [Requip] Med 03/22/21 21:00 Active 2 mg PO BEDTIME Saline Lock Insert [OM.PC] Routine Oth 03/22/21 18:36 Ordered Resuscitation Status Routine Resus Stat 03/22/21 18:23 Ordered Medication Orders Amitriptyline HCl (Amitriptyline 25 Mg Tab) 25 mg PO BEDTIME [facility] Last Admin: 03/22/21 20:45 Dose: 25 mg Documented by: SUSY Amlodipine Besylate (Amlodipine 5 Mg Tab) 10 mg PO BEDTIME [facility] Last Admin: 03/22/21 20:43 Dose: 10 mg Documented by: SUSY Bumetanide (Bumetanide 1 Mg Tab) 3 mg PO BIDDIURETIC [facility] Last Admin: 03/23/21 08:51 Dose: 3 mg Documented by: Admin: 03/22/21 19:43 Dose: 3 mg Documented by: SUSY Famotidine (Famotidine 20 Mg Tab) 20 mg PO BID [facility] Last Admin: 03/23/21 08:49 Dose: 20 mg Documented by: Admin: 03/22/21 20:54 Dose: Not Given Documented by: Admin: 03/22/21 19:43 Dose: 20 mg Documented by: SUSY Fentanyl (Fentanyl 100 Mcg/2 Ml Sdv) 50 mcg IVPUSH Q2H [facility] Last Admin: 03/23/21 11:53 Dose: 50 mcg Documented by: Admin: 03/23/21 10:58 Dose: Not Given Documented by: Admin: 03/23/21 09:07 Dose: 50 mcg Documented by: Admin: 03/23/21 05:55 Dose: 50 mcg Documented by: Admin: 03/23/21 04:38 Dose: Not Given Documented by: Admin: 03/23/21 02:30 Dose: 50 mcg Documented by: Admin: 03/23/21 01:44 Dose: Not Given Documented by: Admin: 03/22/21 23:31 Dose: 50 mcg Documented by: Admin: 03/22/21 21:33 Dose: 50 mcg Documented by: Admin: 03/22/21 19:40 Dose: 50 mcg Documented by: SUSY Gabapentin (Gabapentin 300 Mg Cap) 300 mg PO BID [facility] Last Admin: 03/23/21 08:49 Dose: 300 mg Documented by: Admin: 03/22/21 20:44 Dose: 300 mg Documented by: SUSY Hydralazine HCl (Hydralazine 25 Mg Tab) 100 mg PO BID [facility] Last Admin: 03/23/21 08:50 Dose: 100 mg Documented by: Admin: 03/22/21 20:44 Dose: 100 mg Documented by: SUSY Insulin Glargine (Insulin Glarg,Human.Rec.Analog 100 Unit/Ml) 6 unit SUBCUT BEDTIME [facility] Last Admin: 03/22/21 20:45 Dose: 6 units Documented by: SUSY Insulin Human Lispro (Insulin Lispro 100 Units/Ml 3 Ml Vial) 6 unit SUBCUT WITHMEALSANDBED [facility] Last Admin: 03/23/21 12:13 Dose: Not Given Documented by: Admin: 03/23/21 08:53 Dose: Not Given Documented by: Admin: 03/22/21 21:16 Dose: Not Given Documented by: SUSY Losartan Potassium (Losartan 50 Mg Tab) 100 mg PO DAILY [facility] Last Admin: 03/23/21 08:50 Dose: 100 mg Documented by: BEA Metolazone (Metolazone 2.5 Mg Tab) 2.5 mg PO DAILY [facility] Last Admin: 03/23/21 08:49 Dose: 2.5 mg Documented by: BEA Metoprolol Succinate (Metoprolol Succinate 50 Mg Tab.Er) 200 mg PO BEDTIME [facility] Last Admin: 03/22/21 20:43 Dose: 200 mg Documented by: SUSY Non-Formulary Medication (Calcium Acetate [Phoslo]) 3 cap PO TID [facility] Non-Formulary Medication (Sofosbuvir/Velpatasvir [Sofosbuvir-Velpatasvir 400- 100]) 1 tab PO DAILY [facility] Ropinirole HCl (Ropinirole 2 Mg Tab) 2 mg PO BEDTIME [facility] Last Admin: 03/22/21 20:44 Dose: 2 mg Documented by: SUSY Sodium Chloride (Sodium Chloride 0.9% 10 Ml Syringe) 10 ml FLUSH ASDIRECTED PRN PRN Reason: Keep Vein Open Assessment/Plan Comment:: Assessment: 1. 40-year-old man with end-stage renal disease on renal dialysis 2. Cellulitis and abscess of the left thigh, worsening Plan: 1. In anticipation of transfer to higher level of care tomorrow, he is admitted to observation 2. Unasyn, 1.5 g IV x1 dose 3. Fentanyl, 50 mcg every hour as needed for pain 4. Recheck labs and reassess clinically in the a.m., he should be ready for transfer whenever [facility] has a bed available
--- NOTE | 2021-03-23 12:32 | PCM.DCSUM1 ---
Discharge Summary - Hospital Course Free Text/Narrative:: Patient is a 40-year-old man admitted last night for observation in anticipation of transfer to higher level of care this morning. He did well overnight, had no significant issues with pain, nursing reports dressing and wound is stable. - Discharge Data Discharge Date: 03/23/21 Discharge Disposition: DC/Tfer to Acute Hospital 02 Condition: Good - Referral to Home Health Primary Care Physician: PCP None - Discharge Diagnosis/Problem(s) (1) Abscess SNOMED Code(s): 567676422 ICD Code: L02.91 - CUTANEOUS ABSCESS, UNSPECIFIED Status: Acute Current Visit: No (2) ESRD on hemodialysis SNOMED Code(s): 369519101 ICD Code: N18.6 - END STAGE RENAL DISEASE; Z99.2 - DEPENDENCE ON RENAL DIALYSIS Status: Acute Current Visit: No (3) History of MRSA infection SNOMED Code(s): 203784028, 904477955 ICD Code: Z86.14 - PERSONAL HISTORY OF METHICILLIN RESIS STAPH INFECTION Status: Acute Current Visit: No - Discharge Plan *PRESCRIPTION DRUG MONITORING PROGRAM REVIEWED*: Not Applicable *COPY OF PRESCRIPTION DRUG MONITORING REPORT IN PATIENT WESLY: Not Applicable Home Medications: Home Meds Aluminum Chloride 100 gm PO DAILY 11/23/20 [History] Amitriptyline [Elavil] 25 mg PO BEDTIME 11/23/20 [History] Biotin/FA/Vit C/Vit B Complex [Nephrocaps] 1 tab PO DAILY 11/23/20 [History] Bumetanide [Bumex] 3 mg PO BID 11/23/20 [History] Famotidine [Pepcid] 20 mg PO BID 11/23/20 [History] Gabapentin [Neurontin] 300 mg PO BID 11/23/20 [History] Insulin Aspart [NovoLOG] 6 unit SQ WITHMEALSANDBED 11/23/20 [History] Insulin Detemir [Levemir Flextouch] 6 unit SQ BEDTIME 11/23/20 [History] Losartan [Cozaar] 100 mg PO DAILY 11/23/20 [History] Metoprolol Succinate 200 mg PO BEDTIME 11/23/20 [History] Sofosbuvir/Velpatasvir [Sofosbuvir-Velpatasvir 400-100] 1 tab PO DAILY 11/23/20 [History] amLODIPine [Norvasc] 10 mg PO BEDTIME 11/23/20 [History] hydrALAZINE [Apresoline] 100 mg PO BID 11/23/20 [History] metOLazone [Metolazone] 2.5 mg PO DAILY 11/23/20 [History] rOPINIRole [Requip] 2 mg PO BEDTIME 11/23/20 [History] Calcium Acetate [PhosLo] 3 cap PO TID 03/22/21 [History] oxyCODONE 5 mg PO Q8H PRN 03/22/21 [History] Forms: ED Department Discharge - Discharge Summary/Plan Comment DC Time >30 min.: No Discharge Summary/Plan Comment: He is transferred to [facility] in [place] for further evaluation and treatment. Dr. Hill has accepted him for the hospitalist service - Patient Data Vitals - Most Recent: Last Vital Signs Temp 98.2 F 03/23/21 12:00 Pulse 67 03/23/21 12:00 Resp 18 03/23/21 12:00 BP 109/65 03/23/21 12:00 Pulse Ox 97 03/23/21 12:00 Weight - Most Recent: 227 lb 9.6 oz I&O - Last 24 hours: Intake & Output 03/22/21 03/23/21 03/23/21 22:59 06:59 14:59 Intake Total 340 291 450 Balance 340 291 450 Lab Results - Last 24 hrs: Laboratory Results - last 24 hr 03/22/21 03/22/21 03/22/21 Range/Units 13:16 16:53 20:41 WBC (5.0-10.0) 10^3/uL RBC (4.6-6.2) 10^6/uL Hgb (14.0-18.0) g/dL Hct (40.0-54.0) % MCV (80-100) fL MCH (27.0-34.0) pg MCHC (33.0-35.0) g/dL Plt Count (150-450) 10^3/uL Sodium (136-145) mmol/L Potassium (3.5-5.1) mmol/L Chloride (98-107) mmol/L Carbon Dioxide (21-32) mmol/L Anion Gap (7-13) mEq/L BUN (7-18) mg/dL Creatinine (0.70-1.30) mg/dL Est Cr Clr Drug Dosing mL/min Estimated GFR (MDRD) BUN/Creatinine Ratio (No establ ref range) Glucose (70-99) mg/dL POC Glucose 98 105 H 123 H (70-99) mg/dL Calcium (8.5-10.1) mg/dL Total Bilirubin (0.2-1.0) mg/dL AST (15-37) U/L ALT (16-63) U/L Alkaline Phosphatase (46-116) U/L Total Protein (6.4-8.2) g/dL Albumin (3.4-5.0) g/dL Globulin Albumin/Globulin Ratio 03/23/21 03/23/21 03/23/21 Range/Units 05:25 05:25 07:34 WBC 7.8 (5.0-10.0) 10^3/uL RBC 4.41 L (4.6-6.2) 10^6/uL Hgb 12.9 L (14.0-18.0) g/dL Hct 40.6 (40.0-54.0) % MCV 92.1 (80-100) fL MCH 29.3 (27.0-34.0) pg MCHC 31.8 L (33.0-35.0) g/dL Plt Count 344 (150-450) 10^3/uL Sodium 139 (136-145) mmol/L Potassium 4.4 (3.5-5.1) mmol/L Chloride 97 L (98-107) mmol/L Carbon Dioxide 25 (21-32) mmol/L Anion Gap 21.4 H (7-13) mEq/L BUN 43 H (7-18) mg/dL Creatinine 8.31 H* D (0.70-1.30) mg/dL Est Cr Clr Drug Dosing 13.09 mL/min Estimated GFR (MDRD) 7 BUN/Creatinine Ratio 5.2 (No establ ref range) Glucose 98 (70-99) mg/dL POC Glucose 93 (70-99) mg/dL Calcium 8.6 (8.5-10.1) mg/dL Total Bilirubin 0.7 (0.2-1.0) mg/dL AST 13 L (15-37) U/L ALT 25 (16-63) U/L Alkaline Phosphatase 71 (46-116) U/L Total Protein 7.9 (6.4-8.2) g/dL Albumin 3.7 (3.4-5.0) g/dL Globulin 4.2 Albumin/Globulin Ratio 0.9 03/23/21 Range/Units 11:27 WBC (5.0-10.0) 10^3/uL RBC (4.6-6.2) 10^6/uL Hgb (14.0-18.0) g/dL Hct (40.0-54.0) % MCV (80-100) fL MCH (27.0-34.0) pg MCHC (33.0-35.0) g/dL Plt Count (150-450) 10^3/uL Sodium (136-145) mmol/L Potassium (3.5-5.1) mmol/L Chloride (98-107) mmol/L Carbon Dioxide (21-32) mmol/L Anion Gap (7-13) mEq/L BUN (7-18) mg/dL Creatinine (0.70-1.30) mg/dL Est Cr Clr Drug Dosing mL/min Estimated GFR (MDRD) BUN/Creatinine Ratio (No establ ref range) Glucose (70-99) mg/dL POC Glucose 93 (70-99) mg/dL Calcium (8.5-10.1) mg/dL Total Bilirubin (0.2-1.0) mg/dL AST (15-37) U/L ALT (16-63) U/L Alkaline Phosphatase (46-116) U/L Total Protein (6.4-8.2) g/dL Albumin (3.4-5.0) g/dL Globulin Albumin/Globulin Ratio EUGENE Results - Last 24 hrs: Microbiology 03/22/21 11:29 Aerobic Blood Culture - Preliminary Blood - Arm, Right NO GROWTH AFTER 1 DAY Anaerobic Blood Culture - Preliminary NO GROWTH AFTER 1 DAY 03/22/21 11:21 Aerobic Blood Culture - Preliminary Blood - Venous - Iv Start NO GROWTH AFTER 1 DAY Anaerobic Blood Culture - Preliminary NO GROWTH AFTER 1 DAY Med Orders - Current: Current Medications Amitriptyline HCl (Amitriptyline 25 Mg Tab) 25 mg PO BEDTIME [facility] [place] Last Admin: 03/22/21 20:45 Dose: 25 mg Documented by: Amlodipine Besylate (Amlodipine 5 Mg Tab) 10 mg PO BEDTIME [facility] [place] Last Admin: 03/22/21 20:43 Dose: 10 mg Documented by: Bumetanide (Bumetanide 1 Mg Tab) 3 mg PO BIDDIURETIC [facility] Last Admin: 03/23/21 08:51 Dose: 3 mg Documented by: Famotidine (Famotidine 20 Mg Tab) 20 mg PO BID [facility] Last Admin: 03/23/21 08:49 Dose: 20 mg Documented by: Fentanyl (Fentanyl 100 Mcg/2 Ml Sdv) 50 mcg IVPUSH Q2H [facility] [place] Last Admin: 03/23/21 11:53 Dose: 50 mcg Documented by: Gabapentin (Gabapentin 300 Mg Cap) 300 mg PO BID [facility] [place] Last Admin: 03/23/21 08:49 Dose: 300 mg Documented by: Hydralazine HCl (Hydralazine 25 Mg Tab) 100 mg PO BID [facility] [place] Last Admin: 03/23/21 08:50 Dose: 100 mg Documented by: Insulin Glargine (Insulin Glarg,Human.Rec.Analog 100 Unit/Ml) 6 unit SUBCUT BEDTIME [facility] [place] Last Admin: 03/22/21 20:45 Dose: 6 units Documented by: Insulin Human Lispro (Insulin Lispro 100 Units/Ml 3 Ml Vial) 6 unit SUBCUT WITHMEALSANDBED [facility] [place] Last Admin: 03/23/21 12:13 Dose: Not Given Documented by: Losartan Potassium (Losartan 50 Mg Tab) 100 mg PO DAILY [facility] [place] Last Admin: 03/23/21 08:50 Dose: 100 mg Documented by: Metolazone (Metolazone 2.5 Mg Tab) 2.5 mg PO DAILY [facility] [place] Last Admin: 03/23/21 08:49 Dose: 2.5 mg Documented by: Metoprolol Succinate (Metoprolol Succinate 50 Mg Tab.Er) 200 mg PO BEDTIME [facility] [place] Last Admin: 03/22/21 20:43 Dose: 200 mg Documented by: Non-Formulary Medication (Calcium Acetate [Phoslo]) 3 cap PO TID [facility] Non-Formulary Medication (Sofosbuvir/Velpatasvir [Sofosbuvir-Velpatasvir 400- 100]) 1 tab PO DAILY [facility] [place] Ropinirole HCl (Ropinirole 2 Mg Tab) 2 mg PO BEDTIME [facility] [place] Last Admin: 03/22/21 20:44 Dose: 2 mg Documented by: Sodium Chloride (Sodium Chloride 0.9% 10 Ml Syringe) 10 ml FLUSH ASDIRECTED PRN PRN Reason: Keep Vein Open Discontinued Medications Acetaminophen (Acetaminophen 325 Mg Tab) 650 mg PO Q4H PRN PRN Reason: Pain (Mild 1-3)/fever Albuterol (Albuterol 0.083% 2.5 Mg/3 Ml Neb Soln) 2.5 mg NEB Q2H PRN PRN Reason: Dyspnea Fentanyl (Fentanyl 100 Mcg/2 Ml Sdv) 50 mcg IVPUSH ONETIME ONE Stop: 03/22/21 11:10 Last Admin: 03/22/21 11:23 Dose: 50 mcg Documented by: Fentanyl (Fentanyl 100 Mcg/2 Ml Sdv) 50 mcg IVPUSH ONETIME ONE Stop: 03/22/21 14:44 Last Admin: 03/22/21 14:57 Dose: 50 mcg Documented by: Ampicillin Sodium/Sulbactam (Sodium 1.5 gm/ Sodium Chloride) 100 mls @ 200 mls/hr IV ONETIME ONE Stop: 03/22/21 18:00 Last Admin: 03/22/21 19:39 Dose: 200 mls/hr Documented by:
== END 2021-03-23 12:20 ==
LOC: DL.ED 10:06 → EEVIPCON 18:09 → DL.MS 18:09
PROVIDERS: ADMIT Family Medicine; ATTEND Family Medicine
DX: L02.416 Cutaneous abscess of left lower limb (principal); L03.116 Cellulitis of left lower limb; I13.2 Hypertensive heart and chronic kidney disease with heart failure and with stage 5 chronic kidney disease, or end stage renal disease; I50.9 Heart failure, unspecified; N18.6 End stage renal disease; E10.22 Type 1 diabetes mellitus with diabetic chronic kidney disease; E10.40 Type 1 diabetes mellitus with diabetic neuropathy, unspecified; E66.9 Obesity, unspecified; F17.210 Nicotine dependence, cigarettes, uncomplicated; Z86.14 Personal history of Methicillin resistant Staphylococcus aureus infection; Z88.8 Allergy status to other drugs, medicaments and biological substances; Z79.899 Other long term (current) drug therapy; Z99.2 Dependence on renal dialysis; Z20.822 Contact with and (suspected) exposure to COVID-19
CPT/HCPCS: 36415; 80053; 82947; 83605; 85025; 85027; 86140; 87040; 96374; 96376; 99283; 99284; A9270; J0295; J1815; J3010; U0002; 96365; 96375; G0378

== ENCOUNTER 2021-05-29 09:24 | Emergency (ER) | payer MEDICARE, MEDICAID ==
[2021-05-29 09:55] VITALS: BP 127/93; PULSE 84
--- NOTE | 2021-05-29 10:14 | EDM.PDOC ---
ED HPI GENERAL MEDICAL PROBLEM - General Stated Complaint: SENT FROM DIALYSIS Time Seen by Provider: 05/29/21 09:55 Source of Information: Reports: Patient, RN, RN Notes Reviewed History Limitations: Reports: No Limitations - History of Present Illness INITIAL COMMENTS - FREE TEXT/NARRATIVE: Jose is a 40 y/o male who presents to the ED from hemodialysis with complaints of redness and pain to a lesion on his left anterior leg. The patient reports he first noted the lesion about one week ago. He has been applying bacitracin and bandages daily, but he is now out of both. The patient was hospitalized about two months ago following an abscess that failed outpatient monotherapy with doxycycline. The patient denies fever, palpitations, wound drainage, nausea, vomiting, or diarrhea. He does attest to transient shaking chills. He has been able to eat and drink, per normal. - Related Data Allergies Allergy/AdvReac Type Severity Reaction Status Date / Time ibuprofen Allergy Mild Difficulty Verified 05/29/21 09:52 Breathing acetaminophen AdvReac Mild Liver Verified 05/29/21 09:52 Problems Home Meds: Home Meds Aluminum Chloride 100 gm PO DAILY 11/23/20 [History] Amitriptyline [Elavil] 25 mg PO BEDTIME 11/23/20 [History] Biotin/FA/Vit C/Vit B Complex [Nephrocaps] 1 tab PO DAILY 11/23/20 [History] Bumetanide [Bumex] 3 mg PO BID 11/23/20 [History] Famotidine [Pepcid] 20 mg PO BID 11/23/20 [History] Gabapentin [Neurontin] 300 mg PO BID 11/23/20 [History] Insulin Aspart [NovoLOG] 6 unit SQ WITHMEALSANDBED 11/23/20 [History] Insulin Detemir [Levemir Flextouch] 6 unit SQ BEDTIME 11/23/20 [History] Losartan [Cozaar] 100 mg PO DAILY 11/23/20 [History] Metoprolol Succinate 200 mg PO BEDTIME 11/23/20 [History] Sofosbuvir/Velpatasvir [Sofosbuvir-Velpatasvir 400-100] 1 tab PO DAILY 11/23/20 [History] amLODIPine [Norvasc] 10 mg PO BEDTIME 11/23/20 [History] hydrALAZINE [Apresoline] 100 mg PO BID 11/23/20 [History] metOLazone [Metolazone] 2.5 mg PO DAILY 11/23/20 [History] rOPINIRole [Requip] 2 mg PO BEDTIME 11/23/20 [History] Calcium Acetate [PhosLo] 3 cap PO TID 03/22/21 [History] oxyCODONE 5 mg PO Q8H PRN 03/22/21 [History] Past Medical History - Past Health History Medical/Surgical History: Denies Medical/Surgical History HEENT History: Reports: None Cardiovascular History: Reports: Heart Failure, Hypertension Respiratory History: Reports: None Gastrointestinal History: Reports: Cirrhosis, GERD, GI Bleed, Hepatitis, Other (See Below) Other Gastrointestinal History: Hepatitis C Genitourinary History: Reports: Acute Renal Failure, Chronic Renal Insuffiency, Dialysis Musculoskeletal History: Reports: Other (See Below) Other Musculoskeletal History: many muscle surgeries; INJURY OF L SHOULDER Neurological History: Reports: Concussion, Head Trauma, Neuropathy, Diabetic Psychiatric History: Reports: Addiction, Other (See Below) Other Psychiatric History: ALCOHOL & NICOTINE HABITUATION Endocrine/Metabolic History: Reports: Diabetes, Type I, Obesity/BMI 30+ Hematologic History: Reports: None Immunologic History: Reports: Other (See Below) Other Immunologic History: HX OF MRSA Oncologic (Cancer) History: Reports: None Dermatologic History: Reports: Cellulitis, Other (See Below) Other Dermatologic History: WOUND OF LEG REQUIRED DEBRIBEMENT; ABCESS ON BACK REQUIRED I & D; ABCESS RIGHT HAND - Infectious Disease History Infectious Disease History: Reports: Hepatitis C, MRSA Other Infectious Disease History: PATIENT HAS LEARNING DISABILITY, POOR HISTORIAN - Past Surgical History Head Surgeries/Procedures: Reports: None HEENT Surgical History: Reports: None Cardiovascular Surgical History: Reports: None Respiratory Surgical History: Reports: None GI Surgical History: Reports: EGD Male Surgical History: Reports: None Endocrine Surgical History: Reports: None Neurological Surgical History: Reports: None Musculoskeletal Surgical History: Reports: Other (See Below) Other Musculoskeletal Surgeries/Procedures:: left great toe amputation Oncologic Surgical History: Reports: None Social & Family History - Family History Family Medical History: No Pertinent Family History - Caffeine Use Caffeine Use: Reports: Coffee - Recreational Drug Use Recreational Drug Use: No - Living Situation & Occupation Living situation: Reports: with Family (Lives with his sister.) Occupation: Disabled ED [employer] - Review of Systems Review Of Systems: Comprehensive ROS is negative, except as noted in HPI. ED EXAM, SKIN/RASH Exam: See Below Exam Limited By: No Limitations General Appearance: Alert, No Apparent Distress Eye Exam: Bilateral Eye: EOMI, Normal Inspection, PERRL (3mm) Ears: Normal External Exam, Hearing Grossly Normal Nose: Normal Inspection, Normal Mucosa, No Blood Throat/Mouth: Normal Inspection, Normal Lips, Normal Teeth, Normal Gums, Normal Oropharynx, Normal Voice, No Airway Compromise Head: Atraumatic, Normocephalic Neck: Normal Inspection, Supple, Non-Tender, Full Range of Motion Respiratory/Chest: No Respiratory Distress, Lungs Clear, Normal Breath Sounds, No Accessory Muscle Use Cardiovascular: Normal Peripheral Pulses, Regular Rate, Rhythm, No Edema, No Gallop, No JVD, No Murmur, No Rub Peripheral Pulses: 2+: Radial (L), Radial (R), Dorsalis Pedis (L), Dorsalis Pedis (R) GI/Abdominal: Normal Bowel Sounds, Soft, Non-Tender, No Distention, No Abnormal Bruit, No Mass, Pelvis Stable (Male) Exam: Deferred Rectal (Males) Exam: Deferred Back Exam: Normal Inspection, Full Range of Motion Extremities: Normal Range of Motion, Normal Capillary Refill, Leg Pain (To wound on right anterior lower leg), Increased Warmth (To lesion on right anterior lower leg), Redness (To lesion on right anterior lower leg). No: Joint Swelling, Mottled, Pallor Neurological: Alert, Oriented, CN II-XII Intact, Normal Cognition, Normal Gait, No Motor/Sensory Deficits Psychiatric: Normal Affect, Normal Mood Skin: Wound/Incision (1cm x 1.5cm flaky lesions to right anterior lower leg with 1cm of circumferential erythema) Location, Skin: Lower Extremity, Right Characteristics: Erythematous Associated features: Warmth, Tenderness, Inflammation. No: Swelling, Crusting, Weeping Lymphatic: No Adenopathy Course - Vital Signs Last Recorded V/S: Last Vital Signs Temp 97.8 F 05/29/21 09:53 Pulse 84 05/29/21 09:53 Resp 16 05/29/21 09:53 BP 127/93 H 05/29/21 09:53 Pulse Ox 99 05/29/21 09:53 - Re-Assessments/Exams Free Text/Narrative Re-Assessment/Exam: 05/29/21 Findings of examination, reviewed with patient. Will treat cellulitis with doxycycline and clindamycin. Discussed supportive cares for wound care. Red flag signs and symptoms which would warrant reevaluation reviewed. Patient verbalized understanding and agreement with the plan of care. Departure - Departure Time of Disposition: 10:14 Disposition: Home, Self-Care 01 Condition: Good Clinical Impression: History of MRSA infection, Cellulitis of right lower leg, ESRD on hemodialysis - Discharge Information *PRESCRIPTION DRUG MONITORING PROGRAM REVIEWED*: Not Applicable *COPY OF PRESCRIPTION DRUG MONITORING REPORT IN PATIENT WESLY: Not Applicable Instructions: Cellulitis, Adult, [id number] Forms: ED Department Discharge Additional Instructions: Rx: Clindamycin Rx: doxycycline 1.) Obtain your antibiotics from any pharmacy and start taking them right away, as prescribed. 2.) You may use your previously prescribed pain medications for pain to right leg. 3.) Eat a yogurt each day while taking antibiotics for gut health. 4.) Follow up with your primary care provider, or return to the emergency department, with fever, shaking chills, or worsening symptoms with two days of antibiotics. Sepsis Event Note (ED) - Evaluation Sepsis Screening Result: No Definite Risk - Focused Exam Vital Signs: Vital Signs Temp Pulse Resp BP Pulse Ox 05/29/21 09:53 97.8 F 84 16 127/93 H 99
== END 2021-05-29 10:43 | disposition home or self-care (01) ==
LOC: DL.ED 09:24
DX: L03.115 Cellulitis of right lower limb (principal); I13.2 Hypertensive heart and chronic kidney disease with heart failure and with stage 5 chronic kidney disease, or end stage renal disease; E10.22 Type 1 diabetes mellitus with diabetic chronic kidney disease; N18.6 End stage renal disease; I50.9 Heart failure, unspecified; K21.9 Gastro-esophageal reflux disease without esophagitis; E10.40 Type 1 diabetes mellitus with diabetic neuropathy, unspecified; E66.9 Obesity, unspecified; Z68.35 Body mass index [BMI] 35.0-35.9, adult; Z99.2 Dependence on renal dialysis; Z88.6 Allergy status to analgesic agent; Z79.899 Other long term (current) drug therapy
CPT/HCPCS: 99283

== ENCOUNTER 2021-06-09 23:30 | Emergency (ER) | payer MEDICARE, MEDICAID ==
[2021-06-09] MEDS ORDERED: Ondansetron 4 MG/2 ML SDV IVPUSH ONE (23:56)
[2021-06-10 00:01] VITALS: BP 142/77; PULSE 100
[2021-06-10] MEDS ORDERED: Metoclopramide 10 MG/2 ML SDV IM ONE (01:56)
--- NOTE | 2021-06-10 02:14 | EDM.PDOC ---
ED HPI GENERAL MEDICAL PROBLEM - General Chief Complaint: Abdominal Pain Stated Complaint: AMBULANCE Time Seen by Provider: 06/09/21 23:57 Source of Information: Reports: Patient, RN History Limitations: Reports: No Limitations - History of Present Illness INITIAL COMMENTS - FREE TEXT/NARRATIVE: 40 year old male who presents to the ED via EMS for complaints of nausea/vomiting and diarrhea for one day. Patient reports eating [place] fried chicken one night prior to his symptoms. He has ESRD and had dialysis about 11 hours prior to ED admission and reports he was vomiting and had diarrhea during dialysis. He states he has not been able to keep anything down, he admits to abdominal discomfort from vomiting. He denies any fever/chills, chest pain, SOB, palpitations at this time. He denies hematemesis or bloody stools. Middle Abdomen Pain Score (Numeric/FACES): 8 - Related Data Allergies Allergy/AdvReac Type Severity Reaction Status Date / Time ibuprofen Allergy Mild Difficulty Verified 05/29/21 09:52 Breathing acetaminophen AdvReac Mild Liver Verified 05/29/21 09:52 Problems Home Meds: Home Meds Aluminum Chloride 100 gm PO DAILY 11/23/20 [History] Amitriptyline [Elavil] 25 mg PO BEDTIME 11/23/20 [History] Biotin/FA/Vit C/Vit B Complex [Nephrocaps] 1 tab PO DAILY 11/23/20 [History] Bumetanide [Bumex] 3 mg PO BID 11/23/20 [History] Famotidine [Pepcid] 20 mg PO BID 11/23/20 [History] Gabapentin [Neurontin] 300 mg PO BID 11/23/20 [History] Insulin Aspart [NovoLOG] 6 unit SQ WITHMEALSANDBED 11/23/20 [History] Insulin Detemir [Levemir Flextouch] 6 unit SQ BEDTIME 11/23/20 [History] Losartan [Cozaar] 100 mg PO DAILY 11/23/20 [History] Metoprolol Succinate 200 mg PO BEDTIME 11/23/20 [History] Sofosbuvir/Velpatasvir [Sofosbuvir-Velpatasvir 400-100] 1 tab PO DAILY 11/23/20 [History] amLODIPine [Norvasc] 10 mg PO BEDTIME 11/23/20 [History] hydrALAZINE [Apresoline] 100 mg PO BID 11/23/20 [History] metOLazone [Metolazone] 2.5 mg PO DAILY 11/23/20 [History] rOPINIRole [Requip] 2 mg PO BEDTIME 11/23/20 [History] Calcium Acetate [PhosLo] 3 cap PO TID 03/22/21 [History] oxyCODONE 5 mg PO Q8H PRN 03/22/21 [History] Past Medical History - Past Health History Medical/Surgical History: Denies Medical/Surgical History HEENT History: Reports: None Cardiovascular History: Reports: Heart Failure, Hypertension Respiratory History: Reports: None Gastrointestinal History: Reports: Cirrhosis, GERD, GI Bleed, Hepatitis, Other (See Below) Other Gastrointestinal History: Hepatitis C Genitourinary History: Reports: Acute Renal Failure, Chronic Renal Insuffiency, Dialysis Musculoskeletal History: Reports: Other (See Below) Other Musculoskeletal History: many muscle surgeries; INJURY OF L SHOULDER Neurological History: Reports: Concussion, Head Trauma, Neuropathy, Diabetic Psychiatric History: Reports: Addiction, Other (See Below) Other Psychiatric History: ALCOHOL & NICOTINE HABITUATION Endocrine/Metabolic History: Reports: Diabetes, Type I, Obesity/BMI 30+ Hematologic History: Reports: None Immunologic History: Reports: Other (See Below) Other Immunologic History: HX OF MRSA Oncologic (Cancer) History: Reports: None Dermatologic History: Reports: Cellulitis, Other (See Below) Other Dermatologic History: WOUND OF LEG REQUIRED DEBRIBEMENT; ABCESS ON BACK REQUIRED I & D; ABCESS RIGHT HAND - Infectious Disease History Infectious Disease History: Reports: Hepatitis C, MRSA Other Infectious Disease History: PATIENT HAS LEARNING DISABILITY, POOR HISTORIA N - Past Surgical History Head Surgeries/Procedures: Reports: None HEENT Surgical History: Reports: None Cardiovascular Surgical History: Reports: None Respiratory Surgical History: Reports: None GI Surgical History: Reports: EGD Male Surgical History: Reports: None Endocrine Surgical History: Reports: None Neurological Surgical History: Reports: None Musculoskeletal Surgical History: Reports: Other (See Below) Other Musculoskeletal Surgeries/Procedures:: left great toe amputation Oncologic Surgical History: Reports: None Social & Family History - Family History Family Medical History: No Pertinent Family History - Tobacco Use Tobacco Use Status *Q: Current Every Day Tobacco User Years of Tobacco use: 10 Packs/Tins Daily: 1 - Caffeine Use Caffeine Use: Reports: Coffee, Soda - Recreational Drug Use Recreational Drug Use: No - Living Situation & Occupation Living situation: Reports: with Family (Lives with his sister.) Occupation: Disabled ED ROS GENERAL - Review of Systems Review Of Systems: Comprehensive ROS is negative, except as noted in HPI. ED EXAM, GENERAL - Physical Exam Exam: See Below Exam Limited By: No Limitations General Appearance: Alert, Anxious, Moderate Distress Eye Exam: Bilateral Eye: EOMI, PERRL Ears: Normal External Exam, Normal Canal, Hearing Grossly Normal, Normal TMs Nose: Other Throat/Mouth: Normal Oropharynx, Normal Voice, No Airway Compromise Head: Atraumatic, Normocephalic Neck: Normal Inspection, Supple, Non-Tender, Full Range of Motion Respiratory/Chest: No Respiratory Distress, Lungs Clear, Normal Breath Sounds, No Accessory Muscle Use, Chest Non-Tender Cardiovascular: Normal Peripheral Pulses, Regular Rate, Rhythm, No Edema, No Gallop, No JVD, No Murmur, No Rub GI/Abdominal: Normal Bowel Sounds, Soft, Non-Tender, Other (vomiting twice) Psychiatric: Anxious Skin Exam: Warm Lymphatic: No Adenopathy Course - Vital Signs Last Recorded V/S: Last Vital Signs Temp 98.6 F 06/09/21 23:59 Pulse 100 06/09/21 23:59 Resp 20 06/09/21 23:59 BP 142/77 H 06/09/21 23:59 Pulse Ox 100 06/09/21 23:59 - Orders/Labs/Meds Labs: Laboratory Tests 06/09/21 06/09/21 Range/Units 23:53 23:53 WBC 10.5 H (5.0-10.0) 10^3/uL RBC 4.91 (4.6-6.2) 10^6/uL Hgb 14.7 D (14.0-18.0) g/dL Hct 45.0 (40.0-54.0) % MCV 91.6 (80-100) fL MCH 29.9 (27.0-34.0) pg MCHC 32.7 L (33.0-35.0) g/dL Plt Count 323 (150-450) 10^3/uL Neut % (Auto) 78.1 H (42.2-75.2) % Lymph % (Auto) 10.0 L (20.5-50.1) % Villalba % (Auto) 11.6 H (2-8) % Eos % (Auto) 0.1 L (1.0-3.0) % Baso % (Auto) 0.2 (0.0-1.0) % Sodium 139 (136-145) mmol/L Potassium 4.0 (3.5-5.1) mmol/L Chloride 95 L (98-107) mmol/L Carbon Dioxide 30 (21-32) mmol/L Anion Gap 18.0 H (7-13) mEq/L BUN 27 H (7-18) mg/dL Creatinine 8.52 H* (0.70-1.30) mg/dL Est Cr Clr Drug Dosing 8.70 mL/min Estimated GFR (MDRD) 7 BUN/Creatinine Ratio 3.2 (No establ ref range) Glucose 129 H (70-99) mg/dL Calcium 10.4 H D (8.5-10.1) mg/dL Total Bilirubin 0.8 (0.2-1.0) mg/dL AST 14 L (15-37) U/L ALT 29 (16-63) U/L Alkaline Phosphatase 60 (46-116) U/L Total Protein 8.8 H (6.4-8.2) g/dL Albumin 4.4 (3.4-5.0) g/dL Globulin 4.4 Albumin/Globulin Ratio 1.0 Amylase 58 (25-115) U/L Lipase 97 (73-393) U/L Meds: Medications Discontinued Medications Generic Name Dose Route Start Last Admin Trade Name Freq PRN Reason Stop Dose Admin Metoclopramide HCl 10 mg 06/10/21 01:56 06/10/21 02:04 Metoclopramide 10 Mg/2 Ml Sdv IM 06/10/21 01:57 10 mg ONETIME ONE Administration Ondansetron HCl 4 mg 06/09/21 23:56 06/10/21 00:00 Ondansetron 4 Mg/2 Ml Sdv IVPUSH 06/09/21 23:57 4 mg ONETIME ONE Administration - Re-Assessments/Exams Free Text/Narrative Re-Assessment/Exam: Patient was advised of exam findings, and labs results Ct abdomen. He was administered Zofran with little relief and Reglan with resolution of symptoms. Encouraged patient to began with a bland diet and advanced as tolerated. Also encouraged him to push fluids and rest. Follow up with PCP in one day. Departure - Departure Time of Disposition: 06:01 Disposition: Home, Self-Care 01 Condition: Good Clinical Impression: Gastroenteritis - Discharge Information Instructions: Viral Gastroenteritis, Adult, [id number] Referrals: PCP,None [Primary Care Provider] - Forms: ED Department Discharge Additional Instructions: Encouraged a bland diet and advanced as tolerated. Push fluids as recommened by Nephrology. Follow up with PCP outpatient for back problems. Patient verbalized understanding. Sepsis Event Note (ED) - Evaluation Sepsis Screening Result: No Definite Risk
--- NOTE | 2021-06-10 04:48 | CT ---
PROCEDURE INFORMATION: Exam: CT Abdomen And Pelvis Without Contrast Exam date and time: 06/10/2021 2:23 AM Age: 40 years old Clinical indication: Other: ? Pancreatitus; Patient HX: 8.2 creatnine; Additional info: Nausea/vomiting, abdominal pain TECHNIQUE: Imaging protocol: Computed tomography of the abdomen and pelvis without contrast. Radiation optimization: All CT scans at this facility use at least one of these dose optimization techniques: automated exposure control; mA and/or kV adjustment per patient size (includes targeted exams where dose is matched to clinical indication); or iterative reconstruction. COMPARISON: CT Abdomen Pelvis w Cont 09/02/2017 9:42 PM FINDINGS: Liver: Normal. No mass. Gallbladder and bile ducts: Normal. No calcified stones. No ductal dilation. Pancreas: Normal. No ductal dilation. Spleen: Normal. No splenomegaly. Adrenal glands: Normal. No mass. Kidneys and ureters: Normal. No hydronephrosis. Stomach and bowel: Unremarkable. No obstruction. No mucosal thickening. Appendix: No evidence of appendicitis. Intraperitoneal space: Unremarkable. No free air. No significant fluid collection. Vasculature: Unremarkable. No abdominal aortic aneurysm. Lymph nodes: Unremarkable. No enlarged lymph nodes. Urinary bladder: There is diffuse bladder wall thickening which may be due to bladder outlet obstruction, cystitis, or underdistention. Reproductive: Unremarkable as visualized. Bones/joints: Schmorl's node at the superior endplate of the L4 vertebra. Severe narrowing of the L5-S1 disc space with associated vacuum phenomena and marginal osteophytes. Soft tissues: Bilateral mild gynecomastia. There is a fat-containing umbilical hernia. IMPRESSION: 1. Severe narrowing of the L5-S1 disc space with associated vacuum phenomena and marginal osteophytes. 2. There is diffuse bladder wall thickening which may be due to bladder outlet obstruction, cystitis, or underdistention.
== END 2021-06-10 06:08 | disposition home or self-care (01) ==
LOC: DL.ED 23:30
DX: K52.9 Noninfective gastroenteritis and colitis, unspecified (principal); I13.2 Hypertensive heart and chronic kidney disease with heart failure and with stage 5 chronic kidney disease, or end stage renal disease; E10.22 Type 1 diabetes mellitus with diabetic chronic kidney disease; N18.6 End stage renal disease; I50.9 Heart failure, unspecified; E10.40 Type 1 diabetes mellitus with diabetic neuropathy, unspecified; E66.9 Obesity, unspecified; Z68.41 Body mass index [BMI] 40.0-44.9, adult; Z99.2 Dependence on renal dialysis; Z72.0 Tobacco use; Z88.6 Allergy status to analgesic agent; Z79.899 Other long term (current) drug therapy
CPT/HCPCS: 36415; 74176; 80053; 82150; 83690; 85025; 96372; 96374; 99283; 99285; J2405; J2765

== ENCOUNTER 2021-11-05 22:44 | Emergency (ER) | payer MEDICARE, MEDICAID ==
[2021-11-05] MEDS ORDERED: Furosemide 40 MG/4 ML VIAL IVPUSH ONE (22:50)
[2021-11-05] MEDS ORDERED: Bumetanide 1 MG/4 ML MDV IVPUSH ONE (22:57)
[2021-11-05 23:37] VITALS: BP 177/131; PULSE 117
[2021-11-05] MEDS ORDERED: Labetalol 20 MG/4 ML Syringe IVPUSH ONE (23:37)
[2021-11-05 23:38] LABS: CHLORIDE,CL 102 mmol/L (98-107); SODIUM,NA 139 mmol/L (136-145)
--- NOTE | 2021-11-06 00:45 | CR ---
PROCEDURE INFORMATION: Exam: XR Chest Exam date and time: 11/05/2021 11:07 PM Age: 41 years old Clinical indication: Other: SOB TECHNIQUE: Imaging protocol: XR of the chest. Views: 1 view. Total images: 1 COMPARISON: No relevant prior studies available. FINDINGS: Lungs: Normal pulmonary expansion. Moderate central vascular congestion. Mild bilateral perihilar and basilar interstitial and alveolar opacities suggesting either pulmonary edema or bilateral pulmonary infection/pneumonia. Pleural spaces: Slight thickening of the minor fissure suggesting mild pleural wetting, without jean pleural effusion. No pneumothorax. Heart/Mediastinum: Heart size normal. No tracheal/mediastinal shift. Bones/joints: No acute osseous abnormalities are identified. IMPRESSION: 1. Moderate bilateral perihilar and basilar interstitial and alveolar opacities suggesting either pulmonary edema or bilateral pulmonary infection/pneumonia. 2. Slight thickening of the minor fissure suggesting mild pleural wetting, without jean pleural effusion.
[2021-11-06] MEDS ORDERED: Labetalol 20 MG/4 ML Syringe IVPUSH ONE (02:13)
[2021-11-06] MEDS ORDERED: Calcium Gluconate 10% 1 GM/10 ML SDV IVPUSH ONE (02:38)
[2021-11-06] MEDS ORDERED: 50% Dextrose in Water 50 ML Syringe IVPUSH ONE ×2 (02:41→02:54)
[2021-11-06] MEDS ORDERED: Insulin Regular, Human 100 Units/ML 3 ML Vial IV ONE (02:52)
[2021-11-06] MEDS ORDERED: Glucagon,Human Recombinant 1 MG Vial IM PRN (02:52)
[2021-11-06] MEDS ORDERED: 50% Dextrose in Water 50 ML Syringe IVPUSH PRN (02:52)
[2021-11-06] MEDS ORDERED: Dextrose 10% in Water 500 ML IV ONE (02:55)
--- NOTE | 2021-11-06 03:03 | EDM.PDOC ---
ED HPI GENERAL MEDICAL PROBLEM - General Chief Complaint: Respiratory Problem Stated Complaint: AMBULANCE Time Seen by Provider: 11/05/21 23:35 Source of Information: Reports: Patient, EMS, RN History Limitations: Reports: No Limitations - History of Present Illness INITIAL COMMENTS - FREE TEXT/NARRATIVE: ED with c/o SOB and cough, dialysis patient, states he doesn't think they got enough off with last run. Due for dialysis in am. Increased swelling. No chest pain. No dizziness. Denied fever. No nausea. - Related Data Allergies Allergy/AdvReac Type Severity Reaction Status Date / Time ibuprofen Allergy Mild Difficulty Verified 05/29/21 09:52 Breathing acetaminophen AdvReac Mild Liver Verified 05/29/21 09:52 Problems Home Meds: Home Meds Aluminum Chloride 100 gm PO DAILY 11/23/20 [History] Amitriptyline [Elavil] 25 mg PO BEDTIME 11/23/20 [History] Biotin/FA/Vit C/Vit B Complex [Nephrocaps] 1 tab PO DAILY 11/23/20 [History] Bumetanide [Bumex] 3 mg PO BID 11/23/20 [History] Famotidine [Pepcid] 20 mg PO BID 11/23/20 [History] Gabapentin [Neurontin] 300 mg PO BID 11/23/20 [History] Insulin Aspart [NovoLOG] 6 unit SQ WITHMEALSANDBED 11/23/20 [History] Insulin Detemir [Levemir Flextouch] 6 unit SQ BEDTIME 11/23/20 [History] Losartan [Cozaar] 100 mg PO DAILY 11/23/20 [History] Metoprolol Succinate 200 mg PO BEDTIME 11/23/20 [History] Sofosbuvir/Velpatasvir [Sofosbuvir-Velpatasvir 400-100] 1 tab PO DAILY 11/23/20 [History] amLODIPine [Norvasc] 10 mg PO BEDTIME 11/23/20 [History] hydrALAZINE [Apresoline] 100 mg PO BID 11/23/20 [History] metOLazone [Metolazone] 2.5 mg PO DAILY 11/23/20 [History] rOPINIRole [Requip] 2 mg PO BEDTIME 11/23/20 [History] Calcium Acetate [PhosLo] 3 cap PO TID 03/22/21 [History] oxyCODONE 5 mg PO Q8H PRN 03/22/21 [History] Past Medical History - Past Health History Medical/Surgical History: Denies Medical/Surgical History HEENT History: Reports: None Cardiovascular History: Reports: Heart Failure, Hypertension Respiratory History: Reports: None Gastrointestinal History: Reports: Cirrhosis, GERD, GI Bleed, Hepatitis, Other (See Below) Other Gastrointestinal History: Hepatitis C Genitourinary History: Reports: Acute Renal Failure, Chronic Renal Insuffiency, Dialysis Musculoskeletal History: Reports: Other (See Below) Other Musculoskeletal History: many muscle surgeries; INJURY OF L SHOULDER Neurological History: Reports: Concussion, Head Trauma, Neuropathy, Diabetic Psychiatric History: Reports: Addiction, Other (See Below) Other Psychiatric History: ALCOHOL & NICOTINE HABITUATION Endocrine/Metabolic History: Reports: Diabetes, Type I, Obesity/BMI 30+ Hematologic History: Reports: None Immunologic History: Reports: Other (See Below) Other Immunologic History: HX OF MRSA Oncologic (Cancer) History: Reports: None Dermatologic History: Reports: Cellulitis, Other (See Below) Other Dermatologic History: WOUND OF LEG REQUIRED DEBRIBEMENT; ABCESS ON BACK REQUIRED I & D; ABCESS RIGHT HAND - Infectious Disease History Infectious Disease History: Reports: Hepatitis C, MRSA Other Infectious Disease History: PATIENT HAS LEARNING DISABILITY, POOR HISTORIAN - Past Surgical History Head Surgeries/Procedures: Reports: None HEENT Surgical History: Reports: None Cardiovascular Surgical History: Reports: None Respiratory Surgical History: Reports: None GI Surgical History: Reports: EGD Male Surgical History: Reports: None Endocrine Surgical History: Reports: None Neurological Surgical History: Reports: None Musculoskeletal Surgical History: Reports: Other (See Below) Other Musculoskeletal Surgeries/Procedures:: left great toe amputation Oncologic Surgical History: Reports: None Social & Family History - Family History Family Medical History: No Pertinent Family History - Tobacco Use Tobacco Use Status *Q: Never Tobacco User - Caffeine Use Caffeine Use: Reports: Coffee, Soda - Living Situation & Occupation Living situation: Reports: with Family (Lives with his sister.) Occupation: Disabled ED ROS GENERAL - Review of Systems Review Of Systems: Comprehensive ROS is negative, except as noted in HPI. ED EXAM, GENERAL - Physical Exam Exam: See Below Exam Limited By: No Limitations General Appearance: Alert, Mild Distress Eye Exam: Bilateral Eye: EOMI Ears: Normal External Exam, Hearing Grossly Normal Nose: Normal Inspection Throat/Mouth: Normal Inspection Head: Atraumatic, Normocephalic Neck: Normal Inspection Respiratory/Chest: Decreased Breath Sounds, Crackles (left base) Cardiovascular: Normal Peripheral Pulses, Regular Rate, Rhythm, JVD GI/Abdominal: Normal Bowel Sounds, Soft Extremities: Normal Inspection, Pedal Edema (2+), Other (dilaysis catheter left upper arm) Neurological: Alert, Oriented, Normal Cognition Psychiatric: Normal Affect Skin Exam: Warm, Dry, Intact #1 Interpretation EKG Date: 11/05/21 Time: 23:08 Rhythm: NSR Rate (Beats/Min): 103 P-Wave: Present QRS: Normal ST-T: Normal QT: Normal (Borderline 475mS) Comparison: NA - No Prior EKG Course - Vital Signs Last Recorded V/S: Last Vital Signs Temp 99.4 F 11/05/21 23:31 Pulse 117 H 11/05/21 23:31 Resp 24 H 11/05/21 23:31 BP 177/131 H 11/05/21 23:31 Pulse Ox 93 L 11/05/21 23:31 - Orders/Labs/Meds Labs: Laboratory Tests 11/05/21 11/05/21 11/05/21 Range/Units 23:00 23:00 23:00 WBC 11.4 H (5.0-10.0) 10^3/uL RBC 3.29 L (4.6-6.2) 10^6/uL Hgb 9.7 L D (14.0-18.0) g/dL Hct 31.4 L (40.0-54.0) % MCV 95.4 D (80-100) fL MCH 29.5 (27.0-34.0) pg MCHC 30.9 L (33.0-35.0) g/dL Plt Count 212 D (150-450) 10^3/uL Neut % (Auto) 80.2 H (42.2-75.2) % Lymph % (Auto) 7.3 L (20.5-50.1) % Surry % (Auto) 6.4 (2-8) % Eos % (Auto) 5.9 H (1.0-3.0) % Baso % (Auto) 0.2 (0.0-1.0) % PT 9.8 (9.0-12.0) SEC INR 1.0 (0.9-1.2) D-Dimer, Quantitative 977 H (0-400) ng/mL Sodium 139 (136-145) mmol/L Potassium 6.0 H D (3.5-5.1) mmol/L Chloride 102 (98-107) mmol/L Carbon Dioxide 22 (21-32) mmol/L Anion Gap 21.0 H (7-13) mEq/L BUN 89 H D (7-18) mg/dL Creatinine 8.73 H* (0.70-1.30) mg/dL Est Cr Clr Drug Dosing TNP Estimated GFR (MDRD) 7 BUN/Creatinine Ratio 10.2 (No establ ref range) Glucose 86 (70-99) mg/dL POC Glucose (70-99) mg/dL Lactic Acid (0.4-2.0) mmol/L Calcium 6.7 L D (8.5-10.1) mg/dL Magnesium 2.0 (1.8-2.4) mg/dL Total Bilirubin 0.5 (0.2-1.0) mg/dL AST 38 H (15-37) U/L ALT 40 (16-63) U/L Alkaline Phosphatase 106 (46-116) U/L Troponin I High Sens 27 (<=76) pg/mL B-Natriuretic Peptide 857 H (0-100) pg/ml Total Protein 7.0 (6.4-8.2) g/dL Albumin 3.3 L (3.4-5.0) g/dL Globulin 3.7 Albumin/Globulin Ratio 0.89 Ethyl Alcohol 3 (0) mg/dL SARS-CoV-2 RNA (KATT) (NEGATIVE) 11/05/21 11/05/21 11/06/21 Range/Units 23:00 23:30 02:10 WBC (5.0-10.0) 10^3/uL RBC (4.6-6.2) 10^6/uL Hgb (14.0-18.0) g/dL Hct (40.0-54.0) % MCV (80-100) fL MCH (27.0-34.0) pg MCHC (33.0-35.0) g/dL Plt Count (150-450) 10^3/uL Neut % (Auto) (42.2-75.2) % Lymph % (Auto) (20.5-50.1) % Surry % (Auto) (2-8) % Eos % (Auto) (1.0-3.0) % Baso % (Auto) (0.0-1.0) % PT (9.0-12.0) SEC INR (0.9-1.2) D-Dimer, Quantitative (0-400) ng/mL Sodium (136-145) mmol/L Potassium 6.6 H* (3.5-5.1) mmol/L Chloride (98-107) mmol/L Carbon Dioxide (21-32) mmol/L Anion Gap (7-13) mEq/L BUN (7-18) mg/dL Creatinine (0.70-1.30) mg/dL Est Cr Clr Drug Dosing Estimated GFR (MDRD) BUN/Creatinine Ratio (No establ ref range) Glucose (70-99) mg/dL POC Glucose (70-99) mg/dL Lactic Acid 0.6 (0.4-2.0) mmol/L Calcium (8.5-10.1) mg/dL Magnesium (1.8-2.4) mg/dL Total Bilirubin (0.2-1.0) mg/dL AST (15-37) U/L ALT (16-63) U/L Alkaline Phosphatase (46-116) U/L Troponin I High Sens (<=76) pg/mL B-Natriuretic Peptide (0-100) pg/ml Total Protein (6.4-8.2) g/dL Albumin (3.4-5.0) g/dL Globulin Albumin/Globulin Ratio Ethyl Alcohol (0) mg/dL SARS-CoV-2 RNA (KATT) Negative (NEGATIVE) 11/06/21 11/06/21 Range/Units 02:55 04:02 WBC (5.0-10.0) 10^3/uL RBC (4.6-6.2) 10^6/uL Hgb (14.0-18.0) g/dL Hct (40.0-54.0) % MCV (80-100) fL MCH (27.0-34.0) pg MCHC (33.0-35.0) g/dL Plt Count (150-450) 10^3/uL Neut % (Auto) (42.2-75.2) % Lymph % (Auto) (20.5-50.1) % Surry % (Auto) (2-8) % Eos % (Auto) (1.0-3.0) % Baso % (Auto) (0.0-1.0) % PT (9.0-12.0) SEC INR (0.9-1.2) D-Dimer, Quantitative (0-400) ng/mL Sodium (136-145) mmol/L Potassium (3.5-5.1) mmol/L Chloride (98-107) mmol/L Carbon Dioxide (21-32) mmol/L Anion Gap (7-13) mEq/L BUN (7-18) mg/dL Creatinine (0.70-1.30) mg/dL Est Cr Clr Drug Dosing Estimated GFR (MDRD) BUN/Creatinine Ratio (No establ ref range) Glucose (70-99) mg/dL POC Glucose 109 H 64 L (70-99) mg/dL Lactic Acid (0.4-2.0) mmol/L Calcium (8.5-10.1) mg/dL Magnesium (1.8-2.4) mg/dL Total Bilirubin (0.2-1.0) mg/dL AST (15-37) U/L ALT (16-63) U/L Alkaline Phosphatase (46-116) U/L Troponin I High Sens (<=76) pg/mL B-Natriuretic Peptide (0-100) pg/ml Total Protein (6.4-8.2) g/dL Albumin (3.4-5.0) g/dL Globulin Albumin/Globulin Ratio Ethyl Alcohol (0) mg/dL SARS-CoV-2 RNA (KATT) (NEGATIVE) Meds: Medications Discontinued Medications Generic Name Dose Route Start Last Admin Trade Name Freq PRN Reason Stop Dose Admin Bumetanide 2 mg 11/05/21 22:57 11/05/21 23:20 Bumetanide 1 Mg/4 Ml Mdv IVPUSH 11/05/21 22:58 2 mg ONETIME ONE Administration Calcium Gluconate 1 gm 11/06/21 02:38 11/06/21 03:01 Calcium Gluconate 10% 1 Gm/10 Ml Sdv IVPUSH 11/06/21 02:39 1 gm ONETIME ONE Administration Dextrose/Water 50 ml 11/06/21 02:41 11/06/21 03:17 50% Dextrose In Water 50 Ml Syringe IVPUSH 11/06/21 02:42 50 ml ONETIME ONE Administration Dextrose/Water 50 ml 11/06/21 02:52 50% Dextrose In Water 50 Ml Syringe IVPUSH Q15M PRN Hypoglycemia Dextrose/Water 50 ml 11/06/21 02:54 11/06/21 04:05 50% Dextrose In Water 50 Ml Syringe IVPUSH 11/06/21 02:55 50 ml ONETIME ONE Administration Furosemide 40 mg 11/05/21 22:50 11/05/21 23:22 Furosemide 40 Mg/4 Ml Vial IVPUSH 11/05/21 22:51 Not Given ONETIME ONE Glucagon 1 mg 11/06/21 02:52 Glucagon,Human Recombinant 1 Mg Vial IM Q15M PRN Hypoglycemia Insulin Regular in 0.9 % NACL 100 unit in 100 mls @ 11.249 mls/hr 11/06/21 02:45 Myxredlin In Ns 100 Unit/100 Ml IV TITRATE NITIN Protocol 0.1 UNITS/KG/HR Dextrose/Water 500 mls @ 50 mls/hr 11/06/21 02:55 11/06/21 03:29 Dextrose 10% In Water IV 11/06/21 12:54 50 mls/hr ONETIME ONE Administration Insulin Human Regular 10 unit 11/06/21 02:52 11/06/21 03:12 Insulin Regular, Human 100 Units/Ml 3 Ml Vial IV 11/06/21 02:53 10 unit ONETIME ONE Administration Labetalol HCl 10 mg 11/05/21 23:37 11/06/21 00:53 Labetalol 20 Mg/4 Ml Syringe IVPUSH 11/05/21 23:38 Not Given ONETIME ONE Labetalol HCl 5 mg 11/06/21 02:13 11/06/21 02:15 Labetalol 20 Mg/4 Ml Syringe IVPUSH 11/06/21 02:14 5 mg ONETIME ONE Administration - Re-Assessments/Exams Free Text/Narrative Re-Assessment/Exam: Blood pressure labile 140's-190 systolic diastolic upper 80's -110s. Improves with Labetolol. HR stable. Resting following Bumex. TC Dr Sheehan, [facility] Hospitalist. Recommendation Calcium Gluconate, Insulin and Dextrose to stabilize potassium. Dialysis is pending this am at 0500. Patient dozing arouses to voice, Denies c/o Departure - Departure Time of Disposition: 04:40 Disposition: Home, Self-Care 01 Condition: Fair Clinical Impression: Hyperkalemia, diminished renal excretion, Dialysis patient Dyspnea Qualifiers: Dyspnea type: shortness of breath Qualified Code(s): R06.02 - Shortness of breath Hypertension Qualifiers: Hypertension type: unspecified Qualified Code(s): I10 - Essential (primary) hypertension Congestive heart failure Qualifiers: Heart failure type: unspecified Heart failure chronicity: acute Qualified Code(s): I50.9 - Heart failure, unspecified - Discharge Information *PRESCRIPTION DRUG MONITORING PROGRAM REVIEWED*: No *COPY OF PRESCRIPTION DRUG MONITORING REPORT IN PATIENT WESLY: No Instructions: Hyperkalemia, [id number], Hypertension, Adult Forms: ED Department Discharge Additional Instructions: Take medications as directed Monitor blood sugar check at least hourly this am Follow up with primary care regarding elevated blood pressures Sepsis Event Note (ED) - Evaluation Sepsis Screening Result: No Definite Risk
== END 2021-11-06 05:14 | disposition home or self-care (01) ==
LOC: DL.ED 22:44
DX: R06.02 Shortness of breath (principal); I13.0 Hypertensive heart and chronic kidney disease with heart failure and stage 1 through stage 4 chronic kidney disease, or unspecified chronic kidney disease; E10.22 Type 1 diabetes mellitus with diabetic chronic kidney disease; N18.9 Chronic kidney disease, unspecified; I50.9 Heart failure, unspecified; K21.9 Gastro-esophageal reflux disease without esophagitis; E66.9 Obesity, unspecified; Z68.30 Body mass index [BMI] 30.0-30.9, adult; Z88.8 Allergy status to other drugs, medicaments and biological substances; Z79.899 Other long term (current) drug therapy; Z20.822 Contact with and (suspected) exposure to COVID-19; Z99.2 Dependence on renal dialysis
CPT/HCPCS: 36415; 71045; 80053; 80307; 82947; 83605; 83735; 83880; 84132; 84484; 85025; 85379; 85610; 87040; 93005; 96374; 96375; 99285; J0610; J1815; J3490; U0002

== ENCOUNTER 2021-12-26 07:20 | Emergency (ER) | payer MEDICARE, MEDICAID ==
[2021-12-26] MEDS ORDERED: Sodium Chloride 0.9% 10 ML Syringe FLUSH PRN (07:25)
[2021-12-26] MEDS ORDERED: Furosemide 100 MG/10 ML SDV IVPUSH ONE (07:30)
[2021-12-26] MEDS ORDERED: Nitroglycerin/D5W 25 MG/250 ML BOTTLE IV SCH (07:30)
[2021-12-26] MEDS ORDERED: Albuterol 0.083% 2.5 MG/3 ML Neb Soln NEB ONE (07:36)
[2021-12-26] MEDS ORDERED: Morphine 2 MG/ML SYRINGE IVPUSH ONE (07:37)
[2021-12-26] MEDS ORDERED: Midazolam 1 MG/ML 2 ML SDV ONE (07:50)
[2021-12-26] MEDS ORDERED: Midazolam 50 MG in Sodium Chloride 0.9% 50 ML IV SCH (08:00)
[2021-12-26] MEDS ORDERED: Midazolam 50 MG in Sodium Chloride 0.9% 40 ML IV SCH (08:00)
[2021-12-26] MEDS ORDERED: fentaNYL 100 MCG/2 ML SDV ONE ×2 (08:22→09:23)
[2021-12-26 08:36] LABS: SODIUM,NA 134 mmol/L (138-146)
[2021-12-26] MEDS ORDERED: Sodium Bicarbonate 100 MEQ in Dextrose 5% in Water 1,000 ML IV ONE ×2 (08:36)
[2021-12-26 08:37] LABS: ANION GAP 10.8 mEq/L (7-13); CHLORIDE,CL 109 mmol/L (98-107)
[2021-12-26] MEDS ORDERED: Sodium Bicarbonate 8.4% 50 MEQ/50 ML Syringe IVPUSH ONE (08:38)
[2021-12-26 08:40] LABS: BARBITURATES,URINE NEGATIVE (NEGATIVE); BENZODIAZEPINE,URINE NEGATIVE (NEGATIVE); MDMA (ECSTASY), URINE NEGATIVE (NEGATIVE); METHADONE,URINE NEGATIVE (NEGATIVE); METHAMPHETAMINES,URINE NEGATIVE (NEGATIVE); OPIATES,URINE NEGATIVE (NEGATIVE); PHENCYCLIDINE,URINE NEGATIVE (NEGATIVE); TCA,URINE NEGATIVE (NEGATIVE)
[2021-12-26 08:41] LABS: AMPHETAMINES,URINE NEGATIVE (NEGATIVE); OXYCODONE,URINE POSITIVE (NEGATIVE)
[2021-12-26 09:08] LABS: RESPIRATORY SYNCYTIAL VIR NAA NEGATIVE (NEGATIVE)
[2021-12-26 09:13] LABS: CORONAVIRUS COVID-19 NAA POSITIVE (NEGATIVE)
[2021-12-26] MEDS ORDERED: MIDAZOLAM IV ONE (09:30)
[2021-12-26] MEDS ORDERED: FENTANYL IV ONE (09:30)
[2021-12-26] MEDS ORDERED: SODIUM CHLORIDE 0.9% IV ONE (09:30)
[2021-12-26 09:34] VITALS: BP 111/86; PULSE 148
== END 2021-12-26 10:11 ==
LOC: DL.ED 07:20
DX: I46.9 Cardiac arrest, cause unspecified (principal); U07.1 COVID-19; I13.2 Hypertensive heart and chronic kidney disease with heart failure and with stage 5 chronic kidney disease, or end stage renal disease; E10.22 Type 1 diabetes mellitus with diabetic chronic kidney disease; E10.40 Type 1 diabetes mellitus with diabetic neuropathy, unspecified; N18.6 End stage renal disease; I50.9 Heart failure, unspecified; E87.5 Hyperkalemia; E66.9 Obesity, unspecified; Z68.30 Body mass index [BMI] 30.0-30.9, adult; Z88.8 Allergy status to other drugs, medicaments and biological substances; Z79.899 Other long term (current) drug therapy; Z99.2 Dependence on renal dialysis
CPT/HCPCS: 0241U; 31500; 36415; 36680; 71045; 80053; 80305-QW; 80307; 81001; 82947; 83605; 83735; 83880; 84100; 84484; 85025; 85610; 85730; 87040; 92950; 93005; 96365; 96367; 96375; 99285-25; J1940; J2250; J3010; J3490; J7050; J7060; J7613-GY